=== PATIENT | female | born 1945 | race Caucasian/White ===

== ENCOUNTER 2020-12-06 05:11 | Inpatient (IN) ==
--- NOTE | 2020-11-26 06:54 | History & Physical Report ---
Date of Service November 26, 2020 date of surgery: 12/06/20 Procedure: Right Total Knee Arthroplasty Assessment & Plan (1) Arthritis of right knee: Risks and benefits of procedure discussed in detail today, patient would like to proceed with a Right total knee replacement at [facility] as scheduled. will obtain medical clearance from Dr Zavala prior to surgery as well as obtain PATs at [facility]. Will place on ASA 81mg po bid x 1 month post op, f/u 2 weeks post op for routine post-operative care and x-ray, sooner if having any problems. will make arrangements for HHPT at the time of discharge. At this point in time, has failed conservative measures and would like to proceed with surgical intervention. The risks and benefits have been discussed including, but not limited to, risk of infection, nerve injury, stiffness, loss of motion, failure to improve, etc. Reasonable outcomes and options of treatment were discussed. An explanation of appropriate alternatives to the procedure that may be advantageous were discussed and their risks and benefits, as well as the risks and benefits of not proceeding with treatment. I offered to answer any additional inquiries concerning the treatment involved. All the patient's questions were answered. The patient is agreeable, understanding of the treatment plan and alternatives, and wishes to proceed with the treatment plan. History of Present Illness Chief Complaint: Right knee pain Primary Care Provider: Marshall Zavala DO Nikki is a 75 year old female who complains of Right knee pain, presents for pre-op evaluation prior to a Right total knee replacement by dr Coronel at [facility]. she complains of pain, decreased range of motion, and stiffness in her right knee. Currently the patient states that the symptoms are moderate-severe. The pain is described as aching, sharp and throbbing. The symptoms are aggravated by ascending stairs, daily activities, first steps while awake walking. Prior NSAIDs include IBU and Aleve. xrays show advanced DJD of the Right knee. Allergies Allergy/AdvReac Type Severity Reaction Status Date / Time No Known Allergies Allergy Mild 0 Verified 11/13/20 13:23 Home Medications Medication Instructions Recorded Confirmed Type Focus Factor 1 dose PO QDL 08/01/20 11/13/20 History levothyroxine 150 mcg PO QAM 08/01/20 11/13/20 History melatonin 20 mg PO HS 08/01/20 11/13/20 History mirabegron [Myrbetriq] 50 mg PO QDL 08/01/20 11/13/20 History oxazepam 30 mg PO TID 08/01/20 11/13/20 History peg 400-propylene glycol (PF) 1 drp OPHTHALMIC (EYE) BID PRN 08/01/20 11/13/20 History [Systane (PF)] vitamins A,C,R-jnxe-rjbvvp 1 tab PO QDL 08/01/20 11/13/20 History [PreserVision AREDS] Past Med/Surg History Medical History Anxiety Balance problem Dry eye syndrome Glaucoma Hypothyroidism Memory problem Osteoarthritis Overactive bladder Urinary incontinence Surgical History History of ankle surgery Left History of cataract surgery RT/LEFT History of colonoscopy History of hysterectomy with unilateral oophorectomy History of right hip replacement History of wisdom tooth extraction Family History Other No family history of adverse response to anesthesia Social History Smoking Status: Former smoker Smoking End Date: 20 + YEARS AGO; Second Hand Exposure: Yes (as a child); Do You Dip or Chew Tobacco: No; Tobacco Cessation Education Requested by Patient: No Hx Alcohol Use: Yes Alcohol type: wine Hx Substance Use: No Preferred Language: Anguill[place] Communication Ability: Effective Furniture Sander Required: No Beliefs That Will Affect Care: None Current Living Situation: Spouse Feels Safe at Home: Yes Safety Concerns: Feels Safe At This Time Assistive Devices: Cane, Glasses and Walker Review of Systems Review of Systems: All systems reviewed & are unremarkable except as noted in HPI & below Constitutional: no fever, no chills and no sweats Respiratory: no cough and no dyspnea Cardiovascular: no chest pain, no dyspnea and no orthopnea Gastrointestinal: no abdominal pain, no nausea and no vomiting Musculoskeletal: as per Subjective / HPI Physical Exam Physical Exam: HT: 5ft 5in WT: 81.6kg BP: 132/84 Constitutional: WD/WN, vitals as above no acute distress Respiratory: normal respiratory effort, lungs clear to auscultation no respiratory distress, no labored breathing and does not use accessory muscles Cardiovascular: RRR, no murmur, no edema Gastrointestinal (Abdomen): normal bowel sounds, soft, nontender, no hepatosplenomegaly Musculoskeletal: Knee: + knee abnormal to inspection (Right Knee- ), + effusion (+1 effusion), + surgical incision (well healed portals), + limited ROM of knee (ROM 0/3/110), + knee ROM with crepitation, + joint line tenderness (medial joint line) and + Brooklyn's sign positive; no deformity, no skin erythema, no ecchymosis, no valgus laxity, no varus laxity, anterior drawer test negative, Heatehr's sign negative and pivot shift test negative Results & Data Results & Data ([facility]) Diagnostic Findings right knee x-ray 4 view series complete loss joint space medial compartment with overall varus alignment, there is also narrowing of the lateral compartment and patellofemoral joint. there is osteophyte formation, subchondral sclerosis noted, no loose bodies, no acute bony pathology. overall impression tricompartmental degenerative changes to the right knee.
--- NOTE | 2020-11-28 10:18 | Anesthesiology Consultation ---
Date of Service November 28, 2020 Assessment & Plan (1) Encounter for pre-operative examination: Case was originally scheduled for 08/29/20. Seen at [facility] be me on 08/04/20. R/S due to COVID pandemic and lack of bed availability. PCP Clearance 08/10/20: "Labs, EKG and CXR personally reviewed. Patient is medically cleared for upcoming orthopedic surgery." COVID Status: As of 11/13 nurse assessment, patient denies travel to endemic area, known exposure/sick contacts, or symptoms of COVID19. Patient aware of need for pre-op COVID test, to be arranged by surgeon's office. Surgeon ordered a UA/culture, and patient was unable to void when she went for her lab work on 11/13. L/M at [facility] for them to f/u with her. Chart Review Chart Review: Acceptable Risk for Surgery and entry level project coordinator initiated (seen at [facility] 08/04/20, surgery R/S due to COVID pandemic) History Surgery Operation Date: 12/06/20 10:05 Proposed Procedures p Right Total Knee Arthroplasty - Hero Coronel DO Height/Weight Height: 5 ft 5 in Weight: 81.647 kg Allergies Allergy/AdvReac Type Severity Reaction Status Date / Time No Known Allergies Allergy Mild 0 Verified 11/13/20 13:23 Medications Home Medications Medication Instructions Recorded Confirmed Last Taken Focus Factor 1 dose PO QDL 08/01/20 11/13/20 Unknown levothyroxine 150 mcg PO QAM 08/01/20 11/13/20 Unknown melatonin 20 mg PO HS 08/01/20 11/13/20 Unknown mirabegron [Myrbetriq] 50 mg PO QDL 08/01/20 11/13/20 Unknown oxazepam 30 mg PO TID 08/01/20 11/13/20 Unknown peg 400-propylene glycol (PF) 1 drp OPHTHALMIC (EYE) BID PRN 08/01/20 11/13/20 Unknown [Systane (PF)] vitamins A,C,D-kqoz-kndhuj 1 tab PO QDL 08/01/20 11/13/20 Unknown [PreserVision AREDS] Past Medical History Medical History Anxiety Balance problem Dry eye syndrome Glaucoma Hypothyroidism Memory problem Osteoarthritis Overactive bladder Urinary incontinence Past Family History Family History Other No family history of adverse response to anesthesia Past Surgical History Surgical History History of ankle surgery Left History of cataract surgery RT/LEFT History of colonoscopy History of hysterectomy with unilateral oophorectomy History of right hip replacement History of wisdom tooth extraction Social History Smoking Status: Former smoker tobacco type: cigarettes Do You Dip or Chew Tobacco: No Smoking End Date: 20 + YEARS AGO Hx Alcohol Use: Yes Alcohol type: wine alcohol intake frequency: holidays/special occasions only Hx Substance Use: No substance use type: does not use Testing Laboratory Results 11/13/20 WBC: 7.0 H/H: 12.4/37.4 PLATELETS: 325 SODIUM: 135 POTASSIUM: 4.0 CHLORIDE: 100 CO2: 27 BUN: 9 CREATININE: 0.70 GLUCOSE: 109 A1C: 5.3% PT: 11.1 INR: 1.0 TYPE AND SCREEN (08/04/20): O+, antibody screen +. Per blood bank, no further testing needed prior to surgery. Electrocardiogram Date: 08/04/20 Findings: + SB @ (57bpm) with sinus arrhythmia. Chest X-Ray Date: 08/04/20 Findings: + NAD
[2020-12-06] MEDS ORDERED: TRANEXAMIC ACID 1,000 MG **IV Intra-op IV SCH (06:00)
[2020-12-06] MEDS ORDERED: METOCLOPRAMIDE HCL 10 MG TABLET PO SCH (06:00)
[2020-12-06] MEDS ORDERED: TRANEXAMIC ACID 1,000 MG **IV Pre-op IV SCH (06:00)
[2020-12-06] MEDS ORDERED: FAMOTIDINE 20 MG TAB PO SCH (06:00)
[2020-12-06] MEDS ORDERED: CeleBREX 200 MG CAP PO SCH (06:00)
[2020-12-06] MEDS ORDERED: GABAPENTIN 300 MG CAP PO SCH (06:00)
[2020-12-06] MEDS ORDERED: oxyCODONE HCL 10 MG TABCR (OxyCONTIN) PO SCH (06:00)
[2020-12-06] MEDS ORDERED: ROPIVACAINE 0.5% HCL/PF 150 MG, BUPIVACAINE 0.75% MPF 20 ML, EPINEPHrine 30MG/30ML (OR ... INSTIL SCH (06:00)
[2020-12-06] MEDS ORDERED: ceFAZolin 2000MG 2,000 MG/15 ML SYR IV SCH (06:00)
[2020-12-06] MEDS ORDERED: LR 500ML BOLUS, THEN 15ML/HR IV SCH (06:00)
[2020-12-06] MEDS ORDERED: ACETAMINOPHEN 500 MG TAB PO SCH (06:00)
[2020-12-06] MEDS ORDERED: BUPIVACAINE 0.25% 30 ML VIAL ONE (06:14)
[2020-12-06] MEDS ORDERED: BUPIVACAINE 0.5 % 5 MG/1 ML PF 10ML VIAL ONE (06:14)
[2020-12-06] MEDS ORDERED: EPINEPHrine INJ 1 MG/ML AMP ONE (06:14)
[2020-12-06] MEDS ORDERED: fentaNYL citrate 100 MCG/2 ML VIAL IV PRN (06:43)
[2020-12-06] MEDS ORDERED: ATROPINE SULFATE 0.1 MG/ML 10ML SYR IV PRN (06:43)
[2020-12-06] MEDS ORDERED: ONDANSETRON INJ 2 MG/ML 2 ML VIAL IV PRN ×2 (06:43→09:48)
[2020-12-06] MEDS ORDERED: HYDROmorphone INJ 2 MG/ML SYR/VIAL IV PRN (06:43)
[2020-12-06] MEDS ORDERED: ePHEDrine sulfate 50 MG/ML AMP IV PRN (06:43)
[2020-12-06] MEDS ORDERED: LIDOCAINE HCL 2% 2 ML VIAL/AMP(20MG/ML) INFIL ONE (06:45)
[2020-12-06] MEDS ORDERED: PROPOFOL IV EMULSION 10 MG/ML 20 ML VIAL IV ONE ×2 (06:45→08:07)
[2020-12-06] MEDS ORDERED: MIDAZOLAM HCL 1 MG/ML 2ML VIAL ONE ×2 (06:45→06:46)
[2020-12-06] MEDS ORDERED: fentaNYL citrate 100 MCG/2 ML VIAL ONE (06:46)
[2020-12-06] MEDS ORDERED: BACITRACIN INJ 50,000 UNIT VIAL ONE (06:49)
[2020-12-06] MEDS ORDERED: ORTHO JOINT ANESTHETIC ONE (06:49)
--- NOTE | 2020-12-06 07:01 | History & Physical Bridge Note ---
Date of Service December 06, 2020 History & Physical Bridge Note I have examined the patient, reviewed the History & Physical and in the interval since the performance of the History & Physical I have noted the following changes of clinical significance: no changes noted
--- NOTE | 2020-12-06 08:14 | Operative Report ---
Post Operative Report Pre & Post Diagnosis Operation Date: 12/06/20 07:00 Pre-Op Diagnosis: Osteoarthritis, Right Knee Post-Op Diagnosis: Osteoarthritis, Right Knee I identified the patient and participated in the time-out.: Yes Procedure Operation Date: 12/06/20 07:00 Actual Procedures p Right Total Knee Arthroplasty(Right) utilizing [employer] nonblock journey to total knee arthroplasty size 5 femur 4 tibia 10 polyethylene 32 oval patella- Hero Coronel DO Surgeon Hero Coronel DO Professor Of Medicine [facility] COLMENARES Estimated Blood Loss 5 Findings Consistent with Post-Op Diagnosis Patient presents with severe end-stage DJD valgus alignment of 15degrees with a pseudolaxity of her medial collateral ligament eburnated bone marginal osteophyte subchondral sclerosis with subchondral cystic changes and a large effusion Specimens Bone and cartilage Drains Medium bore Hemovac Anesthesia Type MAC Spinal Regional Disposition Accompanied Patient To Recovery: No Disposition: Recovery Room Indications Patient presents with severe end-stage DJD right knee no response to conservative management transfer right total knee arthroplasty for failed attempted corticosteroid injection Visco supplementation bracing relative rest activity modification Description of Procedure After proper prepping and draping of the Right lower extremity anterior midline incision was made over the region of the extensor extensor mechanism after meticulous hemostasis was obtained and maintained in subcutaneous tissues a medial parapatellar incision was made The patella was subluxed lateralward the medial lateral gutter were cleaned from any hypertrophic synovitis and scar tissue of the distal femoral block was placed and the distal femoral osteotomy cut was made subsequently the chamfers anterior and posterior osteotomy cuts were made utilizing the 4-in-1 block the tibia was subsequently subluxed anteriorward medial and ateral meniscal remnants were excised in their entirety remnants of the anterior and posterior cruciate ligaments were excised in their entirety excellent exposure of the proximal tibia was obtained the tibial osteotomy guide was placed on the proximal tibial osteotomy cut was made once again the knee was irrigated with copious amounts of sterile saline solution the patella was subsequently everted lateralward thickened scar tissue around the patella was removed the patella was subsequently cut utilizing a freehand technique and was drilled prepared for final preparation and placement of pa tella haritha flexion-extension gaps were checked and the equal and symmetric trials were placed to the appropriate femoral and tibial trials with poly-spacer being placed for equal flexion and extension gaps and full range of motion including extension to 0 and flexion to 140 the trial components after having been taken to recovery range of motion was subsequently removed meticulous hemostasis was obtained and maintained subsequently a knee block injection of joint cocktail including ropivacaine 0.5% 150 mg. Bupivacaine 0.5% epinephrine 1-200,030 mL's toradol 30 mg dexamethasone 4 mg ketamine 10 mg clonidine 100 micrograms normal saline solution 30 mg was infiltrated into the soft tissues of the posterior knee medial lateral gutters and periosteal synovium special attention was paid to protect neurovascular structures at all times subsequently trial components having been removed the knee was irrigated with sterile saline solution. debris was removed the proximal tibia was subsequently prepared and was made ready for the placement of the tibial component tibial component was also cemented and tamped into position the femoral component was subsequently placed and cemented in the position the patellar component was subsequently cemented in position because hemostasis once again obtained and maintained wound having been thoroughly irrigated with debridement and debridement lavage was performed as well as a medial parapatellar incision closed with #1 Vicryl in interrupted fashion subcutaneous was closed with #2 Vicryl skin was closed with skin clips. PA-C was necessary for prepping and drapping as well as wound closure of deep fascia Sub cutaneous tissue and skin and was necessary for the case. A sterile compressive dressing was placed patient was taken to recovery in stable condition of report dictated by Homer I attest to the content of the Intraoperative Record and any orders documented therein. Any exceptions are noted below. I attest to the content of the Intraoperative Record and any orders documented therein. Any exceptions are noted below.
--- NOTE | 2020-12-06 09:15 | XRay Report ---
RIGHT KNEE 2 VIEWS History: Right total knee arthroplasty. Degenerative arthritis. Postop. FINDINGS: The patient is status post a right total knee arthroplasty. The hardware is intact. No frac ture or dislocation. Skin melissa and surgical drains are in place. IMPRESSION: Right total knee arthroplasty. No evidence for hardware complication. ACT 112: Negative or not required by law. Electronically signed by: Evans Prakash M.D. 12/06/2020 9:14 AM
[2020-12-06] MEDS ORDERED: HYDROmorphone INJ 1 MG/ML SYRINGE IV PRN (09:48)
[2020-12-06] MEDS ORDERED: MAGNESIUM HYDROXIDE SUSP 30 ML UDC PO PRN (09:48)
[2020-12-06] MEDS ORDERED: bisacodyL 10 MG SUPP PR PRN (09:48)
[2020-12-06] MEDS ORDERED: METOCLOPRAMIDE HCL INJ 5 MG/ML 2 ML VIAL IV PRN (09:48)
[2020-12-06] MEDS ORDERED: NALOXONE HCL 0.4 MG/1 ML VIAL/CARP IV PRN (09:48)
[2020-12-06] MEDS ORDERED: diphenhydrAMINE Capsule 25 MG CAP PO PRN (09:48)
[2020-12-06] MEDS ORDERED: oxyCODONE HCL IR 5 MG TAB (IMMEDIATE RELEASE) PO PRN (09:48)
--- NOTE | 2020-12-06 09:48 | Anesthesiology Progress Note ---
Date of Service December 06, 2020 Anesthesia Post Procedure Vital Signs Vital Signs: Temp Pulse Pulse Resp BP BP Pulse Ox 12/06/20 09:15 36.3 C L 77 16 105/54 L 98 12/06/20 09:05 84 15 110/49 L 98 12/06/20 08:55 92 H 16 115/56 L 98 12/06/20 08:49 36.1 C L 103 H 16 117/72 97 12/06/20 05:41 36.6 C 66 18 139/68 97 Transfer of Care Handoff Completed per policy Notes Mental Status: alert / awake / arousable and participated in evaluation Patient Amnestic to Procedure: Yes Nausea / Vomiting: adequately controlled Pain: adequately controlled Airway Patency, RR, SpO2: stable & adequate BP & HR: stable & adequate Hydration State: stable & adequate Anesthetic Complications: no major complications apparent and Pt Satisfied with anesthetic care
[2020-12-06] MEDS: SODIUM CHLORIDE 0.9% 1000ML 1,000 ML IV SCH ×2 (10:11→21:33)
[2020-12-06] MEDS ORDERED: ARTIFICIAL TEARS OP PRN (10:17)
[2020-12-06] MEDS: MULTIVITAMIN TAB PO SCH (11:01)
[2020-12-06] MEDS: ASPIRIN 81 MG ECTAB PO SCH ×2 (11:01→21:24)
[2020-12-06] MEDS: DOCUSATE SODIUM 100 MG CAP PO SCH ×2 (11:01→21:24)
[2020-12-06] MEDS: MIRABEGRON ER 25 MG TAB PO SCH (11:01)
[2020-12-06] MEDS: KETOROLAC TROMETHAMINE 15 MG/ML VIAL IV SCH ×3 (11:03→23:10)
[2020-12-06] MEDS: LORazepam 1 MG TAB PO SCH ×2 (15:04→21:33)
[2020-12-06] MEDS: ACETAMINOPHEN 500 MG TAB PO SCH ×2 (15:05→21:24)
[2020-12-06] MEDS: ceFAZolin 2000MG 2,000 MG/15 ML SYR IV SCH ×2 (15:12→23:10)
[2020-12-06] MEDS: SENNA 8.6 MG TAB PO SCH (21:24)
[2020-12-06] MEDS: MELATONIN 3 MG TAB PO SCH (21:33)
[2020-12-07] MEDS: KETOROLAC TROMETHAMINE 15 MG/ML VIAL IV SCH (05:47)
[2020-12-07] MEDS: LEVOTHYROXINE SODIUM 150 MCG TABLET PO SCH (05:47)
[2020-12-07] MEDS: ACETAMINOPHEN 500 MG TAB PO SCH ×3 (05:47→20:53)
[2020-12-07 06:47] LABS: Hemoglobin 10.6 g/dL (12.0-16.0); Mean Corpuscular Hemoglobin 31.4 pg (25-34); Mean Corpuscular Hgb Conc 34.2 g/dL (32-36); Mean Corpuscular Volume 91.7 fL (80-100); Mean Platelet Volume 10.1 fL (7.4-10.4); Platelet Count 298 K/uL (130-400); RDW Coefficient of Variation 12.1 % (11.5-14.5); RDW Standard Deviation 41.2 fL (36.4-46.3); Red Blood Count 3.38 M/uL (4.2-5.4); White Blood Count 16.12 K/uL (4.8-10.8)
[2020-12-07] MEDS: SODIUM CHLORIDE 0.9% 1000ML 1,000 ML IV SCH (06:57)
[2020-12-07 07:13] LABS: BUN Creatinine Ratio 13.2 (10-20); Est GFR (African American) 57.7; Est GFR (Non-African American) 49.8; Potassium 3.4 mmol/L (3.5-5.1)
--- NOTE | 2020-12-07 07:48 | Orthopedic Progress Note ---
Date of Service December 07, 2020 Assessment & Plan (1) History of total right knee replacement: POD #1 s/p Right TKA pt/ot dvt proph with JIL/SCD/ASA plan for d/c home with home health PT, recheck after PT today. Admission and Anticipated Discharge Date Admission Date: December 06, 2020 Subjective POD #1 s/p Right TKA Review of Systems Constitutional: no fever, no chills and no sweats Respiratory: no cough and no dyspnea Cardiovascular: no chest pain and no dyspnea Gastrointestinal: no abdominal pain, no nausea and no vomiting Physical Exam Physical Exam: Vital Signs Temp 37.0 C 12/07/20 07:17 Pulse 74 12/07/20 07:17 Resp 18 12/07/20 07:17 BP 151/71 H 12/07/20 07:17 Pulse Ox 97 12/07/20 07:17 Intake & Output 12/06/20 12/07/20 12/07/20 18:59 06:59 18:59 Intake Total 2275 / 3635 1360 / 3635 Output Total 480 / 2505 2025 / 2505 250 / 250 Balance 1795 / 1130 -665 / 1130 -250 / -250 Intake: IV 800 / 1800 1000 / 1800 Lr 1,000 ml @ 15 mls/hr IV . 600 / 600 Q24H [facility] Rx#:[id number] Nss 1000ML 1,0 00 ml @ 100 mls/ 1000 / 1000 hr IV .Q10H [facility] Rx#:[id number] TRANEXAMIC ACI D / 0.7% NACL 1, 200 / 200 000 mg In 100 ml @ 600 mls/hr IV TODAY@0600 [facility] Rx#:[id number] IV Perioperative 900 / 900 Oral 575 / 935 360 / 935 Output: Urine 400 / 2275 1875 / 2275 250 / 250 Estimated Blood Loss 5 / 5 Drain Output 75 / 225 150 / 225 Right Knee Hem ovac 75 / 225 150 / 225 Constitutional: WD/WN, vitals as above no acute distress Musculoskeletal: Right Leg: NVDI, calf SNT, negative anna sign. DP palpable, able to wiggle toes/ankle movement without difficulty. dressing clean dry and intact. Results & Data ([facility]) Vital Signs (Past 12 Hours) Vital Signs Temp Pulse Pulse Resp BP Pulse Ox 12/07/20 07:17 37.0 C 74 18 151/71 H 97 12/07/20 02:00 36.3 C L 73 20 127/65 96 12/06/20 22:00 37.2 C 83 20 131/67 94 Laboratory Results Laboratory Results WBC 16.12 K/uL (4.8-10.8) H 12/07/20 06:29 RBC 3.38 M/uL (4.2-5.4) L 12/07/20 06:29 Hgb 10.6 g/dL (12.0-16.0) L 12/07/20 06:29 Hct 31.0 % (37-47) L 12/07/20 06:29 MCV 91.7 fL (80-100) 12/07/20 06:29 MCH 31.4 pg (25-34) 12/07/20 06:29 MCHC 34.2 g/dL (32-36) 12/07/20 06:29 RDW Std Deviation 41.2 fL (36.4-46.3) 12/07/20 06:29 RDW Coeff of Sandra 12.1 % (11.5-14.5) 12/07/20 06:29 Plt Count 298 K/uL (130-400) 12/07/20 06:29 MPV 10.1 fL (7.4-10.4) 12/07/20 06:29 Sodium 142 mmol/L (136-145) 12/07/20 06:29 Potassium 3.4 mmol/L (3.5-5.1) L 12/07/20 06:29 Chloride 111 mmol/L (98-107) H 12/07/20 06:29 Carbon Dioxide 25 mmol/L (21-32) 12/07/20 06:29 Anion Gap 6.0 (3-11) 12/07/20 06:29 BUN 14 mg/dl (7-18) 12/07/20 06:29 Creatinine 1.08 mg/dl (0.6-1.2) 12/07/20 06:29 Est Cr Clr Drug Dosing 46.0 ml/min 12/07/20 06:29 Est GFR ( Amer) 57.7 12/07/20 06:29 Est GFR (Non-Af Amer) 49.8 12/07/20 06:29 BUN/Creatinine Ratio 13.2 (10-20) 12/07/20 06:29 Glucose 105 mg/dl (70-99) H 12/07/20 06:29 Calcium 9.0 mg/dl (8.5-10.1) 12/07/20 06:29 Blood Type O Positive 12/06/20 05:37 Antibody Screen POSITIVE A 12/06/20 05:37 Antibody Identification Anti-E Anti-c 12/06/20 05:37 Antibody Identification Anti-E Anti-c 12/06/20 05:37 Antibody ID Comment 12/06/20 05:37 Crossmatch See Detail 12/06/20 05:37 Diagnostic Findings RIGHT KNEE 2 VIEWS History: Right total knee arthroplasty. Degenerative arthritis. Postop. FINDINGS: The patient is status post a right total knee arthroplasty. The hardware is intact. No fracture or dislocation. Skin melissa and surgical drains are in place. IMPRESSION: Right total knee arthroplasty. No evidence for hardware complication.
[2020-12-07] MEDS: DOCUSATE SODIUM 100 MG CAP PO SCH ×2 (09:32→20:50)
[2020-12-07] MEDS: LORazepam 1 MG TAB PO SCH ×3 (09:32→20:59)
[2020-12-07] MEDS: MULTIVITAMIN TAB PO SCH (09:33)
[2020-12-07] MEDS: ASPIRIN 81 MG ECTAB PO SCH ×2 (09:33→20:52)
--- NOTE | 2020-12-07 10:21 | Orthopedic Progress Note ---
Date of Service December 07, 2020 Assessment & Plan (1) History of total right knee replacement: POD #1 s/p Right TKA pt/ot dvt proph with JIL/SCD/ASA plan for d/c home with home health PT, recheck after PT today. Admission and Anticipated Discharge Date Admission Date: December 06, 2020 Subjective Postop day 1 Patient sitting up in bed awake and alert. Pain is controlled. She had a rough night with not sleeping much. Denies shortness of breath, chest pain, lightheadedness. She is hoping to go home today. Physical Exam Physical Exam: Dressings are clean, dry, and intact. Calves are soft nontender. Neurovascular intact. Toes are mobile. She has good dorsiflexion and plantarflexion of the right foot. Hemovac drainage was around 50 mL from the previous shift. Results & Data ([facility]) Vital Signs (Past 12 Hours) Vital Signs Temp Pulse Pulse Resp BP Pulse Ox 12/07/20 07:17 37.0 C 74 18 151/71 H 97 12/07/20 02:00 36.3 C L 73 20 127/65 96 Laboratory Results Laboratory Results WBC 16.12 K/uL (4.8-10.8) H 12/07/20 06:29 RBC 3.38 M/uL (4.2-5.4) L 12/07/20 06:29 Hgb 10.6 g/dL (12.0-16.0) L 12/07/20 06:29 Hct 31.0 % (37-47) L 12/07/20 06:29 MCV 91.7 fL (80-100) 12/07/20 06:29 MCH 31.4 pg (25-34) 12/07/20 06:29 MCHC 34.2 g/dL (32-36) 12/07/20 06:29 RDW Std Deviation 41.2 fL (36.4-46.3) 12/07/20 06:29 RDW Coeff of Sandra 12.1 % (11.5-14.5) 12/07/20 06:29 Plt Count 298 K/uL (130-400) 12/07/20 06:29 MPV 10.1 fL (7.4-10.4) 12/07/20 06:29 Sodium 142 mmol/L (136-145) 12/07/20 06:29 Potassium 3.4 mmol/L (3.5-5.1) L 12/07/20 06:29 Chloride 111 mmol/L (98-107) H 12/07/20 06:29 Carbon Dioxide 25 mmol/L (21-32) 12/07/20 06:29 Anion Gap 6.0 (3-11) 12/07/20 06:29 BUN 14 mg/dl (7-18) 12/07/20 06:29 Creatinine 1.08 mg/dl (0.6-1.2) 12/07/20 06:29 Est Cr Clr Drug Dosing 46.0 ml/min 12/07/20 06:29 Est GFR ( Amer) 57.7 12/07/20 06:29 Est GFR (Non-Af Amer) 49.8 12/07/20 06:29 BUN/Creatinine Ratio 13.2 (10-20) 12/07/20 06:29 Glucose 105 mg/dl (70-99) H 12/07/20 06:29 Calcium 9.0 mg/dl (8.5-10.1) 12/07/20 06:29 Blood Type O Positive 12/06/20 05:37 Antibody Screen POSITIVE A 12/06/20 05:37 Antibody Identification Anti-E Anti-c 12/06/20 05:37 Antibody Identification Anti-E Anti-c 12/06/20 05:37 Antibody ID Comment 12/06/20 05:37 Crossmatch See Detail 12/06/20 05:37
[2020-12-07] MEDS: MIRABEGRON ER 25 MG TAB PO SCH (12:55)
[2020-12-07] MEDS: traMADol HCL 50 MG TABLET PO PRN ×2 (17:10→21:11)
[2020-12-07] MEDS: SENNA 8.6 MG TAB PO SCH (20:51)
[2020-12-07] MEDS: CeleBREX 200 MG CAP PO SCH (20:52)
[2020-12-07] MEDS ORDERED: QUEtiapine FUMARATE 25 MG TABLET PO SCH (21:00)
[2020-12-07] MEDS: MELATONIN 3 MG TAB PO SCH (21:58)
--- NOTE | 2020-12-07 22:27 | Hospitalist Consultation ---
Date of Consultation December 07, 2020 Assessment & Plan (1) Acute metabolic encephalopathy: Appears patient has metabolic encephalopathy, may be multifactorial, perhaps being in the hospital, effects from anesthesia, effect from lorazepam. Will add seroquel 25 mg PO HS. will monitor, May require to increase dose. will continue benzo, melatonin DVT per primary service (2) Anxiety: continue benzo. History of Present Illness Reason for Consultation: confusion Attending Physician: Hero Coronel DO History of Present Illness 75 yo female with PMH of anxiety presents to the hospital for a Right total knee replacemet. After the procedure, patient has been confused. She is a poor historian. Orthopedic service consulted medicine for assistance. Allergies Allergy/AdvReac Type Severity Reaction Status Date / Time No Known Allergies Allergy Mild 0 Verified 12/06/20 05:35 Home Medications Medication Instructions Recorded Confirmed Type Focus Factor 1 dose PO QDL 08/01/20 12/06/20 History levothyroxine 150 mcg PO QAM 08/01/20 11/13/20 History melatonin 20 mg PO HS 08/01/20 12/06/20 History mirabegron [Myrbetriq] 50 mg PO QDL 08/01/20 12/06/20 History oxazepam 30 mg PO TID 08/01/20 11/13/20 History peg 400-propylene glycol (PF) 1 drp OPHTHALMIC (EYE) BID PRN 08/01/20 12/06/20 History [Systane (PF)] vitamins A,C,P-pbyo-eoqhns 1 tab PO QDL 08/01/20 12/06/20 History [PreserVision AREDS] acetaminophen 1,000 mg PO Q8 21 Days #126 tab 12/07/20 Rx aspirin 81 mg PO BID 30 Days #60 tab 12/07/20 Rx cefadroxil 500 mg PO BID 7 Days #14 cap 12/07/20 Rx celecoxib [Celebrex] 200 mg PO BID 30 Days #60 cap 12/07/20 Rx docusate sodium 100 mg PO BID 10 Days #20 cap 12/07/20 Rx Patient History Medical History Anxiety Balance problem Dry eye syndrome Glaucoma Hypothyroidism Memory problem Osteoarthritis Overactive bladder Urinary incontinence Surgical History History of ankle surgery Left History of cataract surgery RT/LEFT History of colonoscopy History of hysterectomy with unilateral oophorectomy History of right hip replacement History of wisdom tooth extraction Family History Other No family history of adverse response to anesthesia Social History Smoking Status: Former smoker Smoking End Date: 20 + YEARS AGO; Second Hand Exposure: Yes (as a child); Do You Dip or Chew Tobacco: No; Tobacco Cessation Education Requested by Patient: No Hx Alcohol Use: Yes Alcohol type: wine Hx Substance Use: No Preferred Language: Vincentian Communication Ability: Effective 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: No Beliefs That Will Affect Care: None marital status: Current Living Situation: Spouse Feels Safe at Home: Yes Safety Concerns: Feels Safe At This Time Assistive Devices: Denture - Upper, Glasses and Walker Review of Systems Review of Systems: Unobtainable due to cognitive status Physical Exam Constitutional: WD/WN, vitals as above Eyes: PERRL, conjunctivae normal, anicteric sclerae ENMT: external ear and nose normal, oropharynx normal Neck: trachea midline, no thyromegaly Respiratory: normal respiratory effort, lungs clear to auscultation Cardiovascular: RRR, no murmur, no edema Gastrointestinal (Abdomen): normal bowel sounds, soft, nontender, no hepatosplenomegaly Musculoskeletal: no cyanosis or clubbing, extremities motor strength 5/5 Skin: no rashes, warm and dry Psychiatric: A+Ox3, euthymic affect Results & Data Results & Data ([facility]) Vital Signs (Past 12 Hours) Vital Signs Temp Pulse Resp BP Pulse Ox 12/07/20 20:05 37.2 C 104 H 18 184/82 H 93 12/07/20 15:56 97 12/07/20 15:02 36.8 C 106 H 18 144/75 H 96 PG Care Time/CCT Total # of Minutes Spent Total Time Spent with Patient: Total time spent is greater than 50% in coordination of care (as documented) at patient's floor/unit and/or counseling patient: Coding Level of Care Code 80320 Inpt Consult Level 4 Diagnoses Acute metabolic encephalopathy G93.41 Anxiety F41.9 Time Spent (min) 40
[2020-12-08] MEDS: ACETAMINOPHEN 500 MG TAB PO SCH ×4 (06:03→22:32)
[2020-12-08] MEDS: LEVOTHYROXINE SODIUM 150 MCG TABLET PO SCH (06:04)
[2020-12-08 06:49] LABS: Basophils # (auto) 0.03 K/uL (0-0.2); Basophils % (auto) 0.2 %; Eosinophils # (auto) 0.28 K/uL (0-0.5); Eosinophils % (auto) 2.2 %; Hematocrit (blood only) 28.7 % (37-47); Hemoglobin 9.5 g/dL (12.0-16.0); Immature Granulocytes # (auto) 0.03 K/uL (0.00-0.02); Immature Granulocytes % (auto) 0.2 %; Lymphocytes # (auto) 2.17 K/uL (1.2-3.4); Lymphocytes % (auto) 17.1 %; Mean Corpuscular Hemoglobin 30.6 pg (25-34); Mean Corpuscular Hgb Conc 33.1 g/dL (32-36); Mean Corpuscular Volume 92.6 fL (80-100); Mean Platelet Volume 10.1 fL (7.4-10.4); Monocytes # (auto) 1.61 K/uL (0.11-0.59); Monocytes % (auto) 12.7 %; Neutrophils # (auto) 8.59 K/uL (1.4-6.5); Neutrophils % (auto) 67.6 %; Platelet Count 285 K/uL (130-400); RDW Coefficient of Variation 12.4 % (11.5-14.5); RDW Standard Deviation 41.7 fL (36.4-46.3); White Blood Count 12.71 K/uL (4.8-10.8)
[2020-12-08 07:21] LABS: BUN Creatinine Ratio 12.3 (10-20); Calcium 8.4 mg/dl (8.5-10.1); Creatinine Clr Calc Pharmacy 59.9 ml/min; Est GFR (African American) 79.4; Est GFR (Non-African American) 68.5; Phosphorus 3.5 mg/dl (2.5-4.9); Potassium 3.5 mmol/L (3.5-5.1)
--- NOTE | 2020-12-08 07:35 | Orthopedic Progress Note ---
Date of Service December 08, 2020 Assessment & Plan (1) History of total right knee replacement: POD #2 s/p Right TKA pt/ot dvt proph with JIL/SCD/ASA plan for d/c home with home health PT, recheck after PT today. she is less confused today, alert to place and time. she is aware that she is at [facility] and that Dr Coronel is her surgeon. will recheck later today to check her progress. hold oxycodone, currently on Tylenol and Ultram. Admission and Anticipated Discharge Date Admission Date: December 06, 2020 Subjective POD #2 s/p Right TKA Review of Systems Constitutional: no fever and no chills Respiratory: no cough and no dyspnea Cardiovascular: no chest pain, no dyspnea and no orthopnea Gastrointestinal: no abdominal pain, no nausea and no vomiting Physical Exam Physical Exam: Vital Signs Temp 36.2 C L 12/08/20 07:10 Pulse 100 H 12/08/20 07:10 Resp 18 12/08/20 07:10 BP 178/82 H 12/08/20 07:10 Pulse Ox 96 12/08/20 07:10 Intake & Output 12/07/20 12/08/20 12/08/20 18:59 06:59 18:59 Intake Total 1000 / 1000 Output Total 300 / 300 Balance 700 / 700 Intake: IV 1000 / 1000 Nss 1000ML 1,0 00 ml @ 100 mls/ 1000 / 1000 hr IV .Q10H SC H Rx#:[id number] Output: Urine 250 / 250 Drain Output 50 / 50 Right Knee Hem ovac 50 / 50 Other: # Unmeasured Voi ds 1 Constitutional: WD/WN, vitals as above no acute distress alert and oriented to place and time, able to identify Dr Coronel as her surgeon and that she had her right knee replaced. Cardiovascular: RRR, no murmur, no edema Gastrointestinal (Abdomen): normal bowel sounds, soft, nontender, no hepatosplenomegaly Musculoskeletal: Right leg: NVDI, calf SNT, negative anna sign. DP palpable, able to wiggle toes/ankle movement without difficulty. dressing clean dry and intact. expected post-operative bruising noted. Results & Data ([facility]) Vital Signs (Past 12 Hours) Vital Signs Temp Pulse Resp BP Pulse Ox 12/08/20 07:10 36.2 C L 100 H 18 178/82 H 96 12/08/20 02:15 37.0 C 104 H 16 159/82 H 93 12/07/20 20:05 37.2 C 104 H 18 184/82 H 93 Laboratory Results Laboratory Results WBC 12.71 K/uL (4.8-10.8) H 12/08/20 06:20 RBC 3.10 M/uL (4.2-5.4) L 12/08/20 06:20 Hgb 9.5 g/dL (12.0-16.0) L 12/08/20 06:20 Hct 28.7 % (37-47) L 12/08/20 06:20 MCV 92.6 fL (80-100) 12/08/20 06:20 MCH 30.6 pg (25-34) 12/08/20 06:20 MCHC 33.1 g/dL (32-36) 12/08/20 06:20 RDW Std Deviation 41.7 fL (36.4-46.3) 12/08/20 06:20 RDW Coeff of Sandra 12.4 % (11.5-14.5) 12/08/20 06:20 Plt Count 285 K/uL (130-400) 12/08/20 06:20 MPV 10.1 fL (7.4-10.4) 12/08/20 06:20 Immature Gran % (Auto) 0.2 % 12/08/20 06:20 Neut % (Auto) 67.6 % 12/08/20 06:20 Lymph % (Auto) 17.1 % 12/08/20 06:20 Mcdonough % (Auto) 12.7 % 12/08/20 06:20 Eos % (Auto) 2.2 % 12/08/20 06:20 Baso % (Auto) 0.2 % 12/08/20 06:20 Neut # (Auto) 8.59 K/uL (1.4-6.5) H 12/08/20 06:20 Lymph # (Auto) 2.17 K/uL (1.2-3.4) 12/08/20 06:20 Mcdonough # (Auto) 1.61 K/uL (0.11-0.59) H 12/08/20 06:20 Eos # (Auto) 0.28 K/uL (0-0.5) 12/08/20 06:20 Baso # (Auto) 0.03 K/uL (0-0.2) 12/08/20 06:20 Immature Gran # (Auto) 0.03 K/uL (0.00-0.02) H 12/08/20 06:20 Sodium 138 mmol/L (136-145) 12/08/20 06:20 Potassium 3.5 mmol/L (3.5-5.1) 12/08/20 06:20 Chloride 107 mmol/L (98-107) 12/08/20 06:20 Carbon Dioxide 24 mmol/L (21-32) 12/08/20 06:20 Anion Gap 7.0 (3-11) 12/08/20 06:20 BUN 10 mg/dl (7-18) 12/08/20 06:20 Creatinine 0.83 mg/dl (0.6-1.2) 12/08/20 06:20 Est Cr Clr Drug Dosing 59.9 ml/min 12/08/20 06:20 Est GFR ( Amer) 79.4 12/08/20 06:20 Est GFR (Non-Af Amer) 68.5 12/08/20 06:20 BUN/Creatinine Ratio 12.3 (10-20) 12/08/20 06:20 Glucose 96 mg/dl (70-99) 12/08/20 06:20 Calcium 8.4 mg/dl (8.5-10.1) L 12/08/20 06:20 Phosphorus 3.5 mg/dl (2.5-4.9) 12/08/20 06:20 Magnesium 2.0 mg/dl (1.8-2.4) 12/08/20 06:20 Blood Type O Positive 12/06/20 05:37 Antibody Screen POSITIVE A 12/06/20 05:37 Antibody Identification Anti-E Anti-c 12/06/20 05:37 Antibody Identification Anti-E Anti-c 12/06/20 05:37 Antibody ID Comment 12/06/20 05:37 Crossmatch See Detail 12/06/20 05:37
[2020-12-08] MEDS: traMADol HCL 50 MG TABLET PO PRN ×2 (07:36→11:39)
[2020-12-08] MEDS: LORazepam 1 MG TAB PO SCH ×2 (08:44→13:43)
[2020-12-08] MEDS: MULTIVITAMIN TAB PO SCH (08:45)
[2020-12-08] MEDS: DOCUSATE SODIUM 100 MG CAP PO SCH ×3 (08:45→22:48)
[2020-12-08] MEDS: ASPIRIN 81 MG ECTAB PO SCH ×3 (08:45→22:49)
[2020-12-08] MEDS: CeleBREX 200 MG CAP PO SCH ×3 (08:45→22:49)
[2020-12-08] MEDS: MIRABEGRON ER 25 MG TAB PO SCH (11:38)
[2020-12-08] MEDS ORDERED: QUEtiapine FUMARATE 25 MG TABLET PO SCH (19:15)
[2020-12-08] MEDS: SENNA 8.6 MG TAB PO SCH ×2 (22:07→22:49)
[2020-12-08] MEDS: MELATONIN 3 MG TAB PO SCH ×2 (22:14→22:49)
--- NOTE | 2020-12-08 22:51 | Hospitalist Progress Note ---
Date of Service December 08, 2020 Assessment & Plan (1) Acute metabolic encephalopathy: Appears patient has metabolic encephalopathy. Appears to be sundowning as she is more agitiated in the later hours of the afternoon then she was in the monring. may be multifactorial, perhaps being in the hospital, effects from anesthesia, effect from lorazepam. Cut back from lorazepam, to q12h given longer half life from oxazepam. Will increase seroquel 50 mg PO HS. will continue to monitor. Patient not exhibiting any focal deficits as she is able to stand walk, and move her extremities, will hold off ct scan for now. Anticipate a slow recovery. DVT per primary service (2) Anxiety: continue benzo as stated above. Admission and Anticipated Discharge Date Admission Date: December 08, 2020 Subjective Patient remains very confused this afternoon. She appears to be more agitated then earlier in the day. Review of Systems Review of Systems: All systems reviewed & are unremarkable except as noted in HPI & below Physical Exam Constitutional: WD/WN, vitals as above Eyes: PERRL, conjunctivae normal, anicteric sclerae ENMT: external ear and nose normal, oropharynx normal Neck: trachea midline, no thyromegaly Respiratory: normal respiratory effort, lungs clear to auscultation Cardiovascular: RRR, no murmur, no edema Gastrointestinal (Abdomen): normal bowel sounds, soft, nontender, no hepatosplenomegaly Musculoskeletal: no cyanosis or clubbing, extremities motor strength 5/5 Skin: no rashes, warm and dry Psychiatric: Orientation: alert and oriented to person; + not oriented to place and + not oriented to time Eye Contact: + poor eye contact Results & Data Results & Data ([facility]) Vital Signs (Past 12 Hours) Vital Signs Temp Pulse Resp BP Pulse Ox 12/08/20 15:00 37.1 C 97 H 16 151/78 H 95 PG Care Time/CCT Total # of Minutes Spent Total Time Spent with Patient: Total time spent is greater than 50% in coordination of care (as documented) at patient's floor/unit and/or counseling patient: Coding Level of Care Code 26554 Subseq Hosp Care Lvl 3 Diagnoses Acute metabolic encephalopathy G93.41 Anxiety F41.9 Time Spent (min) 35
[2020-12-09] MEDS: ACETAMINOPHEN 500 MG TAB PO SCH ×2 (05:12→13:11)
[2020-12-09] MEDS: LEVOTHYROXINE SODIUM 150 MCG TABLET PO SCH (05:13)
[2020-12-09] MEDS ORDERED: LORazepam 1 MG TAB PO SCH (09:00)
[2020-12-09] MEDS: CeleBREX 200 MG CAP PO SCH (09:54)
[2020-12-09] MEDS: DOCUSATE SODIUM 100 MG CAP PO SCH (09:55)
[2020-12-09] MEDS: MULTIVITAMIN TAB PO SCH (09:55)
[2020-12-09] MEDS: ASPIRIN 81 MG ECTAB PO SCH (10:24)
--- NOTE | 2020-12-09 10:24 | Orthopedic Progress Note ---
Date of Service December 09, 2020 Assessment & Plan (1) Status post right knee replacement: Admission and Anticipated Discharge Date Admission Date: 75 yo female stable POD #3 s/p right TKA 1. Med management 2. DVT prophylaxis- ASA, SCDs 3. PT/OT 4. D/C planning- home w/ HH Supervising Physician Co-Signing Physician Notes Patient seen and examined. Agree with DARRIAN Chandler's note as above. Patient looks markedly improved from 2 days ago. Much less confusion. She is ambulating in the hallway and doing well. Pain is controlled. Plan for discharge home today. Subjective Pt resting in chair, pain controlled, denies complaints Physical Exam Physical Exam: Toes mobile, N/V/I, dressing and JOCELIN drain in place Results & Data ([facility]) Vital Signs (Past 12 Hours) Vital Signs Temp Pulse Resp BP Pulse Ox 12/09/20 06:52 37.1 C 105 H 18 145/80 H 95 12/09/20 01:24 36.7 C 104 H 15 113/65 95 Laboratory Results 12/06/20 Range/Units 05:37 Crossmatch See Detail
[2020-12-09] MEDS: MIRABEGRON ER 25 MG TAB PO SCH (11:13)
--- NOTE | 2020-12-09 15:08 | Hospitalist Progress Note ---
Date of Service December 09, 2020 Assessment & Plan (1) Acute metabolic encephalopathy: Appears patient has metabolic encephalopathy. This appears to finally be improving today. She received seroquel 50 mg PO HS and had cut back on lorazepam due to its longer half life. The cause of this may be multifactorial, perhaps being in the hospital, effects from anesthesia, effect from lorazepam. will continue to monitor. Patient not exhibiting any focal deficits as she is able to stand walk, and move her extremities, will hold off ct scan for now. Anticipate awaxing and waning recovery. Updated daughter, who is hopeful for a discharge soon. DVT per primary service (2) Anxiety: continue benzo as stated above. Admission and Anticipated Discharge Date Admission Date: December 08, 2020 Subjective Patient is less confused today. She is aware of her confusion today and knows she is in the hospital for knee surgery. Review of Systems Review of Systems: All systems reviewed & are unremarkable except as noted in HPI & below Physical Exam Constitutional: WD/WN, vitals as above Eyes: PERRL, conjunctivae normal, anicteric sclerae ENMT: external ear and nose normal, oropharynx normal Neck: trachea midline, no thyromegaly Respiratory: normal respiratory effort, lungs clear to auscultation Cardiovascular: RRR, no murmur, no edema Gastrointestinal (Abdomen): normal bowel sounds, soft, nontender, no hepatosplenomegaly Musculoskeletal: no cyanosis or clubbing, extremities motor strength 5/5 Skin: no rashes, warm and dry Psychiatric: A+Ox3, euthymic affect Orientation: alert and oriented to person; + not oriented to place and + not oriented to time Eye Contact: + poor eye contact Results & Data Results & Data ([facility]) Vital Signs (Past 12 Hours) Vital Signs Temp Pulse Pulse Resp BP Pulse Ox 12/09/20 13:29 37.1 C 73 105 H 18 145/80 H 95 12/09/20 06:52 37.1 C 105 H 18 145/80 H 95 PG Care Time/CCT Total # of Minutes Spent Total Time Spent with Patient: Total time spent is greater than 50% in coordination of care (as documented) at patient's floor/unit and/or counseling patient: Coding Level of Care Code 52079 Subseq Hosp Care Lvl 3 Diagnoses Acute metabolic encephalopathy G93.41 Anxiety F41.9 Time Spent (min) 40
--- NOTE | 2020-12-11 07:57 | Discharge Summary ---
Date of Service date of discharge: December 09, 2020 date of admission: 12-06-20 Admission HPI Per Admitting Provider Nikki is a 75 year old female who complains of Right knee pain, presents for pre-op evaluation prior to a Right total knee replacement by dr Coronel at [facility]. she complains of pain, decreased range of motion, and stiffness in her right knee. Currently the patient states that the symptoms are moderate-severe. The pain is described as aching, sharp and throbbing. The symptoms are aggravated by ascending stairs, daily activities, first steps while awake walking. Prior NSAIDs include IBU and Aleve. xrays show advanced DJD of the Right knee. Principal Diagnosis right knee arthritis Discharge Exam Vital Signs Temp 37.1 C 12/09/20 13:29 Pulse 105 H 12/09/20 13:29 Resp 18 12/09/20 13:29 BP 145/80 H 12/09/20 13:29 Pulse Ox 95 12/09/20 13:29 Constitutional WD/WN, vitals as above no acute distress Musculoskeletal Right knee: NVDI, calf SNT, negative anna sign. DP palpable, able to wiggle toes/ankle movement without difficulty. dressing clean dry and intact. expected post-operative bruising noted. Discharge Data Allergies Allergy/AdvReac Type Severity Reaction Status Date / Time No Known Allergies Allergy Mild 0 Verified 12/06/20 05:35 Consultations 12/06/20 09:48 Consult Case Management - Discharge Planning Routine 12/07/20 15:55 Consult Hospitalist Routine Procedures Performed Operation Date: 12/06/20 07:00 Actual Procedures p Right Total Knee Arthroplasty(Right) - Hero Coronel DO Ordered Studies 12/06/20 05:00 US - OR guided needle placemen Routine Hospital Course (1) Status post right knee replacement: Total Time Total Time Spent Total Time Spent (In Minutes): 20 Total Time Includes: Examination of the Patient, Discharge Planning and Medication Reconciliation Discharge Plan Discharge Items Patient Disposition: Home - Home Health Services Reason For Visit: Osteoarthritis, Right Knee Discharge Diagnosis: Right total knee replacement Condition on Discharge: Good Activity: Per Instructions section Weightbearing Comment: WBAT with walker Non-emergency contact: Surgeon Call non-emergency contact if: you have any medication questions, your temperature is above 101, your wound has increased redness, your wound has increased drainage and your wound pain has increased Follow-up/Referrals: Marshall Zavala DO [Primary Care Provider] - Diet: Regular Addtl Attending Provider Instructions: ACTIVITY RECOMMENDATIONS: SELF CARE INSTRUCTIONS AFTER TOTAL KNEE REPLACEMENT A. You may need to continue a physical therapy program after discharge from the hospital. There are several options available to you. Your doctor will assist you in selecting the best one for you. 1. An out-patient facility 2 to 3 times a week for therapy or home therapy. 2. Continue working on all exercises taught to you in the hospital. Your goals should be to increase bending of your knee to 90 degrees and beyond and to fully straighten your knee. B. You may progress at your own pace from walking with a walker or crutches to a cane; then to no assistive devices. C. Make walking a part of your daily routine. Be up as much as comfortable with rest periods throughout the day. Rest with leg elevation is very important. Use the ice wrap frequently for the first 3-4 weeks. D. There are no restrictions on activities. You may ride in a car, shop, participate in mannequin sander and finisher and all social activities. E. Wear the long elastic stockings (JIL hose) 20 hours a day for 2 weeks after surgery. They can be removed several times a day for laundering and for a bath. F. You may shower, no tub baths until cleared by your doctor. SPECIAL CARE INSTRUCTIONS: VERY IMPORTANT TO READ AND REVIEW A. There are a few signs you need to watch for after you are home. Call [facility] [place] if you notice any of the followin. Increased severe knee pain. Some pain is expected especially when you exercise. 2. Increased swelling in your leg or knee; pain or swelling of the calf muscle in either lower leg. 3. Any fluid drainage from the incision. 4. Shortness of breath or chest pain. B. Please call [facility] [place] at if you have any concerns or questions about your operation or recovery. The doctor or his nurse will return your call promptly. C. You must take antibiotics before dental work, bladder, bowel or other surgery. Your doctor will provide you with a permanent care to carry describing this precaution. IMPORTANT: * REMEMBER TO TAKE ASPIRIN, 81 MG, TWICE DAILY FOR 4 WEEKS UNLESS OTHERWISE DIRECTED. THIS IS YOUR BLOOD THINNER. * HIGH RISK PATIENTS MAY BE PRESCRIBED A STRONGER BLOOD THINNER. THIS WILL BE PROVIDED AT DISCHARGE. * CALL IF INCREASED PAIN, REDNESS, DRAINAGE OR FEVER GREATER THAT 101. * WEAR JIL HOSE 20 HOURS PER DAY FOR 2 WEEKS. * JOCELIN Dressing- This is a large suction dressing covering your incision. This will help pull any excess drainage from the wound and allow your incision to heal properly. You may shower with this if you can keep the unit outside of the shower. If any bleeding or leakage is noted please call your doctor's office. This will remain on your incision for 7 days and then should be removed. This can be done yourself or by the home nursing staff if applicable. The entire unit is disposable once removed. Once removed, keep incision clean and dry. If redness or drainage is noted, please call your surgeon. IF INCISION IS LEAKING THROUGH DRESSING, CALL THE OFFICE . FOLLOW UP VISIT: If appointment is not already scheduled: Please call [facility] [place] to make a follow-up appointment for 2 weeks after your surgery at . Pending Studies at Discharge: No Stand-Alone Forms: My [facility] BuyWithMe, Smoking Cessation Medications and DC Order Prescriptions: New celecoxib [Celebrex] 200 mg Capsule 200 mg PO BID 30 Days Qty: 60 RF: 0 aspirin 81 mg Tablet,Delayed Release (Dr/Ec) 81 mg PO BID 30 Days Qty: 60 RF: 0 acetaminophen 500 mg Tablet 1,000 mg PO Q8 21 Days Qty: 126 RF: 0 docusate sodium 100 mg Capsule 100 mg PO BID 10 Days Qty: 20 RF: 0 cefadroxil 500 mg capsule 500 mg PO BID 7 Days Qty: 14 RF: 0 tramadol 50 mg tablet 50 - 100 mg PO Q6 PRN (Reason: pain) Qty: 30 RF: 0 Continued levothyroxine 150 mcg Tablet 150 mcg PO QAM RF: 0 oxazepam 30 mg Capsule 30 mg PO TID RF: 0 Systane (PF) 0.4-0.3 % Dropperette 1 drp OPHTHALMIC (EYE) BID PRN (Reason: Dry Eye(S)) RF: 0 PreserVision AREDS [id number] cavs-vy-vamh Tablet 1 tab PO QDL RF: 0 melatonin 10 mg Tablet 20 mg PO HS RF: 0 Myrbetriq 50 mg Tablet Extended Release 24 Hr 50 mg PO QDL RF: 0 Focus Factor 1 dose PO QDL RF: 0 Discharge Orders: Discharge Order (Routine); Ordered 12/09/20 Ordered By: Zoran Posada/Other Patient Handouts: DVT Post Op Prevention, Cefadroxil tablets or capsules, Celecoxib capsules Admission Data Admit Date/Time: 12/08/20 14:35 Attending Provider: Hero Coronel Admit Provider: Hero Coronel Primary Care Provider: Marshall Zavala Other Providers: David Toribio Other Interventions: Discharge Summary Assessment (RN) Last Done: 12/09/20 13:29
== END 2020-12-09 14:26 | disposition home health service (06) | DRG 469 ==
LOC: ASU 05:11 → 3E 05:11

== ENCOUNTER 2023-01-01 20:24 | Inpatient (IN) ==
--- NOTE | 2023-01-01 21:15 | Emergency Department Note ---
Impression & Plan Low back pain, Ambulatory dysfunction, Recurrent falls, Acute hyponatremia ED Provider Note HISTORY OF PRESENT ILLNESS: Patient is a 77-year-old female presenting with recurrent falls. Daughter helps supply history. Patient reportedly has had a rapid decline in her ability to ta ke care of herself over the last week. She is normally ambulatory with a cane, but transition to a walker and was still having recurrent falls and has been in a wheelchair for the last 2 days. She last fell and struck her head 5 days ago. No reported loss of consciousness. She has had generalized weakness since the fall. Currently complaining of low back pain. Denies any chest pain, shortness of breath or lightheadedness prior to falling. She reports that she just gets tripped up with her shuffling gait. Denies any bowel or bladder incontinence. No reported fevers. Denies any recent sick contact exposures. Patient's daughter reports concern about patient's ability to care for herself at home ROS: as above PHYSICAL EXAM: Constitutional: Patient appears in no acute distress. HENT: Head: Normocephalic and atraumatic. Eyes: EOMI, PERRL Mouth/Throat: Mucous membranes moist. Neck: Trachea midline. Neck supple. No midline cervical spine tenderness to palpation Cardiovascular: RRR, No murmurs, rubs or gallops. Intact distal pulses. Pulmonary/Chest: No respiratory distress. Breath sounds clear and equal bilaterally. No wheezes or rales. No chest wall tenderness to palpation. Abdominal: BS +. Abdomen soft, no tenderness, rebound or guarding. Back: No paraspinal tenderness, no CVA tenderness. Lower lumbar midline tenderness to palpation. Musculoskeletal: No edema, tenderness or deformity noted. Skin: Warm and dry. No rash, erythema, pallor or cyanosis Psychiatric: Appropriate mood and affect for situation. Neurological: Alert and keenly responsive. CN II-XII grossly intact, moving all extremities equally and fully. Patient is able to straight leg raise morena aterally without significant difficulty MDM: - Vitals signs showed hypertension and borderline tachycardia - History obtained via patient and patient's daughter. Patient presents with recurrent falls. Daughter reports that patient has had significant decline in her ambulatory function over the last week. She is normally ambulatory with a cane, but has progressed from a walker and now to a wheelchair secondary to inability to ambulate and weakness. Daughter reports the patient has a significant shuffling gait. She fell and struck her head 5 days ago. She is not on any anticoagulation. Denies any chest pain or shortness of breath. Complaining of low back pain - Chronic conditions affecting care: anxiety; urinary incontinence - Differential diagnoses include, but are not limited to: pneumonia; ACS; UTI; spinal fracture - Order placed for continuous cardiac monitoring. At this time, monitor showed rate of 90 bpm with normal sinus rhythm, per my interpretation. - External medical records reviewed. - EKG reviewed by myself showed normal sinus rhythm. Rate 89 bpm. QTc 445. No acute ischemic changes - Laboratory workup interpreted by myself showed leukocytosis (WBC 14.33); hyponatremia (Na 128 - new for patient - previous has been in 130s); normal creatinine; normal troponin - CXR negative for acute pneumonia, per my interpretation - CT head wo contrast negative for acute intracranial pathology - CT lumbar spine wo contrast negative for acute osseous injury - UA negative for infection. - Discussion was had with psychotherapist social worker about patient's case and need for admission. - Hospitalist, Dr. Villarreal, consulted for admission. [facility] ASSESSMENT AND PLAN: Diagnosis: ambulatory dysfunction; acute hyponatremia; recurrent falls; low back pain Plan: admit Past Med/Surg History Medical History (Updated 01/01/23 @ 22:38 by Billie Palacios MD) Anxiety Balance problem Dry eye syndrome Glaucoma Hypothyroidism Memory problem Osteoarthritis Overactive bladder Urinary incontinence Surgical History (Updated 12/09/20 @ 10:23 by Zoran Chandler) History of ankle surgery Left History of cataract surgery RT/LEFT History of colonoscopy History of hysterectomy with unilateral oophorectomy History of right hip replacement History of wisdom tooth extraction Family History Other No family history of adverse response to anesthesia Social History Smoking Status: Former smoker Second Hand Exposure: Yes (as a child); Hx Alcohol Use: Yes Alcohol type: wine Hx Substance Use: No Preferred Language: Gambian Communication Ability: Effective 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 Required: No Beliefs That Will Affect Care: None marital status: Current Living Situation: Spouse Feels Safe at Home: Yes Assistive Devices: Walker Allergies Allergies Allergy/AdvReac Type Severity Reaction Status Date / Time No Known Allergies Allergy Mild 0 Verified 01/01/23 22:17 Home Meds Home Medications Medication Instructions Recorded Confirmed Prevagen 1 tab PO DAILY 01/01/23 01/01/23 acetaminophen 500 mg tablet 500 mg PO Q6H PRN Fever Or Pain 01/01/23 01/01/23 (Tylenol Extra Strength) calcium carbonate 400 mg calcium 800 mg PO DIRECTED PRN 01/01/23 01/01/23 (1,000 mg) chewable tablet .heartburn cholecalciferol (vitamin D3) 50 50 mcg PO DAILY 01/01/23 01/01/23 mcg (2,000 unit) tablet (Vitamin D3) clotrimazole 1 % topical cream 1 applic topical BID 01/01/23 01/01/23 diclofenac sodium 1 % topical gel 2 g topical QID 01/01/23 01/01/23 docusate sodium 100 mg capsule 100 mg PO BID 01/01/23 01/01/23 escitalopram oxalate 10 mg tablet 10 mg PO DAILY 01/01/23 01/01/23 ibuprofen 200 mg tablet 400 mg PO Q6H PRN Pain 01/01/23 01/01/23 levothyroxine 175 mcg tablet 175 mcg PO DAILY 01/01/23 01/01/23 melatonin 10 mg tablet 10 mg PO HS 01/01/23 01/01/23 mirabegron 50 mg tablet,extended 50 mg PO DAILY 01/01/23 01/01/23 release 24 hr (Myrbetriq) multivitamin 1 tab PO DAILY 01/01/23 01/01/23 naproxen sodium 220 mg tablet 440 mg PO BID PRN Pain 01/01/23 01/01/23 vit C 250 mg-vit E 90 mg-zinc 40 1 tab PO BID 01/01/23 01/01/23 mg-copper 1 [id number] capsule (PreserVision AREDS-2) Results & Data (ED) Vital Signs Vital Signs - 24 hr 01/01/23 20:35 01/01/23 20:57 Temperature 36.3 C L Temperature Source Temporal Artery Scan Pulse Rate 88 92 H Respiratory Rate 18 Blood Pressure 156/83 H Blood Pressure Mean 107 Pulse Oximetry 97 Oxygen Delivery Method Room Air Sepsis Recent Fever Within 48 Hours No Sepsis New/Unexplained Change in Mental Status No Sepsis Action Taken by Nursing No Action Required Laboratory Data 01/01/23 21:05 01/01/23 21:05 Lab Results 01/01/23 01/01/23 01/01/23 Range/Units 21:05 21:05 21:37 WBC 14.33 H (4.8-10.8) K/ul RBC 3.67 L (4.20-5.40) M/uL Hgb 11.9 L (12.0-16.0) g/dl Hct 33.8 L (37.0-47.0) % MCV 92.1 (80.0-100.0) fL MCH 32.4 (25.0-34.0) pg MCHC 35.2 (32.0-36.0) g/dL RDW Std Deviation 40.7 (36.4-46.3) fL RDW Coeff of Sandra 11.9 (11.5-14.5) % Plt Count 372 (130-400) K/uL MPV 9.3 L (9.4-12.4) fL Immature Gran % (Auto) 0.4 % Neut % (Auto) 73.5 % Lymph % (Auto) 15.4 % Greer % (Auto) 9.6 % Eos % (Auto) 0.8 % Baso % (Auto) 0.3 % Neut # (Auto) 10.53 H (1.40-6.50) K/uL Lymph # (Auto) 2.21 (1.2-3.4) K/uL Greer # (Auto) 1.37 H (0.11-0.59) K/uL Eos # (Auto) 0.11 (0-0.50) K/uL Baso # (Auto) 0.05 (0-0.2) K/uL Immature Gran # (Auto) 0.06 (0.01-0.20) K/uL Sodium 128 L (136-145) mmol/L Potassium 3.9 (3.5-5.1) mmol/L Chloride 95 L (98-107) mmol/L Carbon Dioxide 25 (21-32) mmol/L Anion Gap 8 (3-11) BUN 11 (6-23) mg/dl Creatinine 0.67 (0.6-1.2) mg/dl Est Cr Clr Drug Dosing Not Reportable Est GFR ( Amer) 97.6 ml/min Est GFR (Non-Af Amer) 84.2 ml/min BUN/Creatinine Ratio 16.4 (10-20) Glucose 107 H (70-99(Fasting)) mg/dl Calcium 9.1 (8.6-10.3) mg/dl Total Bilirubin 0.5 (0.2-1.0) mg/dl AST 27 (13-39) U/L ALT 9 (7-52) U/L Alkaline Phosphatase 152 H (34-104) U/L Troponin I High Sens 7.6 (0-14) pg/ml Total Protein 7.1 (6.0-8.3) gm/dl Albumin 4.3 (3.4-5.0) gm/dl Globulin 2.8 (2.5-4.0) gm/dl Albumin/Globulin Ratio 1.5 (0.9-2) Urine Color Yellow Urine Appearance Cloudy A (Clear) Urine pH 6.5 (4.5-7.5) Ur Specific [place] 1.011 (1.000-1.030) Urine Protein Negative (Negative) Urine Glucose (UA) Negative (Negative) Urine Ketones Negative (Negative) Urine Blood 2+ H (Negative) Urine Nitrite Negative (Negative) Urine Bilirubin Negative (Negative) Urine Urobilinogen Negative (Negative) Ur Leukocyte Esterase 2+ H (Negative) Urine WBC (Auto) 10-30 H (0-5) /hpf Urine RBC (Auto) 0-4 (0-4) /hpf U Hyaline Cast (Auto) 1-5 (0-5) /lpf U Epithel Cells (Auto) 5-10 H (0-5) /lpf Urine Bacteria (Auto) Negative (Negative) Urine Yeast Present A (None Prsent) Administered Medications Sodium Chloride (Nss 1000ml) 1,000 mls @ 999 mls/hr IV .Q1H1M ONE Stop: 01/01/23 23:28 Last Admin: 01/01/23 22:41 Dose: 999 mls/hr Documented By: Imaging Data Radiologist's Impression: Head CT 01/01/23 21:08 Exam(s): CT HEAD Without Contrast EXAM: CT Head Without Intravenous Contrast CLINICAL HISTORY: Reason for exam: fall from standing; head injury. TECHNIQUE: Axial computed tomography images of the head/brain without intravenous contrast. Automated exposure control was utilized for the study. A dose lowering technique was utilized adhering to the principles of ALARA. COMPARISON: No relevant prior studies available. FINDINGS: No acute intracranial hemorrhage. No midline shift or mass effect. The territorial roth-white matter differentiation is maintained throughout. Age-related cerebral volume loss. Periventricular and subcortical white matter hypoattenuation, consistent with chronic microangiopathy. The visualized orbits appear grossly unremarkable. The calvarium is intact. The visualized paranasal sinuses and mastoid air cells are grossly clear. IMPRESSION: No acute intracranial hemorrhage, midline shift, or mass effect. Electronically signed by: Delfin Decker MD 01/01/23 22:[address] 01/01/23 21:08 Exam(s): CT L SPINE EXAM: CT Lumbar Spine Without Intravenous Contrast CLINICAL HISTORY: Reason for exam: low back pain s/p fall from standing. TECHNIQUE: Axial computed tomography images of the lumbar spine without intravenous contrast. CTDI is 24.54 mGy and DLP is 740.29 mGy-cm. Automated exposure control was utilized for the study. A dose lowering technique was utilized adhering to the principles of ALARA. COMPARISON: No relevant prior studies available. FINDINGS: The vertebral body heights are maintained. The lumbar lordosis is preserved. There is no spondylolisthesis. The posterior elements are maintained, without evidence of acute fracture. The pedicles are intact. Multilevel lumbar spondylosis and degenerative disc disease. Osseous demineralization. IMPRESSION: No acute fracture or subluxation of the lumbar spine. Electronically signed by: Delfin Decker MD 01/01/23 22:33 PM Discharge Plan Visit Data Chief Complaint: Fall Stated Complaint: FALLEN MULTIPLE TIMES, ED Provider: Billie Palacios Discharge Problem: Low back pain, Ambulatory dysfunction, Recurrent falls, Acute hyponatremia Forms Stand Alone Forms: My [facility] Your Policy Manager Prescriptions Prescriptions: No Action multivitamin Tablet 1 tab PO DAILY levothyroxine 175 mcg tablet 175 mcg PO DAILY acetaminophen [Tylenol Extra Strength] 500 mg Tablet 500 mg PO Q6H PRN (Reason: Fever Or Pain) calcium carbonate [Calcium Antacid Ultra Max St] 400 mg calcium (1,000 mg) Tablet,Chewable 800 mg PO DIRECTED PRN (Reason: .heartburn) naproxen sodium 220 mg Tablet 440 mg PO BID PRN (Reason: Pain) ibuprofen 200 mg Tablet 400 mg PO Q6H PRN (Reason: Pain) docusate sodium 100 mg Capsule 100 mg PO BID clotrimazole 1 % Cream 1 applic TOPICAL BID Rx Instructions: Until clear for rash escitalopram oxalate 10 mg tablet 10 mg PO DAILY diclofenac sodium [Voltaren] 1 % Gel 2 g TOPICAL QID cholecalciferol (vitamin D3) [Vitamin D3] 50 mcg (2,000 unit) Tablet 50 mcg PO DAILY melatonin 10 mg Tablet 10 mg PO HS Myrbetriq 50 mg tablet extended release 24 hr 50 mg PO DAILY PreserVision AREDS-2 250-90-40-1 mg Capsule 1 tab PO BID Rx Instructions: softgel Prevagen 1 tab PO DAILY Referrals Referrals: Marshall Zavala DO [Primary Care Provider] -
[2023-01-01 21:26] LABS: Basophils # (auto) 0.05 K/uL (0-0.2); Basophils % (auto) 0.3 %; Eosinophils # (auto) 0.11 K/uL (0-0.50); Eosinophils % (auto) 0.8 %; Hematocrit (blood only) 33.8 % (37.0-47.0); Hemoglobin 11.9 g/dl (12.0-16.0); Immature Granulocytes # (auto) 0.06 K/uL (0.01-0.20); Immature Granulocytes % (auto) 0.4 %; Lymphocytes # (auto) 2.21 K/uL (1.2-3.4); Lymphocytes % (auto) 15.4 %; Mean Corpuscular Hemoglobin 32.4 pg (25.0-34.0); Mean Corpuscular Hgb Conc 35.2 g/dL (32.0-36.0); Mean Corpuscular Volume 92.1 fL (80.0-100.0); Mean Platelet Volume 9.3 fL (9.4-12.4); Monocytes # (auto) 1.37 K/uL (0.11-0.59); Monocytes % (auto) 9.6 %; Neutrophils # (auto) 10.53 K/uL (1.40-6.50); Neutrophils % (auto) 73.5 %; Platelet Count 372 K/uL (130-400); RDW Coefficient of Variation 11.9 % (11.5-14.5); RDW Standard Deviation 40.7 fL (36.4-46.3); Red Blood Count 3.67 M/uL (4.20-5.40); White Blood Count 14.33 K/ul (4.8-10.8)
[2023-01-01 21:44] LABS: Alanine Aminotransferase 9 U/L (7-52); Albumin Globulin Ratio 1.5 (0.9-2); Albumin Level 4.3 gm/dl (3.4-5.0); Alkaline Phosphatase 152 U/L (34-104); Anion Gap 8 (3-11); Aspartate Aminotransferase 27 U/L (13-39); BUN Creatinine Ratio 16.4 (10-20); Bilirubin,Total 0.5 mg/dl (0.2-1.0); Blood Urea Nitrogen 11 mg/dl (6-23); Calcium 9.1 mg/dl (8.6-10.3); Carbon Dioxide 25 mmol/L (21-32); Chloride 95 mmol/L (98-107); Est GFR (African American) 97.6 ml/min; Est GFR (Non-African American) 84.2 ml/min; Globulin 2.8 gm/dl (2.5-4.0); Glucose 107 mg/dl (70-99(Fasting)); Potassium 3.9 mmol/L (3.5-5.1); Sodium 128 mmol/L (136-145); Total Protein 7.1 gm/dl (6.0-8.3)
[2023-01-01 21:51] LABS: Troponin I High Sensitivity 7.6 pg/ml (0-14)
[2023-01-01 22:07] LABS: Appearance Urine Cloudy (Clear); Bacteria Urine Automated Negative (Negative); Bilirubin Urine Negative (Negative); Blood Urine 2+ (Negative); Color Urine Yellow; Glucose Urine UA Negative (Negative); Ketones Urine Negative (Negative); Leukocyte Esterase Urine 2+ (Negative); Nitrite Urine Negative (Negative); Protein Urine Negative (Negative); Specific Gravity Urine 1.011 (1.000-1.030); Urobilinogen Urine Negative (Negative); pH Urine 6.5 (4.5-7.5)
--- NOTE | 2023-01-01 22:16 | CT Scan Report ---
Exam(s): CT HEAD Without Contrast EXAM: CT Head Without Intravenous Contrast CLINICAL HISTORY: Reason for exam: fall from standing; head injury. TECHNIQUE: Axial computed tomography images of the head/brain without intravenous contrast. Automated exposure control was utilized for the study. A dose lowering technique was utilized adhering to the principles of ALARA. COMPARISON: No relevant prior studies available. FINDINGS: No acute intracranial hemorrhage. No midline shift or mass effect. The territorial roth-white matter differentiation is maintained throughout. Age-related cerebral volume loss. Periventricular and subcortical white matter hypoattenuation, consistent with chronic microangiopathy. The visualized orbits appear grossly unremarkable. The calvarium is intact. The visualized paranasal sinuses and mastoid air cells are grossly clear. IMPRESSION: No acute intracranial hemorrhage, midline shift, or mass effect. Electronically signed by: Delfin Decker MD 01/01/23 22:15 PM
[2023-01-01 22:20] LABS: RBC Urine Automated 0-4 /hpf (0-4)
[2023-01-01] MEDS ORDERED: SODIUM CHLORIDE 0.9% 1000ML 1,000 ML IV ONE (22:28)
--- NOTE | 2023-01-01 22:34 | CT Scan Report ---
Exam(s): CT L SPINE EXAM: CT Lumbar Spine Without Intravenous Contrast CLINICAL HISTORY: Reason for exam: low back pain s/p fall from standing. TECHNIQUE: Axial computed tomography images of the lumbar spine without intravenous contrast. CTDI is 24.54 mGy and DLP is 740.29 mGy-cm. Automated exposure control was utilized for the study. A dose lowering technique was utilized adhering to the principles of ALARA. COMPARISON: No relevant prior studies available. FINDINGS: The vertebral body heights are maintained. The lumbar lordosis is preserved. There is no spondylolisthesis. The posterior elements are maintained, without evidence of acute fracture. The pedicles are intact. Multilevel lumbar spondylosis and degenerative disc disease. Osseous demineralization. IMPRESSION: No acute fracture or subluxation of the lumbar spine. Electronically signed by: Delfin Decker MD 01/01/23 22:33 PM
--- NOTE | 2023-01-01 23:38 | History & Physical Report ---
Date of Service January 01, 2023 Assessment & Plan (1) Ambulatory dysfunction: (2) Low back pain: (3) Urinary incontinence: (4) Heart murmur: (5) Acute hyponatremia: (6) Anxiety: (7) Acute metabolic encephalopathy: Plan Ambulatory dysfunction, urinary leakage, memory loss, loss of ADL functioning, frequent falls- Differential including but not limited to: Metabolic encephalopathy, urinary tract infection, hyponatremia, Parkinson's, SDAT, CVA In either case, the patient will not likely be able to return to living with her in [facility], who also is having issues with functioning as well. Her daughter reports that the patient was at [facility] for short interval time, and had a significant number of increased frequency of falls. Will not be able to return there either. Intellectual decline- Ordering MRI brain without contrast to assess for possible CVA Of the possibilities including progression of SNF, and/or development of parkinsonism Hyponatremia- Sodium 128 on admission Serum osmolality 271 Urine osmolality has been ordered but not collected Further management will depend upon further work-up New heart murmur- Order echocardiogram Urinary incontinence- Order urinalysis, urine culture and sensitivity Treat if abnormal Consult PT/OT when appropriate as work-up was completed Disposition- Unless there is a reversible process to treat, patient will likely need to be in a [place] [facility] facility on discharge History of Present Illness Chief Complaint: The patient presents to the emergency department after a series of falls. Her daughter reports a significant decline in her mental acuity, and ability to take care of herself over the past 2 weeks. She had initially been walking with a cane, more recently changed to a walker, and then over the past 2 days has been in a wheelchair. She had been seen by a local neurologist who had question the possibility of NPH and had a CT scan scheduled for next week. Primary Care Provider: Marshall Zavala DO The patient is a 77-year-old female with a past medical history including osteoarthritis, depression, hypothyroidism, insomnia, bladder spasms, urinary leakage and constipation. She is brought to the emergency department by family due to concerns regarding relatively rapid progression of declining function both physically and mentally over the past 2 weeks, and particularly over the past 2 days has transition from walking with a cane to walking with a walker and now being in a wheelchair. The patient is not able to contribute significantly to HPI or review of systems. Work-up in the emergency department included imaging: CT scan of head and lumbar spine were normal, and chest x-ray was normal. Significant laboratories: WBC 14.33, sodium 128 and glucose 107 Allergies Allergy/AdvReac Type Severity Reaction Status Date / Time No Known Allergies Allergy Mild 0 Verified 01/01/23 22:17 Home Medications Medication Instructions Recorded Confirmed Type Prevagen 1 tab PO DAILY 01/01/23 01/01/23 History acetaminophen 500 mg tablet 500 mg PO Q6H PRN Fever Or Pain 01/01/23 01/01/23 History (Tylenol Extra Strength) calcium carbonate 400 mg calcium 800 mg PO DIRECTED PRN 01/01/23 01/01/23 History (1,000 mg) chewable tablet .heartburn cholecalciferol (vitamin D3) 50 50 mcg PO DAILY 01/01/23 01/01/23 History mcg (2,000 unit) tablet (Vitamin D3) clotrimazole 1 % topical cream 1 applic topical BID 01/01/23 01/01/23 History diclofenac sodium 1 % topical gel 2 g topical QID 01/01/23 01/01/23 History docusate sodium 100 mg capsule 100 mg PO BID 01/01/23 01/01/23 History escitalopram oxalate 10 mg tablet 10 mg PO DAILY 01/01/23 01/01/23 History ibuprofen 200 mg tablet 400 mg PO Q6H PRN Pain 01/01/23 01/01/23 History levothyroxine 175 mcg tablet 175 mcg PO DAILY 01/01/23 01/01/23 History melatonin 10 mg tablet 10 mg PO HS 01/01/23 01/01/23 History mirabegron 50 mg tablet,extended 50 mg PO DAILY 01/01/23 01/01/23 History release 24 hr (Myrbetriq) multivitamin 1 tab PO DAILY 01/01/23 01/01/23 History naproxen sodium 220 mg tablet 440 mg PO BID PRN Pain 01/01/23 01/01/23 History vit C 250 mg-vit E 90 mg-zinc 40 1 tab PO BID 01/01/23 01/01/23 History mg-copper 1 [id number] capsule (PreserVision AREDS-2) Past Med/Surg History Medical History (Updated 01/02/23 @ 03:26 by Roosevelt Villarreal MD) Anxiety Balance problem Dry eye syndrome Glaucoma Hypothyroidism Memory problem Osteoarthritis Overactive bladder Urinary incontinence Surgical History (Updated 12/09/20 @ 10:23 by Zoran Chandler) History of ankle surgery Left History of cataract surgery RT/LEFT History of colonoscopy History of hysterectomy with unilateral oophorectomy History of right hip replacement History of wisdom tooth extraction Family History Other No family history of adverse response to anesthesia Social History Smoking Status: Former smoker Second Hand Exposure: Yes (as a child); Hx Alcohol Use: Yes Alcohol type: wine Hx Substance Use: No Preferred Language: [place] Rican Communication Ability: Effective Associate Professor Of Theatre Required: No Beliefs That Will Affect Care: None marital status: Current Living Situation: Spouse Feels Safe at Home: Yes Assistive Devices: Walker Review of Systems Review of Systems: Patient is not able to contribute significantly to her review of systems or HPI Physical Exam Physical Exam: The patient is awake and minimally responsive to questions, well developed and well nourished, normocephalic and atraumatic, lying in bed and in no acute distress. HEENT--PERRL, EOMI, mucous membranes and oropharynx dry. Neck--supple. No JVD. No bruits. Thyroid normal, trachea midline, no a denopathy. Heart--normal S1 and S2. No murmurs, rubs or gallops. Lungs--clear bilaterally, no respiratory distress, no accessory muscle use. Abdomen--normal bowel sounds and soft. Nontender. Nondistended, no hernias or masses, no organomegaly. Extremities--no cyanosis or clubbing. No edema. Dermatologic--normal skin turgor, normal color, no abnormal lymph nodes, no rash. Neurologic--cranial nerves II through XII grossly intact. Rheumatologic--limited exam Psychiatric--normal affect. Results & Data Results & Data Vital Signs (Past 12 Hours) Vital Signs Temp Pulse Resp BP Pulse Ox O2 Del Method 01/01/23 20:57 92 H 01/01/23 20:35 36.3 C L 88 18 156/83 H 97 Room Air Laboratory Results Laboratory Results WBC 14.33 K/ul (4.8-10.8) H 01/01/23 21:05 RBC 3.67 M/uL (4.20-5.40) L 01/01/23 21:05 Hgb 11.9 g/dl (12.0-16.0) L 01/01/23 21:05 Hct 33.8 % (37.0-47.0) L 01/01/23 21:05 MCV 92.1 fL (80.0-100.0) 01/01/23 21: MCH 32.4 pg (25.0-34.0) 01/01/23 21: MCHC 35.2 g/dL (32.0-36.0) 01/01/23 21: RDW Std Deviation 40.7 fL (36.4-46.3) 01/01/23: RDW Coeff of Sandra 11.9 % (11.5-14.5) 01/01/23 21: Plt Count 372 K/uL (130-400) 01/01/23 21: MPV 9.3 fL (9.4-12.4) L 01/01/23 21:05 Immature Gran % (Auto) 0.4 % 01/01/23 21:05 Neut % (Auto) 73.5 % 01/01/23 21:05 Lymph % (Auto) 15.4 % 01/01/23 21:05 [place] % (Auto) 9.6 % 01/01/23 21:05 Eos % (Auto) 0.8 % 01/01/23 21:05 Baso % (Auto) 0.3 % 01/01/23:05 Neut # (Auto) 10.53 K/uL (1.40-6.50) H 01/01/23 21:05 Lymph # (Auto) 2.21 K/uL (1.2-3.4) 01/01/23 21:05 [place] # (Auto) 1.37 K/uL (0.11-0.59) H 01/01/23 21:05 Eos # (Auto) 0.11 K/uL (0-0.50) 01/01/23 21:05 Baso # (Auto) 0.05 K/uL (0-0.2) 01/01/23 21: Immature Gran # (Auto) 0.06 K/uL (0.01-0.20) 01/01/23 21:05 Sodium 128 mmol/L (136-145) L 01/01/23 21:05 Potassium 3.9 mmol/L (3.5-5.1) 01/01/23 21:05 Chloride 95 mmol/L (98-107) L 01/01/23 21:05 Carbon Dioxide 25 mmol/L (21-32) 01/01/23 21:05 Anion Gap 8 (3-11) 01/01/23 21:05 BUN 11 mg/dl (6-23) 01/01/23 21:05 Creatinine 0.67 mg/dl (0.6-1.2) 01/01/23 21:05 Est Cr Clr Drug Dosing Not Reportable 01/01/23 21:05 Est GFR ( Amer) 97.6 ml/min 01/01/23 21:05 Est GFR (Non-Af Amer) 84.2 ml/min 01/01/23 21:05 BUN/Creatinine Ratio 16.4 (10-20) 01/01/23 21:05 Glucose 107 mg/dl (70-99(Fasting)) H 01/01/23 21:05 Osmolality 271 mOsm/kg (280-300) L 01/01/23 21:40 Calcium 9.1 mg/dl (8.6-10.3) 01/01/23 21:05 Total Bilirubin 0.5 mg/dl (0.2-1.0) 01/01/23 21:05 AST 27 U/L (13-39) 01/01/23 21:05 ALT 9 U/L (7-52) 01/01/23 21:05 Alkaline Phosphatase 152 U/L (34-104) H 01/01/23 21:05 Troponin I High Sens 7.6 pg/ml (0-14) 01/01/23 21:05 Total Protein 7.1 gm/dl (6.0-8.3) 01/01/23 21:05 Albumin 4.3 gm/dl (3.4-5.0) 01/01/23 21:05 Globulin 2.8 gm/dl (2.5-4.0) 01/01/23 21:05 Albumin/Globulin Ratio 1.5 (0.9-2) 01/01/23 21:05 Urine Color Yellow 04/12/23 21:37 Urine Appearance Cloudy (Clear) A 01/01/23 21:37 Urine pH 6.5 (4.5-7.5) 01/01/23 21:37 Ur Specific [place] 1.011 (1.000-1.030) 01/01/23 21:37 Urine Protein Negative (Negative) 01/01/23 21:37 Urine Glucose (UA) Negative (Negative) 01/01/23 21:37 Urine Ketones Negative (Negative) 01/01/23 21:37 Urine Blood 2+ (Negative) H 01/01/23 21:37 Urine Nitrite Negative (Negative) 01/01/23 21:37 Urine Bilirubin Negative (Negative) 01/01/23 21:37 Urine Urobilinogen Negative (Negative) 01/01/23 21:37 Ur Leukocyte Esterase 2+ (Negative) H 01/01/23 21:37 Urine WBC (Auto) 10-30 /hpf (0-5) H 01/01/23 21:37 Urine RBC (Auto) 0-4 /hpf (0-4) 01/01/23 21:37 U Hyaline Cast (Auto) 1-5 /lpf (0-5) 01/01/23 21:37 U Epithel Cells (Auto) 5-10 /lpf (0-5) H 01/01/23 21:37 Urine Bacteria (Auto) Negative (Negative) 01/01/23 21:37 Urine Yeast Present (None Prsent) A 01/01/23 21:37 SARS-CoV-2, RNA, NAAT NEGATIVE (NEGATIVE) 01/02/23 01:[address] 01/01/23 21:08 Exam(s): CT HEAD Without Contrast EXAM: CT Head Without Intravenous Contrast CLINICAL HISTORY: Reason for exam: fall from standing; head injury. TECHNIQUE: Axial computed tomography images of the head/brain without intravenous contrast. Automated exposure control was utilized for the study. A dose lowering technique was utilized adhering to the principles of ALARA. COMPARISON: No relevant prior studies available. FINDINGS: No acute intracranial hemorrhage. No midline shift or mass effect. The territorial roth-white matter differentiation is maintained throughout. Age-related cerebral volume loss. Periventricular and subcortical white matter hypoattenuation, consistent with chronic microangiopathy. The visualized orbits appear grossly unremarkable. The calvarium is intact. The visualized paranasal sinuses and mastoid air cells are grossly clear. IMPRESSION: No acute intracranial hemorrhage, midline shift, or mass effect. Electronically signed by: Delfin Decker MD 01/01/23 22:[address] 01/01/23 21:08 Exam(s): CT L SPINE EXAM: CT Lumbar Spine Without Intravenous Contrast CLINICAL HISTORY: Reason for exam: low back pain s/p fall from standing. TECHNIQUE: Axial computed tomography images of the lumbar spine without intravenous contrast. CTDI is 24.54 mGy and DLP is 740.29 mGy-cm. Automated exposure control was utilized for the study. A dose lowering technique was utilized adhering to the principles of ALARA. COMPARISON: No relevant prior studies available. FINDINGS: The vertebral body heights are maintained. The lumbar lordosis is preserved. There is no spondylolisthesis. The posterior elements are maintained, without evidence of acute fracture. The pedicles are intact. Multilevel lumbar spondylosis and degenerative disc disease. Osseous demineralization. IMPRESSION: No acute fracture or subluxation of the lumbar spine. Electronically signed by: Delfin Decker MD 01/01/23 22:33 PM Brain MRI 01/01/23 23:19 Exam(s): MRI HEAD Without Contrast EXAM: MR Head Without Intravenous Contrast CLINICAL HISTORY: Reason for exam: altered mentation, imbalance, urinary incontinence. TECHNIQUE: Magnetic resonance images of the head/brain without intravenous contrast in multiple planes. COMPARISON: No relevant prior studies available. FINDINGS: No acute territorial infarct. No acute intracranial hemorrhage. No midline shift or mass effect. Age-related cerebral volume loss. Periventricular and subcortical white matter T2 signal intensity, consistent with chronic microangiopathy. The visualized orbits appear grossly unremarkable. The calvarium is intact. The visualized paranasal sinuses and mastoid air cells are grossly clear. IMPRESSION: No acute territorial infarct. No acute intracranial hemorrhage. No midline shift or mass effect. Images are degraded by motion artifact. Electronically signed by: Delfin Decker MD 01/02/23 00:45 AM Code Status & VTE Plan Code Status Full code VTE Prophylaxis Plan VTE Prophylaxis will be ordered: Yes PG Care Time/CCT Total # of Minutes Spent Total Time Spent with Patient: Total time spent is greater than 50% in coordination of care (as documented) at patient's floor/unit and/or counseling patient: Coding Level of Care Code 81933 INT INP/OBS CARE MIN Diagnoses Ambulatory dysfunction R26.2 Low back pain M54.50 Urinary incontinence R32 Heart murmur R01.1 Acute hyponatremia E87.1 Anxiety F41.9 Acute metabolic encephalopathy G93.41
--- NOTE | 2023-01-02 00:46 | Magnetic Resonance Report ---
Exam(s): MRI HEAD Without Contrast EXAM: MR Head Without Intravenous Contrast CLINICAL HISTORY: Reason for exam: altered mentation, imbalance, urinary incontinence. TECHNIQUE: Magnetic resonance images of the head/brain without intravenous contrast in multiple planes. COMPARISON: No relevant prior studies available. FINDINGS: No acute territorial infarct. No acute intracranial hemorrhage. No midline shift or mass effect. Age-related cerebral volume loss. Periventricular and subcortical white matter T2 signal intensity, consistent with chronic microangiopathy. The visualized orbits appear grossly unremarkable. The calvarium is intact. The visualized paranasal sinuses and mastoid air cells are grossly clear. IMPRESSION: No acute territorial infarct. No acute intracranial hemorrhage. No midline shift or mass effect. Images are degraded by motion artifact. Electronically signed by: Delfin Decker MD 01/02/23 00:45 AM
[2023-01-02] MEDS ORDERED: OLANZapine 10 MG/2.1 ML SDV IM STA (02:49)
[2023-01-02] MEDS ORDERED: OLANZapine 10 MG/2.1 ML SDV IM ONE (02:56)
[2023-01-02] MEDS ORDERED: CALCIUM CARBONATE 500 MG CHEWABLE TAB PO PRN (04:24)
[2023-01-02] MEDS ORDERED: NSS + 20MEQ KCL 20 MEQ/1,000 ML BAG IV SCH (04:24)
[2023-01-02] MEDS ORDERED: NAPROXEN 250 MG TAB PO PRN (04:24)
[2023-01-02] MEDS ORDERED: ONDANSETRON INJ 2 MG/ML 2 ML VIAL IV PRN (04:24)
[2023-01-02] MEDS ORDERED: Patient's HEIGHT &/or WEIGHT Needed SCH (05:00)
[2023-01-02] MEDS: LEVOTHYROXINE SODIUM 175 MCG TABLET PO SCH (05:52)
[2023-01-02 07:26] LABS: Basophils # (auto) 0.03 K/uL (0-0.2); Basophils % (auto) 0.3 %; Eosinophils # (auto) 0.14 K/uL (0-0.50); Eosinophils % (auto) 1.5 %; Hematocrit (blood only) 33.4 % (37.0-47.0); Hemoglobin 11.4 g/dl (12.0-16.0); Immature Granulocytes # (auto) 0.06 K/uL (0.01-0.20); Immature Granulocytes % (auto) 0.6 %; Lymphocytes # (auto) 1.55 K/uL (1.2-3.4); Lymphocytes % (auto) 16.4 %; Mean Corpuscular Hgb Conc 34.1 g/dL (32.0-36.0); Mean Corpuscular Volume 93.8 fL (80.0-100.0); Mean Platelet Volume 9.4 fL (9.4-12.4); Monocytes # (auto) 0.94 K/uL (0.11-0.59); Monocytes % (auto) 9.9 %; Neutrophils # (auto) 6.75 K/uL (1.40-6.50); Neutrophils % (auto) 71.3 %; Platelet Count 347 K/uL (130-400); RDW Coefficient of Variation 11.9 % (11.5-14.5); RDW Standard Deviation 41.2 fL (36.4-46.3); Red Blood Count 3.56 M/uL (4.20-5.40); White Blood Count 9.47 K/ul (4.8-10.8)
--- NOTE | 2023-01-02 07:35 | XRay Report ---
XR chest 1V portable HISTORY: recurrent falls COMPARISON: Chest 08/04/2020. FINDINGS: No pneumothorax. No pleural effusions. The heart is top normal in size. No focal lung conso lidations to suggest a pneumonia. No evidence for pulmonary edema. Advanced degenerative changes with in the shoulders. IMPRESSION: No acute process. ACT 112: Negative or not required by law. Electronically signed by: Evans Prakash M.D. 01/02/2023 7:33 AM
[2023-01-02 07:39] LABS: Albumin Globulin Ratio 1.8 (0.9-2); Albumin Level 3.9 gm/dl (3.4-5.0); BUN Creatinine Ratio 10.3 (10-20); Bilirubin,Total 0.5 mg/dl (0.2-1.0); Calcium 8.9 mg/dl (8.6-10.3); Creatinine Clr Calc Pharmacy 67.1 ml/min; Est GFR (African American) 97.1 ml/min; Est GFR (Non-African American) 83.8 ml/min; Globulin 2.2 gm/dl (2.5-4.0); Potassium 3.6 mmol/L (3.5-5.1); Total Protein 6.1 gm/dl (6.0-8.3)
[2023-01-02] MEDS: ESCITALOPRAM OXALATE 10 MG TAB PO SCH (08:08)
[2023-01-02] MEDS: CHOLECALCIFEROL 1,000 UNITS 25 MCG TAB PO SCH (08:08)
[2023-01-02] MEDS: CEROVITE ADV FORMULA TAB PO SCH (08:08)
[2023-01-02] MEDS: DOCUSATE SODIUM 100 MG CAP PO SCH (08:08)
[2023-01-02] MEDS: MIRABEGRON ER 25 MG TAB PO SCH (08:08)
[2023-01-02] MEDS: ENOXAPARIN INJ 30 MG/0.3 ML SYR SQ SCH (08:08)
[2023-01-02] MEDS: MULTIVITAMIN TAB PO SCH (08:09)
[2023-01-02] MEDS ORDERED: NON-FORMULARY MEDICATION (Prevagen 1 TAB) PO SCH (09:00)
--- NOTE | 2023-01-02 12:52 | Hospitalist Progress Note ---
Date of Service January 02, 2023 Assessment & Plan (1) Ambulatory dysfunction: Plan: I spoke with Dr Lu from [facility]. He reports having seen Ms Blaine several years ago and at that time had had some ataxia and difficulty walking but it was mild. I then spoke with the pt's daughter who confirms her mother has had a precipitous drop-off in her ability to walk over the last 2-3 weeks. When she moved to [place] from [place] she was using a walker; now she is using a wheelchair and she has had frequent falls. Dr Lu commented that during a recent office evaluation she had a "magnetic" type gait concerning for NPH. MRI brain overnight without acute or chronic stroke, tumor, ICH, etc. Ventricles are prominent but not classic ventriculomegaly as typically seen with NPH. Additional w/u - lyme titer, B12, CPK, sed rate, CRP, etc - negative or normal. TSH is mildly elevated but certainly not high enough to explain her presentation. May have UTI but again would not explain fully her presentation. Lumbar spine CT with DJD but no significant stenosis to explain leg symptoms. Due to falls and c/o neck & back pain will obtain CT c-spine and CT t-spine to rule out subacute fractures. Dr Lu advises consideration of diagnostic/therapeutic high-volume lumbar puncture that, if her gait disturbance/walking/etc improve post-LP, would be supportive of dx of NPH. Plan - * hold lovenox in the event LP is pursued * formal consult with [facility] tomorrow am * fall precautions * c-spine and t-spine CTs, as noted above * treat UTI (2) Recurrent falls: Plan: 2nd to #1 above. Low sodium, UTI could contribute to global weakness enhancing her fall risk as well. Will need PT/OT. See #1 above. (3) Low back pain: Plan: Lumbar spine CT without acute fracture, spinal stenosis, etc. Does have mild c-spine pain and t-spine pain -- thus, obtain urgent CTs of both regions. r/o subacute fractures, etc. Tylenol prn pain in meantime. (4) Urinary incontinence: Plan: Acute/subacute per daughter. Is growing a GNR in her urine; UTI could be contributing. Certainly if she has NPH this could be the culprit as well. Treat the UTI with rocephin and follow symptoms. Could consider purewick external catheter if needed. See work-up as delineated in #1 above. Cont mirabegron for overactive bladder paying close attention for development of urinary retention. (5) Acute metabolic encephalopathy: Plan: Suspect multi-factorial. Hyponatremia, UTI could be contributing. ?NPH, if present, could be contributing. Other factors may be possible. Lyme, B12 normal. Minimal elevation in TSH - doubt contributing. Send B1 level in am to be complete. Supportive care. Avoid benzos/sedatives if possible. (6) UTI (urinary tract infection): Plan: 2nd GNR. Cannot exclude that low-grade UTI is contributing to presentation. Thus, will err on side of caution and Rx with rocephin 2gm daily. Follow culture. (7) Hypothyroidism: Plan: TSH minimally elevated. Given recent difficulties with memory & cognition I would suspect that she has missed multiple doses. Would defer on changing her dose at this time. Cont synthroid, and simply repeat a TSH in 4-6 weeks. (8) Acute hyponatremia: Plan: 2nd to poor oral intake? has corrected with isotonic fluid overnight. of note - is not on diuretic therapy at home. repeat BMP am. (9) Heart murmur: Plan: echo noted. no significant valvular disease. suspect murmur is outflow tract murmur. no Rx needed. (10) Anxiety: Plan: cont SSRI. (11) DVT prophylaxis: Plan: lovenox - but hold tomorrow AM dose in the event LP is performed on 01/03. (12) Proximal weakness of extremity: Plan: I do not think she has typical proximal muscle weakness that would suggest a primary muscle disorder. Her b/l arm weakness (shoulders - right worse than left) is likely more so from shoulder issues (OA) than true muscle disease. CPK wnl. Inflammatory markers wnl. Cont to monitor this carefully. Plan [facility] outpatient records reviewed. Care d/w Dr Mekhi Lu, [facility], extensively by phone. Extensive update and phone conversation had with pt's daughter this evening. Care d/w radiology; we specifically discussed the ability to obtain high-volume LP, if deemed necessary by consulting neurologist tomorrow. Very complex care coordination. total care time activities today -- 90 minutes Admission and Anticipated Discharge Date Admission Date: January 02, 2023 Subjective tele overnight wnl during the visit the patient was resting comfortably in bed she had just finished eating lunch and she appeared to have eaten the majority of her meal she was confused, mixing up historical events and a timeline of her symptoms she thought she was "in a wing of [facility]" and thought it was Friday did know the year was 2022 she could not tell me when she had moved from [place] to the [facility] (per daughter she & moved into [facility] in [place] in late November 2022) she was surprisingly able to recall a recent office visit with Dr Cedeño with [facility] she had seen him because of difficulty walking she remembers falling at some point but couldn't recall the details of this either Review of Systems Review of Systems: gen - no fevers, good appetite neuro - no headache; difficulty walking (previously using a walker, then became wheelchair dependent last 2-3 weeks - shortly after moving into [facility]); denies paresthesias cv - no chest pain pulm - no dyspnea, no cough GI - no abd pain, nausea, emesis - denies dysuria HENT - no sore throat or congestion but feels like she is "Getting a cold" skin - rashes around both elbows stating "I have them from my falls" musculo - c/o b/l shoulder pain, R>L; c/o neck pain; c/o mid back pain; she reports difficulty raising both arms and difficulty lifting both legs - worse on right Physical Exam Physical Exam: gen - NAD, nontoxic, confused eyes - pinpoint pupils b/l but reactive; no nystagmus; EOMI mouth - MMM, no lesions neck - minimal tenderness to palpation at base of neck posteriorly heart - RRR, s1 s2, 1/6 YENNY LSB lungs - CTA b/l abd - soft NT ND BS+ skin - erythematous patches antecubital regions b/l elbows; no other rash or lesions ext - no edema, pulses feet 2+ b/l musculo - OA of b/l shoulders with restricted ROM, R>L; OA changes of small joints of fingers; no synovitis of any small or large joint upper/lower body neuro - biceps, triceps, brachioradialis, and patellar reflexes 2+ b/l; no ankle clonus; difficulty raising both arms above level of shoulders but restriction may be 2nd to OA of shoulders; handgrips 5/5 b/l; flexion L hip 5/5; flexion R hip 4/5; ankle dorsiflexion/plantarflexion 5/5 b/l; no tremors; gait not tested psych - oriented to person, partially the place, partially the time; confused and difficulty with recall of recent events Results & Data Results & Data Vital Signs (Past 12 Hours) Vital Signs Temp Pulse Pulse Resp BP BP Pulse Ox 01/02/23 11:29 36.3 C L 79 16 163/64 H 96 01/02/23 08:00 73 01/02/23 04:38 36.8 C 102 H 16 174/81 H 94 01/02/23 04:00 88 14 91 01/02/23 03:30 94 H 21 93 01/02/23 03:02 106 H 15 01/02/23 02:30 105 H 16 01/02/23 02:00 85 14 01/02/23 01:30 86 15 01/02/23 01:13 91 H 01/02/23 01:01 97 H 25 H 97 01/02/23 01:01 158/89 H 01/02/23 01:00 91 H 16 97 01/02/23 00:57 97 O2 Del Method 01/02/23 11:29 Room Air 01/02/23 08:00 01/02/23 04:38 Room Air 01/02/23 04:00 01/02/23 03:30 01/02/23 03:02 01/02/23 02:30 01/02/23 02:00 01/02/23 01:30 01/02/23 01:13 01/02/23 01:01 01/02/23 01:01 01/02/23 01:00 01/02/23 00:57 Laboratory Results Laboratory Results - last 24 hr 01/02/23 01/02/23 01/02/23 05:08 06:14 06:14 WBC 9.47 RBC 3.56 L Hgb 11.4 L Hct 33.4 L MCV 93.8 MCH 32.0 MCHC 34.1 RDW Std Deviation 41.2 RDW Coeff of Sandra 11.9 Plt Count 347 MPV 9.4 Immature Gran % (Auto) 0.6 Neut % (Auto) 71.3 Lymph % (Auto) 16.4 [place] % (Auto) 9.9 Eos % (Auto) 1.5 Baso % (Auto) 0.3 Neut # (Auto) 6.75 H Lymph # (Auto) 1.55 [place] # (Auto) 0.94 H Eos # (Auto) 0.14 Baso # (Auto) 0.03 Immature Gran # (Auto) 0.06 ESR Sodium 136 Potassium 3.6 Chloride 101 Carbon Dioxide 27 Anion Gap 8 BUN 7 Creatinine 0.68 Est Cr Clr Drug Dosing 67.1 Est GFR ( Amer) 97.1 Est GFR (Non-Af Amer) 83.8 BUN/Creatinine Ratio 10.3 Glucose 98 Calcium 8.9 Magnesium 2.0 Total Bilirubin 0.5 AST 21 ALT 8 Alkaline Phosphatase 125 H Ammonia Total Creatine Kinase C-Reactive Protein Total Protein 6.1 Albumin 3.9 Globulin 2.2 L Albumin/Globulin Ratio 1.8 Vitamin B12 Folate TSH Nasal Screen MRSA (PCR) Negative Lyme Disease IgG Ab Lyme Disease IgM Ab 01/02/23 01/02/23 01/02/23 13:09 13:09 13:09 WBC RBC Hgb Hct MCV MCH MCHC RDW Std Deviation RDW Coeff of Sandra Plt Count MPV Immature Gran % (Auto) Neut % (Auto) Lymph % (Auto) [place] % (Auto) Eos % (Auto) Baso % (Auto) Neut # (Auto) Lymph # (Auto) [place] # (Auto) Eos # (Auto) Baso # (Auto) Immature Gran # (Auto) ESR 9 Sodium Potassium Chloride Carbon Dioxide Anion Gap BUN Creatinine Est Cr Clr Drug Dosing Est GFR ( Amer) Est GFR (Non-Af Amer) BUN/Creatinine Ratio Glucose Calcium Magnesium Total Bilirubin AST ALT Alkaline Phosphatase Ammonia Total Creatine Kinase 91 C-Reactive Protein < 0.50 Total Protein Albumin Globulin Albumin/Globulin Ratio Vitamin B12 838 Folate > 22.30 TSH Nasal Screen MRSA (PCR) Lyme Disease IgG Ab Lyme Disease IgM Ab 01/02/23 01/02/23 01/02/23 13:09 13:09 13:20 WBC RBC Hgb Hct MCV MCH MCHC RDW Std Deviation RDW Coeff of Sandra Plt Count MPV Immature Gran % (Auto) Neut % (Auto) Lymph % (Auto) [place] % (Auto) Eos % (Auto) Baso % (Auto) Neut # (Auto) Lymph # (Auto) [place] # (Auto) Eos # (Auto) Baso # (Auto) Immature Gran # (Auto) ESR Sodium Potassium Chloride Carbon Dioxide Anion Gap BUN Creatinine Est Cr Clr Drug Dosing Est GFR ( Amer) Est GFR (Non-Af Amer) BUN/Creatinine Ratio Glucose Calcium Magnesium Total Bilirubin AST ALT Alkaline Phosphatase Ammonia 35.0 Total Creatine Kinase C-Reactive Protein Total Protein Albumin Globulin Albumin/Globulin Ratio Vitamin B12 Folate TSH 6.196 H Nasal Screen MRSA (PCR) Lyme Disease IgG Ab Negative Lyme Disease IgM Ab Negative Diagnostic Findings Chest X-Ray 01/01/23 21:08 XR chest 1V portable HISTORY: recurrent falls COMPARISON: Chest 08/04/2020. FINDINGS: No pneumothorax. No pleural effusions. The heart is top normal in size. No focal lung consolidations to suggest a pneumonia. No evidence for pulmonary edema. Advanced degenerative changes within the shoulders. IMPRESSION: No acute process. ACT 112: Negative or not required by law. Electronically signed by: Evans Prakash M.D. 01/02/2023 7:[address] 01/01/23 21:08 Exam(s): CT HEAD Without Contrast EXAM: CT Head Without Intravenous Contrast CLINICAL HISTORY: Reason for exam: fall from standing; head injury. TECHNIQUE: Axial computed tomography images of the head/brain without intravenous contrast. Automated exposure control was utilized for the study. A dose lowering technique was utilized adhering to the principles of ALARA. COMPARISON: No relevant prior studies available. FINDINGS: No acute intracranial hemorrhage. No midline shift or mass effect. The territorial roth-white matter differentiation is maintained throughout. Age-related cerebral volume loss. Periventricular and subcortical white matter hypoattenuation, consistent with chronic microangiopathy. The visualized orbits appear grossly unremarkable. The calvarium is intact. The visualized paranasal sinuses and mastoid air cells are grossly clear. IMPRESSION: No acute intracranial hemorrhage, midline shift, or mass effect. Electronically signed by: Delfin Deckre MD 01/01/23 22:[address] 01/01/23 21:08 Exam(s): CT L SPINE EXAM: CT Lumbar Spine Without Intravenous Contrast CLINICAL HISTORY: Reason for exam: low back pain s/p fall from standing. TECHNIQUE: Axial computed tomography images of the lumbar spine without intravenous contrast. CTDI is 24.54 mGy and DLP is 740.29 mGy-cm. Automated exposure control was utilized for the study. A dose lowering technique was utilized adhering to the principles of ALARA. COMPARISON: No relevant prior studies available. FINDINGS: The vertebral body heights are maintained. The lumbar lordosis is preserved. There is no spondylolisthesis. The posterior elements are maintained, without evidence of acute fracture. The pedicles are intact. Multilevel lumbar spondylosis and degenerative disc disease. Osseous demineralization. IMPRESSION: No acute fracture or subluxation of the lumbar spine. Electronically signed by: Delfin Decker MD 01/01/23 22:33 PM Brain MRI 01/01/23 23:19 Exam(s): MRI HEAD Without Contrast EXAM: MR Head Without Intravenous Contrast CLINICAL HISTORY: Reason for exam: altered mentation, imbalance, urinary incontinence. TECHNIQUE: Magnetic resonance images of the head/brain without intravenous contrast in multiple planes. COMPARISON: No relevant prior studies available. FINDINGS: No acute territorial infarct. No acute intracranial hemorrhage. No midline shift or mass effect. Age-related cerebral volume loss. Periventricular and subcortical white matter T2 signal intensity, consistent with chronic microangiopathy. The visualized orbits appear grossly unremarkable. The calvarium is intact. The visualized paranasal sinuses and mastoid air cells are grossly clear. IMPRESSION: No acute territorial infarct. No acute intracranial hemorrhage. No midline shift or mass effect. Images are degraded by motion artifact. Electronically signed by: Delfin Decker MD 01/02/23 00:45 AM PG Care Time/CCT Total # of Minutes Spent Total Time Spent with Patient: Total time spent is greater than 50% in coordination of care (as documented) at patient's floor/unit and/or counseling patient: Prolonged Care Time Prolonged Care Time: Yes Total Prolonged Care Time: 90 Coding Level of Care Code 09216 SUB INP/OBS CARE 3/50MIN (25 - SIGNIFICANT, SEPARATELY IDENTIFIABLE ) Diagnoses Ambulatory dysfunction R26.2 Recurrent falls R29.6 Low back pain M54.50 Urinary incontinence R32 Acute metabolic encephalopathy G93.41 UTI (urinary tract infection) N39.0 Hypothyroidism E03.9 Acute hyponatremia E87.1 Heart murmur R01.1 Anxiety F41.9 DVT prophylaxis Z29.9 Proximal weakness of extremity M62.89 Additional Codes Prolonged Care Time - Prolonged Care Time: Yes ([id number])
[2023-01-02 14:34] LABS: C Reactive Protein < 0.50 mg/dl (0-0.5); Creatine Kinase 91 U/L (26-192)
[2023-01-02 15:02] LABS: Vitamin B12 838 pg/ml (180-914)
[2023-01-02 15:19] LABS: Lyme Ab IgG w/WB Rflx Negative (Negative); Lyme Ab IgM w/WB Rflx Negative (Negative)
--- NOTE | 2023-01-02 16:38 | XCELERA ---
[id number]
[2023-01-03] MEDS: DOCUSATE SODIUM 100 MG CAP PO SCH ×3 (03:40→21:10)
[2023-01-03] MEDS: MELATONIN 3 MG TAB PO SCH ×2 (03:40→21:09)
[2023-01-03] MEDS: cefTRIAXone SODIUM 2,000 MG in DEXTROSE 5% 50 ML IV SCH (06:43)
[2023-01-03] MEDS: ACETAMINOPHEN 500 MG TAB PO PRN ×3 (06:46→22:26)
[2023-01-03] MEDS: LEVOTHYROXINE SODIUM 175 MCG TABLET PO SCH (06:47)
[2023-01-03 07:27] LABS: Hematocrit (blood only) 35.3 % (37.0-47.0); Hemoglobin 11.9 g/dl (12.0-16.0); Mean Corpuscular Hemoglobin 31.8 pg (25.0-34.0); Mean Corpuscular Hgb Conc 33.7 g/dL (32.0-36.0); Mean Corpuscular Volume 94.4 fL (80.0-100.0); Mean Platelet Volume 9.2 fL (9.4-12.4); Platelet Count 373 K/uL (130-400); RDW Coefficient of Variation 12.1 % (11.5-14.5); RDW Standard Deviation 42.4 fL (36.4-46.3); Red Blood Count 3.74 M/uL (4.20-5.40); White Blood Count 7.64 K/ul (4.8-10.8)
[2023-01-03 07:57] LABS: Prothrombin Time 10.7 Seconds (9.0-12.0)
[2023-01-03] MEDS: CEROVITE ADV FORMULA TAB PO SCH (08:11)
[2023-01-03] MEDS: ESCITALOPRAM OXALATE 10 MG TAB PO SCH (08:11)
[2023-01-03] MEDS: CHOLECALCIFEROL 1,000 UNITS 25 MCG TAB PO SCH (08:11)
[2023-01-03] MEDS: MIRABEGRON ER 25 MG TAB PO SCH (08:11)
[2023-01-03] MEDS: MULTIVITAMIN TAB PO SCH (08:11)
[2023-01-03] MEDS: THIAMINE HCL 100 MG TAB PO SCH ×2 (10:11→21:09)
--- NOTE | 2023-01-03 11:53 | CT Scan Report ---
CT SCAN OF THE CERVICAL SPINE CLINICAL HISTORY: Recent falls. COMPARISON STUDY: No priors. TECHNIQUE: CT scan of the cervical spine is performed from the skull base to the upper thoracic spine . Images are reviewed in the axial, sagittal, and coronal planes. IV contrast was not administered fo r this examination. A dose lowering technique was utilized adhering to the principles of ALARA. CT DOSE: 1380.13 mGy.cm FINDINGS: Skeletal structures: The skeletal structures are osteopenic. There is no evidence of fracture or subl uxation involving the cervical spine. Vertebral body height and alignment are maintained. Tiny anter ior osteophytes are seen throughout. The odontoid process and lateral masses are intact. The atlantoa xial articulation is preserved nothing productive degenerative change. The spinous processes appear i ntact. There is mild multilevel facet arthropathy. Intervertebral discs: There is moderate to severe disc space narrowing at C5-C6 and C6-C7. Mild narro wing is seen at the remaining cervical levels. Central canal: Tiny posterior disc osteophyte complexes at C5-C6 and C6-C7 may contribute to mild acq uired compromise of the central canal. Soft tissues: The prevertebral and paraspinous soft tissues are within normal limits. There is athero sclerotic calcification of the carotid bulbs. A calcified sialolith is noted in the left parotid glan d. Calvarium: The visualized calvarium at the skull base appears intact. Brain parenchyma: Partially visualized brain parenchyma at the skull base is within normal limits. Sinuses and mastoids: The visualized paranasal sinuses are clear. There is a left mastoid effusion. T he right mastoid air cells are well pneumatized. Lung apices: Clear as visualized. IMPRESSION: 1. There is no evidence of fracture or subluxation involving the cervical spine. 2. Osteopenia and spondylotic change as above. ACT 112: Negative or not required by law. Electronically signed by: Brandon Cespedes M.D. 01/03/2023 11:52 AM
--- NOTE | 2023-01-03 11:58 | Neurology Consultation ---
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 Her recent rapid decline however is likely due to her UTI. planning for LP for CSF removable to see if pt improves. Recommendations: LP as planned. continue tx for UTI. if pt showing good improvement in her gait after LP, consult neurosurgery for potential shunt placement. Dr. Kishore Wheatley MD [facility] Chief Complaint: confusion History of Present Illness: pt this morning doing well, eating breakfast and talking well. able to to have good conversation. pt with UTI and asked to eval for NPH. chart reviewed. Admission/Initial HPI documentation:The patient presents to the emergency department after a series of falls. Her daughter reports a significant decline in her mental acuity, and ability to take care of herself over the past 2 weeks. She had initially been walking with a cane, more recently changed to a walker, and then over the past 2 days has been in a wheelchair. She had been seen by a local neurologist who had question the possibility of NPH and had a CT scan scheduled for next week. Primary Care Provider: Marshall Zavala DO The patient is a 77-year-old female with a past medical history including osteoarthritis, depression, hypothyroidism, insomnia, bladder spasms, urinary leakage and constipation. She is brought to the emergency department by family due to concerns regarding relatively rapid progression of declining function both physically and mentally over the past 2 weeks, and particularly over the past 2 days has transition from walking with a cane to walking with a walker and now being in a wheelchair. The patient is not able to contribute significantly to HPI or review of systems. Work-up in the emergency department included imaging: CT scan of head and lumbar spine were normal, and chest x-ray was normal. Significant laboratories: WBC 14.33, sodium 128 and glucose 107 Past Medical History: See chart Meds: See chart I personally reviewed all of the medications Social & Family History: See chart Review of Systems: Per initial HPI on admission. Physical Exam: GEN: NAD HEENT: Normocephalic Neuro: Mental status:A & O x 3.able to tell me ircky, year, location of hospital, president. No dysarthria or aphasia.No neglect. Fluent speech. No apraxia Cranial Nerves:II-XII intact Motor:Normal bulk and tone,5-/5 strength x 4 extremities Coordination:Intact FTN testing Reflexes:+2 throughout, down going toes morena Sensation: Intact x 4 extremities to touch Gait:deferred as pt eating breakfast. Chart reviewed I have spent more than 50% educating patient about potential diagnosis and neurological evaluation and coordinating care with patient's treatment team. Total time spent (including chart review and coordination of care): 80 min (this includes chart review). History of Present Illness Attending Physician: Mika Burciaga Allergies Allergy/AdvReac Type Severity Reaction Status Date / Time No Known Allergies Allergy Mild 0 Verified 01/01/23 22:17 Home Medications Medication Instructions Recorded Confirmed Type Prevagen 1 tab PO DAILY 01/01/23 01/01/23 History acetaminophen 500 mg tablet 500 mg PO Q6H PRN Fever Or Pain 01/01/23 01/01/23 History (Tylenol Extra Strength) calcium carbonate 400 mg calcium 800 mg PO DIRECTED PRN 01/01/23 01/01/23 History (1,000 mg) chewable tablet .heartburn cholecalciferol (vitamin D3) 50 50 mcg PO DAILY 01/01/23 01/01/23 History mcg (2,000 unit) tablet (Vitamin D3) clotrimazole 1 % topical cream 1 applic topical BID 01/01/23 01/01/23 History diclofenac sodium 1 % topical gel 2 g topical QID 01/01/23 01/01/23 History docusate sodium 100 mg capsule 100 mg PO BID 01/01/23 01/01/23 History escitalopram oxalate 10 mg tablet 10 mg PO DAILY 01/01/23 01/01/23 History ibuprofen 200 mg tablet 400 mg PO Q6H PRN Pain 01/01/23 01/01/23 History levothyroxine 175 mcg tablet 175 mcg PO DAILY 01/01/23 01/01/23 History melatonin 10 mg tablet 10 mg PO HS 01/01/23 01/01/23 History mirabegron 50 mg tablet,extended 50 mg PO DAILY 01/01/23 01/01/23 History release 24 hr (Myrbetriq) multivitamin 1 tab PO DAILY 01/01/23 01/01/23 History naproxen sodium 220 mg tablet 440 mg PO BID PRN Pain 01/01/23 01/01/23 History vit C 250 mg-vit E 90 mg-zinc 40 1 tab PO BID 01/01/23 01/01/23 History mg-copper 1 [id number] capsule (PreserVision AREDS-2) Patient History Medical History (Updated 01/03/23 @ 04:30 by Mika Burciaga) Anxiety Balance problem Dry eye syndrome Glaucoma Hypothyroidism Memory problem Osteoarthritis Overactive bladder Urinary incontinence Surgical History (Updated 12/09/20 @ 10:23 by Zoran Chandler) History of ankle surgery Left History of cataract surgery RT/LEFT History of colonoscopy History of hysterectomy with unilateral oophorectomy History of right hip replacement History of wisdom tooth extraction Family History Other No family history of adverse response to anesthesia Social History Smoking Status: Former smoker Second Hand Exposure: No; Do You Dip or Chew Tobacco: No; Tobacco Cessation Education Requested by Patient: No Hx Alcohol Use: No Hx Substance Use: No Preferred Language: Lithuanian Communication Ability: Impaired Toucher Up Required: No Beliefs That Will Affect Care: None marital status: Current Living Situation: Spouse Current Living Situation Comment: was at [facility] for about a month left friday Other Information That Helps Us Care for You: Yes (would like to be at home with home health) Feels Safe at Home: Yes and No Is there a partner from a previous relationship who is making you feel unsafe now?: No Any Concerns about Your Family Situation: No Would You Like to Speak to Someone About Your Situation: No Safety Concerns: Feels Safe At This Time Assistive Devices: Denture - Upper, Glasses, Walker and Wheelchair Results & Data Vital Signs (Past 12 Hours) Vital Signs Temp Pulse Pulse Resp BP Pulse Ox O2 Del Method 01/03/23 11:30 36.4 C L 83 18 167/87 H 96 Room Air 01/03/23 09:05 58 L 01/03/23 07:54 36.8 C 87 18 163/76 H 96 Room Air 01/03/23 00:00 98 H 01/03/23 04:00 36.5 C 94 H 16 146/77 H 96 Room Air
[2023-01-03] MEDS ORDERED: LORazepam 0.5 MG TAB PO ONE (12:02)
--- NOTE | 2023-01-03 12:06 | CT Scan Report ---
CT OF THE THORACIC SPINE CLINICAL HISTORY: recent falls, difficulty walking, back pain COMPARISON STUDY: Chest radiograph August 04, 2020. TECHNIQUE: Helical axial images of the thoracic spine were obtained. Sagittal and coronal reconstru ctions were viewed. Automated exposure control was utilized for the study. A dose lowering techniqu e was utilized adhering to the principles of ALARA. FINDINGS: Alignment of the thoracic spine is anatomic. Vertebral body heights are maintained. No acut e thoracic spine fracture is present. There are no osseous lesions within the thoracic spine. Moderat e multilevel degenerative disc disease within the thoracic spine is present. The central canal and ne ural foramen are suboptimally assessed given CT technique. Note is made of acute appearing minimally displaced fractures of the posterior right seventh, eighth and ninth ribs. Trace right pleural effusi on is noted. No pneumothorax is shown within visualized portions of the chest. IMPRESSION: 1. No acute thoracic spine fracture or subluxation. 2. Acute appearing minimally displaced fractures of the posterior right seventh through ninth ribs. T race right pleural effusion. ACT 112: Negative or not required by law. Electronically signed by: Eliud Chakraborty M.D. 01/03/2023 12:04 PM
--- NOTE | 2023-01-03 14:56 | Fluoroscopy Report ---
Lumbar puncture under fluoroscopy INDICATION: Normal pressure hydrocephalus PROCEDURE: Procedure and risks were explained. Informed consent was obtained from the patient's daugh ter. A final timeout was completed. The patient was placed prone on the fluoroscopic exam table. The lower lumbar region was prepped and draped in sterile fashion. 1% lidocaine was utilized for skin ane sthesia. Utilizing fluoroscopic guidance, a 22-gauge needle was advanced into the intrathecal space at the L3- 4 disc space level. Spot image was obtained. Opening pressure was measured at 16.5 cm H2O. Approximat horacio 30 mL of clear CSF fluid was removed and 15 mL of CSF fluid was sent to lab for analysis. The nee dle was removed and Band-Aid applied. The patient tolerated the procedure well. Vital signs will be m onitored on the floor post procedure. Total fluoroscopy time 0.3 minutes. DAP is 18.86 mcGy/m2. IMPRESSION: Lumbar puncture as above. Performed, dictated, and signed by Will Ellis PA-C; to be co-signed by Dr. Eliud Chakraborty. Electronically signed by: Eliud Chakraborty M.D. 01/03/2023 6:11 PM
[2023-01-03 15:15] LABS: Total Protein CSF 35.1 mg/dl (15-45)
[2023-01-03 16:13] LABS: Appearance CSF Clear; CSF Count Tube # 4; CSF Xanthrochromic No xanthochromia; Color CSF Colorless
[2023-01-03] MEDS ORDERED: OLANZapine ZYDIS 5 MG ORALLY DIS. TAB PO STA (18:01)
--- NOTE | 2023-01-03 19:15 | Electrocardiogram Report ---
Test Reason : Blood Pressure : / mmHG Vent. Rate : 089 BPM Atrial Rate : 089 BPM P-R Int : 148 ms QRS Dur : 076 ms QT Int : 366 ms P-R-T Axes : 058 -03 019 degrees QTc Int : 445 ms Poor data quality, interpretation may be adversely affected Normal sinus rhythm Possible Left atrial enlargement Left ventricular hypertrophy Abnormal ECG When compared with ECG of 04-AUG-2020 11:11, Vent. rate has increased BY 32 BPM T wave inversion now evident in Inferior leads QT has lengthened Confirmed by Palmer Lombardi ([id number]) on 01/03/2023 7:15:42 PM Referred By: REFERRED SELF Confirmed By:Palmer Lombardi
[2023-01-03] MEDS ORDERED: OLANZapine ZYDIS 5 MG ORALLY DIS. TAB PO PRN (20:00)
--- NOTE | 2023-01-03 22:18 | Hospitalist Progress Note ---
Date of Service January 03, 2023 Assessment & Plan (1) Ambulatory dysfunction: Plan: likely due to NPH (see below) in the setting of acute UTI. MRI brain, CTs of the neck/t-spine/l-spine, numerous labs, etc do not give an alternative explanation for her symptoms. she had improvement s/p large volume LP today in her gait/walking (also see below). cont PT/OT. (2) NPH (normal pressure hydrocephalus): Plan: highly suspected based on clinical features (ataxia/ambulatory dysfunction, rapid onset of mental status changes, urinary incontinence, etc), imaging, and response to large volume LP today. appreciate IR; appreciate PT; appreciate neurology consultations. cell counts from LP completely normal. opening pressure 16 (wnl). following the LP Clint Peña from PT documented the following -- Daughter was present for the pre-LP physical therapy eval and the post-LP evaluation and she, too, felt there was a fairly dramatic difference in her mother's walking ability. patient will need non-emergent neurosurgery evaluation for consideration of PRESS CATCHER shunt. discussed this with her daughter in detail by phone. daughter aware that improvement in gait/walking will be temporary since the body will ultimately replace the CSF removed and symptoms will reoccur. will d/w neurology in am about neurosurgery referral. cont PT/OT cont fall precautions will need rehab post-d/c treat UTI (3) UTI (urinary tract infection): Plan: 2nd pansens e.coli. Suspect that her UTI is contributing to her mental status changes and probably the urinary incontinence as well. Cont rocephin 2gm daily. Change to oral abx tomorrow. (4) Recurrent falls: Plan: 2nd to #1 / #2. Low sodium, UTI could have contributed to global weakness enhancing her fall risk as well. PT/OT. See above. (5) Low back pain: Plan: Lumbar spine CT without acute fracture, spinal stenosis, etc. Obtained CTs of c-spine and t-spine as well - no spinal fractures. Treat symptoms. (6) Urinary incontinence: Plan: Acute/subacute per daughter. 2nd to UTI in the setting of suspected NPH as above. Hopefully there will be some improvement with Rx of UTI. (7) Acute metabolic encephalopathy: Plan: Suspect multi-factorial. Hyponatremia, UTI, and suspected NPH Lyme, B12 normal. Minimal elevation in TSH - doubt contributing. Sent B1 level - place on empiric thiamine while awaiting level. Post-LP she had worsening mentation likely due to ativan use that was given for the lumbar puncture. Start zyprexa 2.5mg prn. (8) Hypothyroidism: Plan: TSH minimally elevated. Given recent difficulties with memory & cognition I would suspect that she has missed multiple doses. Would defer on changing her dose at this time. Cont synthroid, and simply repeat a TSH in 4-6 weeks. (9) Acute hyponatremia: Plan: 2nd to poor oral intake? has corrected with isotonic fluid. Na 128 at admission; most recent Na level 136. check BMP am. (10) Heart murmur: Plan: echo noted. no significant valvular disease. suspect murmur is outflow tract murmur. no Rx needed. (11) Anxiety: Plan: cont SSRI. (12) DVT prophylaxis: Plan: hold lovenox now and for at least 24 hours post-LP. (13) Proximal weakness of extremity: Plan: I do not think she has typical proximal muscle weakness that would suggest a primary muscle disorder. Her b/l arm weakness (shoulders - right worse than left) is likely more so from shoulder issues (OA) than true muscle disease. CPK wnl. Inflammatory markers wnl. Cont to monitor this carefully. Plan extensive care coordination today with radiology, neurology, physical therapy, and her daughter numerous calls & correspondences with the above consultants especially complex coordination of her LP total care time today again prolonged, nearly 80 minutes Admission and Anticipated Discharge Date Admission Date: January 02, 2023 Subjective patient initially was refusing c-spine and t-spine CTs but I spoke with the pt's daughter and her daughter encouraged her mother to have these completed they were indeed completed - fortunately no spinal fractures, but she does have posterior right seventh, eighth and ninth rib fractures. she does state that her back hurts over the location of these broken ribs. in addition to the above she had been refusing LP but her daughter also talked her through this and ultimately she was agreeable physical therapy worked with her prior to the LP - gait indeed was very magnetic with inability to truly lift the feet off the floor in a usual fashion while attempting to walk by report the patient has had ongoing confusion and was mildly confused during the visit daughter was at bedside during the visit tele overnight wnl - NSR Review of Systems Review of Systems: cv - no chest pain pulm - no dyspnea GI - no pain musculo - back pain especially on right Physical Exam Physical Exam: gen - NAD, still mildly confused mouth - MMM, no lesions heart - RRR, s1 s2, 1/6 YENNY LSB lungs - CTA b/l abd - soft NT ND BS+ ext - no edema, pulses feet 2+ b/l neuro - handgrips 5/5 b/l; flexion L hip 5/5; flexion R hip 4-5/5; ankle dorsiflexion/plantarflexion 5/5 b/l; no tremors; gait magnetic, very slow, and unsteady psych - oriented to person, place Results & Data Results & Data Vital Signs (Past 12 Hours) Vital Signs Temp Pulse Resp BP Pulse Ox O2 Del Method 01/03/23 19:22 36.7 C 100 H 19 184/87 H 96 Room Air 01/03/23 15:05 36.4 C L 71 18 153/64 H 97 Room Air 01/03/23 11:30 36.4 C L 83 18 167/87 H 96 Room Air Laboratory Results Laboratory Results - last 24 hr 01/03/23 01/03/23 01/03/23 06:58 06:58 06:58 WBC 7.64 RBC 3.74 L Hgb 11.9 L Hct 35.3 L MCV 94.4 MCH 31.8 MCHC 33.7 RDW Std Deviation 42.4 RDW Coeff of Sandra 12.1 Plt Count 373 MPV 9.2 L PT 10.7 INR 1.0 Vitamin B1 Pending Fluid Comment CSF Appearance CSF Color Xanthrochromic CSF WBC CSF RBC CSF Cell Count Tube # CSF Chemistry Tube # CSF Glucose CSF Total Protein 01/03/23 01/03/23 14:17 14:17 WBC RBC Hgb Hct MCV MCH MCHC RDW Std Deviation RDW Coeff of Sandra Plt Count MPV PT INR Vitamin B1 Fluid Comment CSF Appearance Clear CSF Color Colorless Xanthrochromic No xanthochromia CSF WBC 0 CSF RBC 0 CSF Cell Count Tube # 4 CSF Chemistry Tube # 2 CSF Glucose 66 CSF Total Protein 35.1 Diagnostic Findings Cervical Spine CT 01/02/23 20:42 CT SCAN OF THE CERVICAL SPINE CLINICAL HISTORY: Recent falls. COMPARISON STUDY: No priors. TECHNIQUE: CT scan of the cervical spine is performed from the skull base to the upper thoracic spine. Images are reviewed in the axial, sagittal, and coronal planes. IV contrast was not administered for this examination. A dose lowering technique was utilized adhering to the principles of ALARA. CT DOSE: 1380.13 mGy.cm FINDINGS: Skeletal structures: The skeletal structures are osteopenic. There is no evidence of fracture or subluxation involving the cervical spine. Vertebral body height and alignment are maintained. Tiny anterior osteophytes are seen throughout. The odontoid process and lateral masses are intact. The atlantoaxial articulation is preserved nothing productive degenerative change. The spinous processes appear intact. There is mild multilevel facet arthropathy. Intervertebral discs: There is moderate to severe disc space narrowing at C5-C6 and C6-C7. Mild narrowing is seen at the remaining cervical levels. Central canal: Tiny posterior disc osteophyte complexes at C5-C6 and C6-C7 may contribute to mild acquired compromise of the central canal. Soft tissues: The prevertebral and paraspinous soft tissues are within normal limits. There is atherosclerotic calcification of the carotid bulbs. A calcified sialolith is noted in the left parotid gland. Calvarium: The visualized calvarium at the skull base appears intact. Brain parenchyma: Partially visualized brain parenchyma at the skull base is within normal limits. Sinuses and mastoids: The visualized paranasal sinuses are clear. There is a left mastoid effusion. The right mastoid air cells are well pneumatized. Lung apices: Clear as visualized. IMPRESSION: 1. There is no evidence of fracture or subluxation involving the cervical spine. 2. Osteopenia and spondylotic change as above. ACT 112: Negative or not required by law. Electronically signed by: Brandon Cespedes M.D. 01/03/2023 11:[address] 01/02/23 20:42 CT OF THE THORACIC SPINE CLINICAL HISTORY: recent falls, difficulty walking, back pain COMPARISON STUDY: Chest radiograph August 04, 2020. TECHNIQUE: Helical axial images of the thoracic spine were obtained. Sagittal and coronal reconstructions were viewed. Automated exposure control was utilize d for the study. A dose lowering technique was utilized adhering to the principles of ALARA. FINDINGS: Alignment of the thoracic spine is anatomic. Vertebral body heights are maintained. No acute thoracic spine fracture is present. There are no osseous lesions within the thoracic spine. Moderate multilevel degenerative disc disease within the thoracic spine is present. The central canal and neural foramen are suboptimally assessed given CT technique. Note is made of acute appearing minimally displaced fractures of the posterior right seventh, eighth and ninth ribs. Trace right pleural effusion is noted. No pneumothorax is shown within visualized portions of the chest. IMPRESSION: 1. No acute thoracic spine fracture or subluxation. 2. Acute appearing minimally displaced fractures of the posterior right seventh through ninth ribs. Trace right pleural effusion. ACT 112: Negative or not required by law. Electronically signed by: Eliud Chakraborty M.D. 01/03/2023 12:04 PM Lumbar Puncture Fluoroscopy 01/03/23 11:57 Lumbar puncture under fluoroscopy INDICATION: Normal pressure hydrocephalus PROCEDURE: Procedure and risks were explained. Informed consent was obtained from the patient's daughter. A final timeout was completed. The patient was placed prone on the fluoroscopic exam table. The lower lumbar region was prepped and draped in sterile fashion. 1% lidocaine was utilized for skin anesthesia. Utilizing fluoroscopic guidance, a 22-gauge needle was advanced into the intrathecal space at the L3-4 disc space level. Spot image was obtained. Opening pressure was measured at 16.5 cm H2O. Approximately 30 mL of clear CSF fluid was removed and 15 mL of CSF fluid was sent to lab for analysis. The needle was removed and Band-Aid applied. The patient tolerated the procedure well. Vital signs will be monitored on the floor post procedure. Total fluoroscopy time 0.3 minutes. DAP is 18.86 mcGy/m2. IMPRESSION: Lumbar puncture as above. Performed, dictated, and signed by Will Ellis PA-C; to be co-signed by Dr. Eliud Chakraborty. Electronically signed by: Eliud Chakraborty M.D. 01/03/2023 6:11 PM PG Care Time/CCT Total # of Minutes Spent Total Time Spent with Patient: Total time spent is greater than 50% in coordination of care (as documented) at patient's floor/unit and/or counseling patient: Prolonged Care Time Prolonged Care Time: Yes Total Prolonged Care Time: 80 Coding Level of Care Code 48632 SUB INP/OBS CARE 3/50MIN (25 - SIGNIFICANT, SEPARATELY IDENTIFIABLE ) Diagnoses Ambulatory dysfunction R26.2 NPH (normal pressure hydrocephalus) G91.2 UTI (urinary tract infection) N39.0 Recurrent falls R29.6 Low back pain M54.50 Urinary incontinence R32 Acute metabolic encephalopathy G93.41 Hypothyroidism E03.9 Acute hyponatremia E87.1 Heart murmur R01.1 Anxiety F41.9 DVT prophylaxis Z29.9 Proximal weakness of extremity M62.89 Additional Codes Prolonged Care Time - Prolonged Care Time: Yes ([id number])
[2023-01-04] MEDS: cefTRIAXone SODIUM 2,000 MG in DEXTROSE 5% 50 ML IV SCH (06:42)
[2023-01-04] MEDS: LEVOTHYROXINE SODIUM 175 MCG TABLET PO SCH (06:43)
[2023-01-04 07:06] LABS: BUN Creatinine Ratio 20.4 (10-20); Creatinine Clr Calc Pharmacy 46.5 ml/min; Est GFR (Non-African American) 55.3 ml/min; Potassium 4.4 mmol/L (3.5-5.1)
[2023-01-04] MEDS: THIAMINE HCL 100 MG TAB PO SCH ×2 (08:44→21:03)
[2023-01-04] MEDS: MULTIVITAMIN TAB PO SCH (08:44)
[2023-01-04] MEDS: MIRABEGRON ER 25 MG TAB PO SCH (08:45)
[2023-01-04] MEDS: CEROVITE ADV FORMULA TAB PO SCH (08:45)
[2023-01-04] MEDS: ESCITALOPRAM OXALATE 10 MG TAB PO SCH (08:45)
[2023-01-04] MEDS: CHOLECALCIFEROL 1,000 UNITS 25 MCG TAB PO SCH (08:45)
[2023-01-04] MEDS: DOCUSATE SODIUM 100 MG CAP PO SCH ×2 (08:45→21:03)
[2023-01-04] MEDS: ACETAMINOPHEN 500 MG TAB PO PRN (11:06)
--- NOTE | 2023-01-04 19:59 | Hospitalist Progress Note ---
Date of Service January 04, 2023 Assessment & Plan (1) Ambulatory dysfunction: Plan: due to suspected NPH (see #2 below) in the setting of acute UTI. MRI brain, CTs of the neck/t-spine/l-spine, numerous labs, etc do not give an alternative explanation for her symptoms. she had improvement s/p larg volume LP 01/03/23 in her gait/walking (see PT note below). cont PT/OT. treat UTI. awaiting B1 level - treat with empiric thiamine 200mg BID for now. (2) NPH (normal pressure hydrocephalus): Plan: initially seen by Dr Primo Lu at [facility] as outpatient just prior to admission. he felt the diagnosis of exclusion was NPH at this time it is highly suspected that she has NPH based on clinical features (ataxia/ambulatory dysfunction, rapid onset of mental status changes, urinary incontinence, etc), imaging, and response to large volume LP 01/03/23. appreciate IR; appreciate PT; appreciate neurology consultations. cell counts from LP completely normal. opening pressure 16 (wnl). following the LP Clint Peña from physical therapy documented the following -- Daughter was present for the pre-LP physical therapy eval and the post-LP evaluation and she, too, felt there was a fairly dramatic difference in her mother's walking ability. patient will need non-emergent neurosurgery evaluation for consideration of QUALITY ASSURANCE NURSE shunt. discussed this with her daughter yesterday and today. daughter aware that improvement in gait/walking will be temporary since the body will ultimately replace the CSF removed and symptoms will reoccur. cont PT/OT cont fall precautions will need rehab post-d/c treat UTI I spoke with [facility] and Dr Catie Craig at [facility] is known to perform QUALITY ASSURANCE NURSE shunt placement. another neurosurgeon that could potentially help is Dr Schofield at [facility]. will need to investigate a referral to one of these providers early this coming week. (3) UTI (urinary tract infection): Plan: 2nd pansens e.coli. Suspect that her UTI is contributing to her mental status changes and probably the urinary incontinence as well. s/p 2 doses of rocephin 2gm daily. Change to oral keflex 500mg BID and treat for 5 additional days. (4) Recurrent falls: Plan: 2nd to #1 / #2. Low sodium, UTI could have contributed to global weakness enhancing her fall risk as well. PT/OT. See above. (5) Low back pain: Plan: Lumbar spine CT without acute fracture, spinal stenosis, etc. Obtained CTs of c-spine and t-spine as well - no spinal fractures. Treat symptoms. (6) Urinary incontinence: Plan: Acute/subacute per daughter. 2nd to UTI in the setting of suspected NPH as above. Hopefully there will be some improvement with Rx of UTI. (7) Acute metabolic encephalopathy: Plan: Suspect multi-factorial. Hyponatremia, UTI, and suspected NPH Lyme, B12 normal. Minimal elevation in TSH - doubt contributing. Sent B1 level - placed on empiric thiamine while awaiting level. Post-LP she had worsening mentation likely due to ativan use that was given for sedation for the lumbar puncture. cont scheduled zyprexa 2.5mg HS for ongoing delirium. of note - patient's daughter reports that for some time even before patient moved from [place], [place] to [facility] in [place] there was mild cognitive issues but it was mild. The dramatic drop off in mentation was over the last few weeks. (8) Hypothyroidism: Plan: TSH minimally elevated. Given recent difficulties with memory & cognition I would suspect that she had missed multiple doses of late. Would defer on changing her dose at this time. Cont synthroid, and simply repeat a TSH in 4-6 weeks. (9) Acute hyponatremia: Plan: resolved. 2nd to poor oral intake preadmission? corrected with isotonic fluid. Na 128 at admission; most recent Na level 137. (10) Heart murmur: Plan: echo noted. no significant valvular disease. suspect murmur is outflow tract murmur. no Rx needed. (11) Anxiety: Plan: cont SSRI. (12) Proximal weakness of extremity: Plan: I do not think she has typical proximal muscle weakness that would suggest a primary muscle disorder. Her b/l arm weakness (shoulders - right worse than left) is likely more so from shoulder issues (OA) than true muscle disease. CPK wnl. Inflammatory markers wnl. Cont to monitor this carefully. try voltaren gel 4gm QID to right shoulder for pain (13) Rib fractures: Plan: posterior right seventh through ninth ribs 2nd to pre-admission fall (had fallen at least 4 times per daughter) lidoderm patches prn tylenol prn (14) DVT prophylaxis: Plan: hold lovenox today; resume on 01/05/23 Plan ok to d/c tele move to med/surg cont PT/OT likely to need rehab post d/c on Friday, 01/06 will begin to seek out neurosurgery consultation for possible NPH Admission and Anticipated Discharge Date Admission Date: January 02, 2023 Subjective tele overnight - NSR patient resting comfortably in bed during my visit daughter present at bedside patient today was able to tell me she was at [facility], that it was 2022, that it was Friday, and that we were in December she had very little recollection of the last 2-3 weeks during that time period she had moved from [place] to [facility] in [place] apparently her gait & walking have returned to pre-lumbar puncture levels (following her LP yesterday she had significant improvement in her walking / gait as nicely documented by Clint Peña, physical therapy) she is eating well has mild pain in right shoulder and right posterior back (location of rib fractures) pt and daughter ask questions about plan of care Review of Systems Review of Systems: gen - weak, but good appetite cv - no chest pain, no orthopnea pulm - no cough or dyspnea GI - no abd pain, nausea or emesis neuro - denies any postural headache Physical Exam Physical Exam: gen - NAD, still mildly confused - but improved from prior exams; much more oriented today (2 days ago she thought she was in [place]) mouth - MMM, no lesions eyes - pinpoint pupils but reactive b/l heart - RRR, s1 s2, 1/6 YENNY LSB lungs - CTA b/l abd - soft NT ND BS+ ext - no edema, pulses feet 2+ b/l neuro - handgrips 5/5 b/l; strength b/l hip flexion and ankle dorsiflexion/plantarflexion 5/5 psych - oriented to person, place, and time but still unable to recall any of the last 2-3 weeks Results & Data Results & Data Vital Signs (Past 12 Hours) Vital Signs Temp Pulse Pulse Resp BP Pulse Ox O2 Del Method 01/04/23 16:19 70 01/04/23 15:05 36.5 C 80 17 137/82 95 Room Air 01/04/23 11:18 78 01/04/23 11:01 36.6 C 89 20 164/83 H 94 Room Air Laboratory Results Laboratory Results - last 24 hr 01/04/23 05:54 Sodium 137 Potassium 4.4 D Chloride 101 Carbon Dioxide 28 Anion Gap 8 BUN 20 Creatinine 0.98 D Est Cr Clr Drug Dosing 46.5 Est GFR ( Amer) 64.0 Est GFR (Non-Af Amer) 55.3 BUN/Creatinine Ratio 20.4 H Glucose 108 H Calcium 9.0 Diagnostic Findings urine cx - pansens e.coli CSF culture negative PG Care Time/CCT Total # of Minutes Spent Total Time Spent with Patient: Total time spent is greater than 50% in coordination of care (as documented) at patient's floor/unit and/or counseling patient: Coding Level of Care Code 45300 SUB INP/OBS CARE 2/35MIN Diagnoses Ambulatory dysfunction R26.2 NPH (normal pressure hydrocephalus) G91.2 UTI (urinary tract infection) N39.0 Recurrent falls R29.6 Low back pain M54.50 Urinary incontinence R32 Acute metabolic encephalopathy G93.41 Hypothyroidism E03.9 Acute hyponatremia E87.1 Heart murmur R01.1 Anxiety F41.9 Proximal weakness of extremity M62.89 Rib fractures S22.49XA DVT prophylaxis Z29.9
[2023-01-04] MEDS: OLANZapine ZYDIS 5 MG ORALLY DIS. TAB PO SCH (21:03)
[2023-01-04] MEDS: MELATONIN 3 MG TAB PO SCH (21:03)
[2023-01-05] MEDS: LEVOTHYROXINE SODIUM 175 MCG TABLET PO SCH (05:31)
[2023-01-05] MEDS: ACETAMINOPHEN 500 MG TAB PO PRN (05:31)
[2023-01-05 06:10] LABS: BUN Creatinine Ratio 24.4 (10-20); Calcium 9.1 mg/dl (8.6-10.3); Est GFR (Non-African American) 64.7 ml/min; Potassium 4.1 mmol/L (3.5-5.1)
[2023-01-05 06:13] LABS: Hematocrit (blood only) 37.2 % (37.0-47.0); Hemoglobin 12.7 g/dl (12.0-16.0); Mean Corpuscular Hgb Conc 34.1 g/dL (32.0-36.0); Mean Corpuscular Volume 93.7 fL (80.0-100.0); Mean Platelet Volume 9.5 fL (9.4-12.4); Platelet Count 379 K/uL (130-400); RDW Coefficient of Variation 11.9 % (11.5-14.5); RDW Standard Deviation 41.5 fL (36.4-46.3); Red Blood Count 3.97 M/uL (4.20-5.40); White Blood Count 15.75 K/ul (4.8-10.8)
[2023-01-05] MEDS: ESCITALOPRAM OXALATE 10 MG TAB PO SCH (07:59)
[2023-01-05] MEDS: THIAMINE HCL 100 MG TAB PO SCH ×2 (07:59→20:31)
[2023-01-05] MEDS: CHOLECALCIFEROL 1,000 UNITS 25 MCG TAB PO SCH (07:59)
[2023-01-05] MEDS: DOCUSATE SODIUM 100 MG CAP PO SCH ×2 (07:59→20:35)
[2023-01-05] MEDS: MULTIVITAMIN TAB PO SCH (08:00)
[2023-01-05] MEDS: MIRABEGRON ER 25 MG TAB PO SCH (08:00)
[2023-01-05] MEDS: cephALEXin 500 MG CAP PO SCH ×2 (08:00→20:31)
[2023-01-05] MEDS: CEROVITE ADV FORMULA TAB PO SCH (08:00)
[2023-01-05] MEDS: DICLOFENAC SOD 1% GEL 100 GM TUBE EXT SCH ×4 (09:54→20:33)
[2023-01-05] MEDS: LIDOCAINE 5% 1 PATCH TD SCH (10:38)
[2023-01-05] MEDS: ENOXAPARIN INJ 30 MG/0.3 ML SYR SQ SCH (11:29)
[2023-01-05] MEDS ORDERED: SODIUM CHLORIDE 0.9% 1000ML 1,000 ML IV ONE ×2 (12:07→13:58)
[2023-01-05] MEDS ORDERED: OLANZAPINE 2.5 MG TAB PO STA (15:39)
--- NOTE | 2023-01-05 18:32 | Hospitalist Progress Note ---
Date of Service January 05, 2023 Assessment & Plan (1) Ambulatory dysfunction: Plan: 77 yo F admitted on 01/01/23 for ambulatory disfunction, memory changes and urinary leakage. - due to suspected NPH (see #2 below) in the setting of acute UTI. - MRI brain, CTs of the neck/t-spine/l-spine, numerous labs, etc do not give an alternative explanation for her symptoms. - she had improvement s/p large volume LP 01/03/23 in her gait/walking (see PT note below) --> however daughter thinks gait has subsequently worsened - cont PT/OT. - treat UTI. - awaiting B1 level - treat with empiric thiamine 200mg BID for now. (2) NPH (normal pressure hydrocephalus): Plan: - initially seen by Dr Primo Lu at [facility] as outpatient just prior to admission. he felt the diagnosis of exclusion was NPH at this time it is highly suspected that she has NPH based on clinical features (ataxia/ambulatory dysfunction, rapid onset of mental status changes, urinary incontinence, etc), imaging, and response to large volume LP 01/03/23. appreciate IR; appreciate PT; appreciate neurology consultations. cell counts from LP completely normal. opening pressure 16 (wnl). following the LP Clint Peña from physical therapy documented the following -- Daughter was present for the pre-LP physical therapy eval and the post-LP evaluation and she, too, felt there was a fairly dramatic difference in her m other's walking ability. However now thinks that gait is back to how it was before LP patient will need non-emergent neurosurgery evaluation for consideration of WEBSPHERE DEVELOPER shunt. discussed this with her daughter yesterday and today. daughter aware that improvement in gait/walking will be temporary since the body will ultimately replace the CSF removed and symptoms will reoccur. case discussed with Dr. Wheatley (neurology) today who said its normal for cognitive status to wax and wane, even after recent tap -- especially in setting of acute UTI. Patient may need acute rehab placement to bridge hospital stay with outpatient neurosurg appt cont PT/OT cont fall precautions will need rehab post-d/c treat UTI I spoke with [facility] and Dr Catie Craig at [facility] is known to perform WEBSPHERE DEVELOPER shunt placement. another neurosurgeon that could potentially help is Dr Schofield at [facility]. will need to investigate a referral to one of these providers early this coming week. (3) UTI (urinary tract infection): Plan: - 2nd pansens e.coli. - WBC elevated on 01/05/23 -- no other obvious infectious source. Trend CBC - Suspect that her UTI is contributing to her mental status changes and probably the urinary incontinence as well. s/p 2 doses of rocephin 2gm daily --> changed to oral keflex 500mg BID and treat for 5 additional days. (4) Recurrent falls: Plan: 2nd to #1 / #2. Low sodium, UTI could have contributed to global weakness enhancing her fall ri sk as well. PT/OT. See above. (5) Tachycardia: Plan: - HR running in 100-120 today - etiology uncertain - patient was boluses with 2 liters of NSS in the event dehydration was root - however also suspect it is secondary to distress from cognitive/psych changes (ie hallucinations seem to be distressing to her) - extra dose of 2.5mg zyprexa given with improvement in HR (6) Low back pain: Plan: Lumbar spine CT without acute fracture, spinal stenosis, etc. Obtained CTs of c-spine and t-spine as well - no spinal fractures. Treat symptoms. (7) Urinary incontinence: Plan: Acute/subacute per daughter. 2nd to UTI in the setting of suspected NPH as above. Hopefully there will be some improvement with Rx of UTI. (8) Acute metabolic encephalopathy: Plan: Suspect multi-factorial. Hyponatremia, UTI, and suspected NPH Lyme, B12 normal. Minimal elevation in TSH - doubt contributing. Sent B1 level - placed on empiric thiamine while awaiting level. Post-LP she had worsening mentation likely due to ativan use that was given for sedation for the lumbar puncture. cont scheduled zyprexa 2.5mg HS for ongoing delirium * additional 2.5mg dose given 01/05/23 afternoon due to worsening hallucinations of note - patient's daughter reports that for some time even before patient moved from [place], [place] to [facility] in [place] there was mild cognitive issues but it was mild. The dramatic drop off in mentation was over the last few weeks. (9) Hypothyroidism: Plan: TSH minimally elevated. Given recent difficulties with memory & cognition I would suspect that she had missed multiple doses of late. Would defer on changing her dose at this time. Cont synthroid, and simply repeat a TSH in 4-6 weeks. (10) Acute hyponatremia: Plan: resolved. 2nd to poor oral intake preadmission? corrected with isotonic fluid. Na 128 at admission; most recent Na level 137. (11) Heart murmur: Plan: echo noted. no significant valvular disease. suspect murmur is outflow tract murmur. no Rx needed. (12) Anxiety: Plan: cont SSRI. (13) Proximal weakness of extremity: Plan: I do not think she has typical proximal muscle weakness that would suggest a primary muscle disorder. Her b/l arm weakness (shoulders - right worse than left) is likely more so from shoulder issues (OA) than true muscle disease. CPK wnl. Inflammatory markers wnl. Cont to monitor this carefully. try voltaren gel 4gm QID to right shoulder for pain (14) Rib fractures: Plan: posterior right seventh through ninth ribs 2nd to pre-admission fall (had fallen at least 4 times per daughter) lidoderm patches prn tylenol prn (15) DVT prophylaxis: Plan: hold lovenox today; resumed on 01/05/23 Plan ok to d/c tele move to med/surg cont PT/OT likely to need rehab post d/c on Friday, 01/06 will begin to seek out neurosurgery consultation for possible NPH Admission and Anticipated Discharge Date Admission Date: January 02, 2023 Subjective Daughter Jaymie present at bedside -- despite initial improvement after LP on 01/03/23, patients gait and mentation have since worsened. Patient is obviously hallucinating int he room which is distressing to daughter. Her daughter brought in [facility] paperwork to be completed so she can have time off from work to care for her mother (ie anticipated WEBSPHERE DEVELOPER shunt placement, future medical appointments etc). Review of Systems Review of Systems: All systems reviewed & are unremarkable except as noted in HPI & below Physical Exam Constitutional: WD/WN, vitals as above + altered mental status; no acute distress Eyes: + anicteric sclerae ENMT: external ear and nose normal, oropharynx normal Neck: trachea midline, no thyromegaly Respiratory: normal respiratory effort, lungs clear to auscultation Cardiovascular: Rate/Rhythm: regular rhythm and + tachycardic Gastrointestinal (Abdomen): normal bowel sounds, soft, nontender, no hepatosplenomegaly Musculoskeletal: Head/Neck/Chest: normocephalic and head atraumatic Skin: no rashes, warm and dry Neurologic: moves all extremities Psychiatric: Orientation: alert and oriented to person; + not oriented to place and + not oriented to time Hallucinations: + visual hallucinations Genitourinary: urinary catheter in place draining yellow urine without visible clots Results & Data Results & Data Vital Signs (Past 12 Hours) Vital Signs Temp Pulse Resp BP BP Pulse Ox O2 Del Method 01/05/23 14:32 36.5 C 117 H 18 169/90 H 97 Room Air 01/05/23 12:01 117 H 18 144/84 H 94 Room Air 01/05/23 07:21 36.7 C 131 H 18 144/74 H 95 Room Air PG Care Time/CCT Total # of Minutes Spent Total Time Spent with Patient: Total time spent is greater than 50% in coordination of care (as documented) at patient's floor/unit and/or counseling patient: Coding Level of Care Code 62128 SUB INP/OBS CARE 2/35MIN Diagnoses Ambulatory dysfunction R26.2 NPH (normal pressure hydrocephalus) G91.2 UTI (urinary tract infection) N39.0 Recurrent falls R29.6 Tachycardia R00.0 Low back pain M54.50 Urinary incontinence R32 Acute metabolic encephalopathy G93.41 Hypothyroidism E03.9 Acute hyponatremia E87.1 Heart murmur R01.1 Anxiety F41.9 Proximal weakness of extremity M62.89 Rib fractures S22.49XA DVT prophylaxis Z29.9
[2023-01-05] MEDS ORDERED: METOPROLOL SUCC 25MG EXT REL TAB PO STA (18:47)
[2023-01-05] MEDS: OLANZapine ZYDIS 5 MG ORALLY DIS. TAB PO SCH (20:31)
[2023-01-05] MEDS: MELATONIN 3 MG TAB PO SCH (20:35)
[2023-01-06] MEDS: LEVOTHYROXINE SODIUM 175 MCG TABLET PO SCH (06:01)
[2023-01-06 07:29] LABS: Basophils # (auto) 0.03 K/uL (0-0.2); Basophils % (auto) 0.4 %; Eosinophils # (auto) 0.03 K/uL (0-0.50); Eosinophils % (auto) 0.4 %; Hematocrit (blood only) 33.8 % (37.0-47.0); Hemoglobin 11.5 g/dl (12.0-16.0); Immature Granulocytes # (auto) 0.03 K/uL (0.01-0.20); Immature Granulocytes % (auto) 0.4 %; Lymphocytes # (auto) 0.76 K/uL (1.2-3.4); Lymphocytes % (auto) 9.4 %; Mean Corpuscular Hemoglobin 31.9 pg (25.0-34.0); Mean Corpuscular Volume 93.6 fL (80.0-100.0); Mean Platelet Volume 9.7 fL (9.4-12.4); Monocytes # (auto) 1.17 K/uL (0.11-0.59); Monocytes % (auto) 14.4 %; Platelet Count 346 K/uL (130-400); RDW Coefficient of Variation 12.2 % (11.5-14.5); RDW Standard Deviation 42.2 fL (36.4-46.3); Red Blood Count 3.61 M/uL (4.20-5.40); White Blood Count 8.12 K/ul (4.8-10.8)
[2023-01-06] MEDS: THIAMINE HCL 100 MG TAB PO SCH ×2 (08:10→20:37)
[2023-01-06] MEDS: MIRABEGRON ER 25 MG TAB PO SCH (08:10)
[2023-01-06] MEDS: cephALEXin 500 MG CAP PO SCH ×2 (08:10→20:35)
[2023-01-06] MEDS: MULTIVITAMIN TAB PO SCH (08:11)
[2023-01-06] MEDS: ENOXAPARIN INJ 30 MG/0.3 ML SYR SQ SCH (08:11)
[2023-01-06] MEDS: ESCITALOPRAM OXALATE 10 MG TAB PO SCH (08:11)
[2023-01-06] MEDS: CHOLECALCIFEROL 1,000 UNITS 25 MCG TAB PO SCH (08:11)
[2023-01-06] MEDS: CEROVITE ADV FORMULA TAB PO SCH (08:11)
[2023-01-06] MEDS: DICLOFENAC SOD 1% GEL 100 GM TUBE EXT SCH ×4 (08:11→20:36)
[2023-01-06] MEDS: LIDOCAINE 5% 1 PATCH TD SCH (08:12)
[2023-01-06 09:56] LABS: Albumin Globulin Ratio 1.5 (0.9-2); Albumin Level 3.7 gm/dl (3.4-5.0); BUN Creatinine Ratio 21.9 (10-20); Bilirubin,Total 0.4 mg/dl (0.2-1.0); Calcium 8.7 mg/dl (8.6-10.3); Creatinine Clr Calc Pharmacy 71.8 ml/min; Est GFR (African American) 99.1 ml/min; Est GFR (Non-African American) 85.5 ml/min; Globulin 2.4 gm/dl (2.5-4.0); Potassium 3.6 mmol/L (3.5-5.1); Total Protein 6.1 gm/dl (6.0-8.3)
--- NOTE | 2023-01-06 10:06 | Neurology Progress Note ---
Date of Service January 06, 2023 Assessment & Plan (1) NPH (normal pressure hydrocephalus): Plan Neurology Progress Note Assessment & Plan: Impression: Pt with NPH in setting of UTI and hyponatremia and dehydration. NPH is permanent structural problem and will likely progress over time. Main treatment is ORDERLIES TEACHER shunt placement. it is expected that pt will have fluctuating confusion/cognitive changes as pt also still recovering from UTI and hyponatremia. Recommendations: -continue supportive care. tx UTI and metabolic disorders. please discuss with neurosurgery for future plan. not much to offer from neurology at this point. call again if new question. Dr. Kishore Wheatley MD [facility] Subjective: Patient Seen and Examined. The notes from the last 24 hours were reviewed.pt this morning alert and talking well. slight confusion. Review of Systems: Per HPI and prior note. Physical Exam: HEENT: Normocephalic. No icter or congestion Neuro: Level of consciousness:Alert and appropriate, knew the name of hospital. knew year. initially thought henry was president but corrected to Biden. some tangential thoughts. Cranial Nerves:face symmetric, PERRL, tongue midline, hearing intact, shrugs shoulders Strength:5/5 throughout Sensation to light touch: Intact bilaterally Meds: See chart I personally reviewed all of the medications Chart reviewed Total time spent: 50 minutes (this includes chart review); more than 50% time spent in counseling or coordination of care. Admission and Anticipated Discharge Date Admission Date: January 02, 2023 Results & Data Vital Signs (Past 12 Hours) Vital Signs Temp Pulse Resp BP Pulse Ox O2 Del Method 01/06/23 07:03 36.7 C 86 18 133/79 93 Room Air
[2023-01-06] MEDS: DOCUSATE SODIUM 100 MG CAP PO SCH ×2 (12:30→20:36)
--- NOTE | 2023-01-06 16:18 | Hospitalist Progress Note ---
Date of Service January 06, 2023 Assessment & Plan (1) Ambulatory dysfunction: Plan: due to suspected NPH (see #2 below) in the setting of acute UTI. MRI brain, CTs of the neck/t-spine/l-spine, numerous labs, etc do not give an alternative explanation for her symptoms. she had improvement s/p larg volume LP 01/03/23 in her gait/walking (see PT note below). cont PT/OT. treat UTI. awaiting B1 level - treat with empiric thiamine 200mg BID for now. (2) NPH (normal pressure hydrocephalus): Plan: initially seen by Dr Primo Lu at [facility] as outpatient just prior to admission. he felt the diagnosis of exclusion was NPH at this time it is highly suspected that she has NPH based on clinical features (ataxia/ambulatory dysfunction, rapid onset of mental status changes, urinary incontinence, etc), imaging, and response to large volume LP 01/03/23. appreciate IR; appreciate PT; appreciate neurology consultations. cell counts from LP completely normal. opening pressure 16 (wnl). following the LP Clint Peña from physical therapy documented the following -- Daughter was present for the pre-LP physical therapy eval and the post-LP evaluation and she, too, felt there was a fairly dramatic difference in her mother's walking ability. patient will need non-emergent neurosurgery evaluation for consideration of INK TECHNICIAN shunt. Called daughter and left a message today daughter aware that improvement in gait/walking will be temporary since the body will ultimately replace the CSF removed and symptoms will reoccur. cont PT/OT cont fall precautions will need rehab post-d/c treat UTI I spoke with nurse navigator regarding outpatient follow-up with [facility] for further management of likely normal pressure hydrocephalus with INK TECHNICIAN shunt placement (3) UTI (urinary tract infection): Plan: 2nd pansens e.coli. Suspect that her UTI is contributing to her mental status changes and probably the urinary incontinence as well. s/p 2 doses of rocephin 2gm daily. Change to oral keflex 500mg BID and treat for 5 additional days. (4) Recurrent falls: Plan: 2nd to #1 / #2. Low sodium, UTI could have contributed to global weakness enhancing her fall risk as well. PT/OT. See above. (5) Low back pain: Plan: Lumbar spine CT without acute fracture, spinal stenosis, etc. Obtained CTs of c-spine and t-spine as well - no spinal fractures. Treat symptoms. (6) Urinary incontinence: Plan: Acute/subacute per daughter. 2nd to UTI in the setting of suspected NPH as above. Hopefully there will be some improvement with Rx of UTI. (7) Acute metabolic encephalopathy: Plan: Suspect multi-factorial. Hyponatremia, UTI, and suspected NPH Lyme, B12 normal. Minimal elevation in TSH - doubt contributing. Sent B1 level - placed on empiric thiamine while awaiting level. Post-LP she had worsening mentation likely due to ativan use that was given for sedation for the lumbar puncture. Increase the Zyprexa to 5 mg nightly as the patient was not able to sleep well overnight and has been slightly agitated this morning. of note - patient's daughter reports that for some time even before patient moved from [place], [place] to [facility] in [place] there was mild cognitive issues but it was mild. The dramatic drop off in mentation was over the last few weeks. (8) Hypothyroidism: Plan: TSH minimally elevated. Given recent difficulties with memory & cognition I would suspect that she had missed multiple doses of late. Would defer on changing her dose at this time. Cont synthroid, and simply repeat a TSH in 4-6 weeks. (9) Acute hyponatremia: Plan: resolved. 2nd to poor oral intake preadmission? corrected with isotonic fluid. Na 128 at admission; most recent Na level 137. (10) Heart murmur: Plan: echo noted. no significant valvular disease. suspect murmur is outflow tract murmur. no Rx needed. (11) Anxiety: Plan: cont SSRI. (12) Proximal weakness of extremity: Plan: I do not think she has typical proximal muscle weakness that would suggest a primary muscle disorder. Her b/l arm weakness (shoulders - right worse than left) is likely more so from shoulder issues (OA) than true muscle disease. CPK wnl. Inflammatory markers wnl. Cont to monitor this carefully. try voltaren gel 4gm QID to right shoulder for pain (13) Rib fractures: Plan: posterior right seventh through ninth ribs 2nd to pre-admission fall (had fallen at least 4 times per daughter) lidoderm patches prn tylenol prn (14) DVT prophylaxis: Plan: hold lovenox today; resume on 01/05/23 Plan cont PT/OT likely to need rehab post d/c Admission and Anticipated Discharge Date Admission Date: January 02, 2023 Subjective Per nurse, patient has been slightly agitated. But during my encounter, she was very cooperative. She says that she was not able to sleep very well overnight. Review of Systems Review of Systems: All systems reviewed & are unremarkable except as noted in Subjective Physical Exam Physical Exam: General: Awake, conversant Heart: S1, S2/regular rate and rhythm, no murmur rubs or gallops Lungs: Clear to auscultation bilaterally. Normal effort Abdomen: Soft/nontender/nondistended. No hepatosplenomegaly Extremities: No clubbing/cyanosis. No edema Behavior: Appropriate, cooperative Results & Data Results & Data Vital Signs (Past 12 Hours) Vital Signs Temp Pulse Resp BP Pulse Ox O2 Del Method 01/06/23 14:06 36.6 C 95 H 18 160/84 H 96 Room Air 01/06/23 07:03 36.7 C 86 18 133/79 93 Room Air Laboratory Results Abnormal lab results 01/06/23 01/06/23 Range/Units 06:00 06:00 RBC 3.61 L (4.20-5.40) M/uL Hgb 11.5 L (12.0-16.0) g/dl Hct 33.8 L (37.0-47.0) % Lymph # (Auto) 0.76 L (1.2-3.4) K/uL Maverick # (Auto) 1.17 H (0.11-0.59) K/uL Sodium 133 L (136-145) mmol/L BUN/Creatinine Ratio 21.9 H (10-20) Alkaline Phosphatase 119 H (34-104) U/L Globulin 2.4 L (2.5-4.0) gm/dl PG Care Time/CCT Total # of Minutes Spent Total Time Spent with Patient: Total time spent is greater than 50% in coordination of care (as documented) at patient's floor/unit and/or counseling patient: Coding Level of Care Code 70725 SUB INP/OBS CARE 2/35MIN Diagnoses Ambulatory dysfunction R26.2 NPH (normal pressure hydrocephalus) G91.2 UTI (urinary tract infection) N39.0 Recurrent falls R29.6 Low back pain M54.50 Urinary incontinence R32 Acute metabolic encephalopathy G93.41 Hypothyroidism E03.9 Acute hyponatremia E87.1 Heart murmur R01.1 Anxiety F41.9 Proximal weakness of extremity M62.89 Rib fractures S22.49XA DVT prophylaxis Z29.9
[2023-01-06] MEDS ORDERED: OLANZapine ZYDIS 5 MG ORALLY DIS. TAB PO SCH (16:25)
[2023-01-06] MEDS: MELATONIN 3 MG TAB PO SCH (20:36)
[2023-01-06] MEDS ORDERED: OLANZAPINE 2.5 MG TAB PO SCH (21:00)
[2023-01-07] MEDS: LEVOTHYROXINE SODIUM 175 MCG TABLET PO SCH (06:03)
[2023-01-07] MEDS: MULTIVITAMIN TAB PO SCH (07:51)
[2023-01-07] MEDS: cephALEXin 500 MG CAP PO SCH (07:51)
[2023-01-07] MEDS: CEROVITE ADV FORMULA TAB PO SCH (07:51)
[2023-01-07] MEDS: CHOLECALCIFEROL 1,000 UNITS 25 MCG TAB PO SCH (07:51)
[2023-01-07] MEDS: DOCUSATE SODIUM 100 MG CAP PO SCH (07:51)
[2023-01-07] MEDS: LIDOCAINE 5% 1 PATCH TD SCH (07:52)
[2023-01-07] MEDS: ESCITALOPRAM OXALATE 10 MG TAB PO SCH (07:52)
[2023-01-07] MEDS: THIAMINE HCL 100 MG TAB PO SCH (07:52)
[2023-01-07] MEDS: MIRABEGRON ER 25 MG TAB PO SCH (07:52)
[2023-01-07] MEDS: DICLOFENAC SOD 1% GEL 100 GM TUBE EXT SCH ×2 (07:52→13:36)
[2023-01-07] MEDS: ENOXAPARIN INJ 30 MG/0.3 ML SYR SQ SCH (07:53)
--- NOTE | 2023-01-07 13:04 | Discharge Summary ---
Date of Service January 07, 2023 Admission HPI Per Admitting Provider The patient is a 77-year-old female with a past medical history including osteoarthritis, depression, hypothyroidism, insomnia, bladder spasms, urinary leakage and constipation. She is brought to the emergency department by family due to concerns regarding relatively rapid progression of declining function both physically and mentally over the past 2 weeks, and particularly over the past 2 days has transition from walking with a cane to walking with a walker and now being in a wheelchair. The patient is not able to contribute significantly to HPI or review of systems. Work-up in the emergency department included imaging: CT scan of head and lumbar spine were normal, and chest x-ray was normal. Significant laboratories: WBC 14.33, sodium 128 and glucose 107 Admission Exam Per Admitting Provider The patient is awake and minimally responsive to questions, well developed and well nourished, normocephalic and atraumatic, lying in bed and in no acute distress. HEENT--PERRL, EOMI, mucous membranes and oropharynx dry. Neck--supple. No JVD. No bruits. Thyroid normal, trachea midline, no adenopathy. Heart--normal S1 and S2. No murmurs, rubs or gallops. Lungs--clear bilaterally, no respiratory distress, no accessory muscle use. Abdomen--normal bowel sounds and soft. Nontender. Nondistended, no hernias or masses, no organomegaly. Extremities--no cyanosis or clubbing. No edema. Dermatologic--normal skin turgor, normal color, no abnormal lymph nodes, no rash. Neurologic--cranial nerves II through XII grossly intact. Rheumatologic--limited exam Psychiatric--normal affect. Principal Diagnosis Likely normal pressure hydrocephalus UTI Hospital-acquired delirium Discharge Exam General: Awake, conversant Heart: S1, S2/regular rate and rhythm, no murmur rubs or gallops Lungs: Clear to auscultation bilaterally. Normal effort Abdomen: Soft/nontender/nondistended. No hepatosplenomegaly Extremities: No clubbing/cyanosis. No edema Behavior: Appropriate, cooperative Discharge Data Allergies Allergy/AdvReac Type Severity Reaction Status Date / Time No Known Allergies Allergy Mild 0 Verified 01/01/23 22:17 Consultations 01/01/23 22:48 ED Decision to Admit Stat 01/03/23 07:30 Consult Neurology Routine Ordered Studies 01/01/23 21:08 CT head/brain wo con Stat CT lumbar spine wo con Stat 01/01/23 23:19 MRI Brain [MR brain wo con] Stat 01/02/23 20:42 CT cervical spine wo con Urgent CT thoracic spine wo con Urgent 01/03/23 11:57 IR lumbar puncture therapeutic Routine Hospital Course (1) Ambulatory dysfunction: due to suspected NPH (see #2 below) in the setting of acute UTI. MRI brain, CTs of the neck/t-spine/l-spine, numerous labs, etc do not give an alternative explanation for her symptoms. she had improvement s/p larg volume LP 01/03/23 in her gait/walking (see PT note below). But soon her symptoms got worse afterward cont PT/OT. treat UTI. awaiting B1 level - treat with empiric thiamine 200mg BID for now. (2) NPH (normal pressure hydrocephalus): initially seen by Dr Primo Lu at [facility] as outpatient just prior to admission. he felt the diagnosis of exclusion was NPH at this time it is highly suspected that she has NPH based on clinical features (ataxia/ambulatory dysfunction, rapid onset of mental status changes, urinary incontinence, etc), imaging, and response to large volume LP 01/03/23. appreciate IR; appreciate PT; appreciate neurology consultations. cell counts from LP completely normal. opening pressure 16 (wnl). following the LP Clint Peña from physical therapy documented the following -- Daughter was present for the pre-LP physical therapy eval and the post-LP evaluation and she, too, felt there was a fairly dramatic difference in her mother's walking ability. However her symptoms got worse later on which is expected with normal pressure hydrocephalus. She will need a nonemergent neurosurgery evaluation outpatient for consideration of a [employer] PRO[employer] shunt daughter aware that improvement in gait/walking will be temporary since the body will ultimately replace the CSF removed and symptoms will reoccur. cont PT/OT cont fall precautions will need rehab post-d/c treat UTI I spoke with nurse navigator regarding outpatient follow-up with [facility] for further management of likely normal pressure hydrocephalus with PLC PROGRAMMER sh unt placement. The daughter will be called for a an outpatient appointment to be scheduled (3) UTI (urinary tract infection): 2nd pansens e.coli. Suspect that her UTI is contributing to her mental status changes and probably the urinary incontinence as well. s/p 2 doses of rocephin 2gm daily. Change to oral keflex 500mg BID and treat for 5 additional days. (4) Recurrent falls: 2nd to #1 / #2. Low sodium, UTI could have contributed to global weakness enhancing her fall risk as well. PT/OT. See above. (5) Low back pain: Lumbar spine CT without acute fracture, spinal stenosis, etc. Obtained CTs of c-spine and t-spine as well - no spinal fractures. Treat symptoms. (6) Urinary incontinence: Acute/subacute per daughter. 2nd to UTI in the setting of suspected NPH as above. Hopefully there will be some improvement with Rx of UTI. (7) Acute metabolic encephalopathy: Suspect multi-factorial. Hyponatremia, UTI, and suspected NPH Lyme, B12 normal. Minimal elevation in TSH - doubt contributing. Sent B1 level - placed on empiric thiamine while awaiting level. Post-LP she had worsening mentation likely due to ativan use that was given for sedation for the lumbar puncture. Part of it could be related to hospital-acquired delirium which was being treated with Zyprexa during the hospital stay of note - patient's daughter reports that for some time even before patient moved from [place], [place] to [facility] in [place] there was mild cognitive issues but it was mild. The dramatic drop off in mentation was over the last few weeks. (8) Hypothyroidism: TSH minimally elevated. Given recent difficulties with memory & cognition I would suspect that she had missed multiple doses of late. Would defer on changing her dose at this time. Cont synthroid, and simply repeat a TSH in 4-6 weeks. (9) Acute hyponatremia: resolved. 2nd to poor oral intake preadmission? corrected with isotonic fluid. (10) Heart murmur: echo noted. no significant valvular disease. suspect murmur is outflow tract murmur. no Rx needed. (11) Anxiety: cont SSRI. (12) Proximal weakness of extremity: I do not think she has typical proximal muscle weakness that would suggest a primary muscle disorder. Her b/l arm weakness (shoulders - right worse than left) is likely more so from shoulder issues (OA) than true muscle disease. CPK wnl. Inflammatory markers wnl. Cont to monitor this carefully. (13) Rib fractures: posterior right seventh through ninth ribs 2nd to pre-admission fall (had fallen at least 4 times per daughter) lidoderm patches prn tylenol prn (14) DVT prophylaxis: hold lovenox today; resume on 01/05/23 Plan cont PT/OT likely to need rehab post d/c Total Time Total Time Spent Total Time Spent (In Minutes): 35 Discharge Plan Discharge Items Patient Disposition: Transfer Assisted Fac Reason For Visit: HYPONATREMIA, AMB DYSF, COGNITIVE DECLINE Discharge Diagnosis: Normal pressure hydrocephalus (likely), ambulatory dysfunction, recurrent falls, UTI, urinary incontinence Activity: As commented below Activity Comment: Per PT/OT recommendations Non-emergency contact: Primary Care Provider Call non-emergency contact if: you have any medication questions and your symptoms worsen Follow-up/Referrals: Marshall Zavala DO [Primary Care Provider] - Diet: Heart Healthy Addtl Attending Provider Instructions: Advised to follow-up with neurosurgery outpatient at [facility]. They will call you to schedule the appointment Pending Studies at Discharge: No Stand-Alone Forms: My [facility] Skilled Items Patient informed of condition?: Yes DNR: No Discharge Level of Care: Skilled Communicable Disease: No Discharge Prognosis: Stable Lines: None Urinary Catheter: No Medications and DC Order Prescriptions: New cephalexin 500 mg Capsule 500 mg PO BID 4 Days Qty: 8 0RF Continued multivitamin Tablet 1 tab PO DAILY levothyroxine 175 mcg tablet 175 mcg PO DAILY acetaminophen [Tylenol Extra Strength] 500 mg Tablet 500 mg PO Q6H PRN (Reason: Fever Or Pain) calcium carbonate 400 mg calcium (1,000 mg) Tablet,Chewable 800 mg PO DIRECTED PRN (Reason: .heartburn) naproxen sodium 220 mg Tablet 440 mg PO BID PRN (Reason: Pain) docusate sodium 100 mg Capsule 100 mg PO BID clotrimazole 1 % Cream 1 applic TOPICAL BID Rx Instructions: Until clear for rash escitalopram oxalate 10 mg tablet 10 mg PO DAILY diclofenac sodium 1 % Gel 2 g TOPICAL QID cholecalciferol (vitamin D3) [Vitamin D3] 50 mcg (2,000 unit) Tablet 50 mcg PO DAILY melatonin 10 mg Tablet 10 mg PO HS Myrbetriq 50 mg tablet extended release 24 hr 50 mg PO DAILY PreserVision AREDS-2 250-90-40-1 mg Capsule 1 tab PO BID Rx Instructions: softgel Prevagen 1 tab PO DAILY Discontinued ibuprofen 200 mg Tablet 400 mg PO Q6H PRN (Reason: Pain) Discharge Orders: Discharge Order (Routine); Ordered 01/07/23 Ordered By: Ximena Cancino Admission Data Admit Date/Time: 01/02/23 00:00 Attending Provider: Ximena Cancino Admit Provider: Roosevelt Villarreal Primary Care Provider: Marshall Zavala Other Providers: Roosevetl Villarreal ; Kishore Wheatley ; Mika Burciaga ; [facility] Coding Level of Care Code 83104 INP/OBS DISCH >30 MIN Diagnoses Ambulatory dysfunction R26.2 NPH (normal pressure hydrocephalus) G91.2 UTI (urinary tract infection) N39.0 Recurrent falls R29.6 Low back pain M54.50 Urinary incontinence R32 Acute metabolic encephalopathy G93.41 Hypothyroidism E03.9 Acute hyponatremia E87.1 Heart murmur R01.1 Anxiety F41.9 Proximal weakness of extremity M62.89 Rib fractures S22.49XA DVT prophylaxis Z29.9
== END 2023-01-07 16:58 | DRG 640 ==
LOC: ED 20:24 → 2E 01-02 → SUATTDRO 01-02 → 2E 01-02 04:14 → 3E 01-04 20:41
DX: R53.1 Weakness; G93.41 Metabolic encephalopathy; E03.9 Hypothyroidism, unspecified; N39.0 Urinary tract infection, site not specified; M19.90 Unspecified osteoarthritis, unspecified site; F32.A Depression, unspecified; F41.9 Anxiety disorder, unspecified; Z87.891 Personal history of nicotine dependence; S22.41XA Multiple fractures of ribs, right side, initial encounter for closed fracture; R29.6 Repeated falls; E87.1 Hypo-osmolality and hyponatremia; Z79.890 Hormone replacement therapy; G91.2 (Idiopathic) normal pressure hydrocephalus; W19.XXXA Unspecified fall, initial encounter; B96.20 Unspecified Escherichia coli [E. coli] as the cause of diseases classified elsewhere; R41.0 Disorientation, unspecified; G47.00 Insomnia, unspecified; M54.50 Low back pain, unspecified; Z79.899 Other long term (current) drug therapy

== ENCOUNTER 2023-01-13 20:28 | Observation (INO) ==
--- NOTE | 2023-01-13 21:07 | Emergency Department Note ---
Impression & Plan AMS (altered mental status) ED Provider Note HISTORY OF PRESENT ILLNESS: Patient is a 77-year-old female presenting with altered mental status. Daughter provides history, given patient's confusion. Patient resides at [facility]. She was seen at [facility] today for evaluation for placement of a INSURANCE CLAIMS CLERK shunt given her normal pressure hydrocephalus diagnosis. She is scheduled for a shunt placement on January 27. Reportedly, since being back at the facility she has had a rapid decline in her mental status. She is very confused and not answering questions appropriately. No reported falls or head injuries. No reported fevers. No chest pain, shortness of breath or abdominal pain complaints. Daughter reports that the PA at [facility] had recommended reevaluation in the emergency department for potential elevated pressure in her head. ROS: as above PHYSICAL EXAM: Constitutional: Patient appears in no acute distress. HENT: Head: Normocephalic and atraumatic. Eyes: EOMI, PERRL Mouth/Throat: Mucous membranes moist. Neck: Trachea midline. Neck supple. Cardiovascular: RRR, No murmurs, rubs or gallops. Intact distal pulses. Pulmonary/Chest: No respiratory distress. Breath sounds clear and equal bilaterally. No wheezes or rales. Abdominal: BS +. Abdomen soft, no tenderness, rebound or guarding. Musculoskeletal: No edema, tenderness or deformity noted. Skin: Warm and dry. No rash, erythema, pallor or cyanosis Psychiatric: Appropriate mood and affect for situation. Neurological: Alert but confused. CN II-XII grossly intact. Moves all extremities spontaneously MDM: - Vitals signs stable. - History obtained via patient's daughter, given patient's confusion. Patient presents with altered mental status. Patient's daughter reports that since being out at an appointment earlier today the patient has returned to [facility] and significantly altered. She is not acting her normal self. Reports a rapid decline in her condition in the last 6 hours. - Chronic conditions affecting care: urinary incontinence; hypothyroidism - Differential diagnoses include, but are not limited to: Intracranial bleed vs mass; stroke; seizures; dementia; electrolyte abnormality; medication side effect; UTI; pneumonia; trauma - Order placed for continuous cardiac monitoring. At this time, monitor showed rate of 110 bpm with normal sinus rhythm, per my interpretation. - External medical records reviewed. Patient's discharge summary from her recent hospital stay was reviewed. Patient was just discharged to [facility] from the hospital 7 days ago. She was admitted for declining physical and mental function. - EKG reviewed by myself showed normal sinus rhythm. Rate 91 bpm. QTc 432. No acute ischemic changes. - Laboratory workup interpreted by myself showed leukocytosis (WBC 15.77) with left shift; stable electrolytes; normal troponin; normal lactate; normal creatinine; normal procalcitonin - UA shows WBC and leukocyte esterase, but no bacteria. - CXR negative for pneumonia, per my interpretation. - CT head wo contrast negative for acute intracranial pathology. -Discussed results with patient and her daughter at bedside. Patient is still not back to her normal baseline. Daughter expresses request for admission - Discussion was had with rn social work about patient's case and need for admission. - Hospitalist, Dr. Villarreal, consulted for admission. - Patient admitted to [facility] for further evaluation and management. ASSESSMENT AND PLAN: Diagnosis: altered mental status Plan: admit Past Med/Surg History Medical History (Updated 01/14/23 @ 01:17 by Billie Palacios MD) Anxiety Balance problem Dry eye syndrome Glaucoma Hypothyroidism Memory problem Osteoarthritis Overactive bladder Urinary incontinence Surgical History (Updated 12/09/20 @ 10:23 by Zoran Chandler) History of ankle surgery Left History of cataract surgery RT/LEFT History of colonoscopy History of hysterectomy with unilateral oophorectomy History of right hip replacement History of wisdom tooth extraction Family History Other No family history of adverse response to anesthesia Social History Smoking Status: Former smoker Second Hand Exposure: No; Hx Alcohol Use: No Hx Substance Use: No Preferred Language: Sinhala Communication Ability: Impaired Grader Operator Required: No Beliefs That Will Affect Care: None marital status: Current Living Situation: Spouse Current Living Situation Comment: was at [facility] for about a month left friday Feels Safe at Home: Yes and Declines to Answer Assistive Devices: Walker and Wheelchair Allergies Allergies Allergy/AdvReac Type Severity Reaction Status Date / Time No Known Allergies Allergy Mild 0 Verified 01/01/23 22:17 Home Meds Home Medications Medication Instructions Recorded Confirmed Prevagen 1 tab PO DAILY 01/01/23 01/01/23 acetaminophen 500 mg tablet 500 mg PO Q6H PRN Fever Or Pain 04/12/23 04/12/23 (Tylenol Extra Strength) calcium carbonate 400 mg calcium 800 mg PO DIRECTED PRN 01/01/23 01/01/23 (1,000 mg) chewable tablet .heartburn cholecalciferol (vitamin D3) 50 50 mcg PO DAILY 01/01/23 01/01/23 mcg (2,000 unit) tablet (Vitamin D3) clotrimazole 1 % topical cream 1 applic topical BID 01/01/23 01/01/23 diclofenac sodium 1 % topical gel 2 g topical QID 01/01/23 01/01/23 docusate sodium 100 mg capsule 100 mg PO BID 01/01/23 01/01/23 escitalopram oxalate 10 mg tablet 10 mg PO DAILY 01/01/23 01/01/23 levothyroxine 175 mcg tablet 175 mcg PO DAILY 01/01/23 01/01/23 melatonin 10 mg tablet 10 mg PO HS 01/01/23 01/01/23 mirabegron 50 mg tablet,extended 50 mg PO DAILY 01/01/23 01/01/23 release 24 hr (Myrbetriq) multivitamin 1 tab PO DAILY 01/01/23 01/01/23 naproxen sodium 220 mg tablet 440 mg PO BID PRN Pain 01/01/23 01/01/23 vit C 250 mg-vit E 90 mg-zinc 40 1 tab PO BID 01/01/23 01/01/23 mg-copper 1 [id number] capsule (PreserVision AREDS-2) Results & Data (ED) Vital Signs Vital Signs - 24 hr 01/13/23 20:40 01/13/23 20:40 01/13/23 20:46 Temperature 36.9 C Temperature Source Oral Pulse Rate 104 H 96 H Pulse Rate [Finger] 104 H Pulse Rate from SpO2 Sensor Pulse Rhythm Regular Pulse Strength Normal Respiratory Rate 18 Respiratory Effort / Characteristics Non-Labored Spontaneous Non-Labored Spontaneous Respiratory Depth Normal Normal Respiratory Pattern Regular Regular Blood Pressure 140/54 L Blood Pressure Mean 82 Pulse Oximetry 97 96 Oxygen Delivery Method Room Air Room Air Sepsis Recent Fever Within 48 Hours No Sepsis New/Unexplained Change in Mental Status No Sepsis Action Taken by Nursing No Action Required 01/13/23 21:38 01/13/23 20:43 01/13/23 20:45 Temperature Temperature Source Pulse Rate 96 H 104 H Pulse Rate [Finger] Pulse Rate from SpO2 Sensor 98 H 104 H Pulse Rhythm Pulse Strength Respiratory Rate 18 18 Respiratory Effort / Characteristics Respiratory Depth Respiratory Pattern Blood Pressure Blood Pressure Mean Pulse Oximetry 96 97 Oxygen Delivery Method Room Air Sepsis Recent Fever Within 48 Hours Sepsis New/Unexplained Change in Mental Status Sepsis Action Taken by Nursing 01/13/23 21:00 01/13/23 21:15 01/13/23 21:39 Temperature Temperature Source Pulse Rate 102 H 112 H Pulse Rate [Finger] Pulse Rate from SpO2 Sensor Pulse Rhythm Pulse Strength Respiratory Rate 19 18 19 Respiratory Effort / Characteristics Respiratory Depth Respiratory Pattern Blood Pressure Blood Pressure Mean Pulse Oximetry Oxygen Delivery Method Sepsis Recent Fever Within 48 Hours Sepsis New/Unexplained Change in Mental Status Sepsis Action Taken by Nursing 01/13/23 21:45 01/13/23 22:00 01/13/23 22:06 Temperature Temperature Source Pulse Rate 107 H 99 H Pulse Rate [Finger] Pulse Rate from SpO2 Sensor 108 H 97 H Pulse Rhythm Pulse Strength Respiratory Rate 18 27 H Respiratory Effort / Characteristics Respiratory Depth Respiratory Pattern Blood Pressure 104/53 L Blood Pressure Mean 70 Pulse Oximetry 96 96 Oxygen Delivery Method Sepsis Recent Fever Within 48 Hours Sepsis New/Unexplained Change in Mental Status Sepsis Action Taken by Nursing 01/13/23 22:06 01/13/23 22:15 01/13/23 22:28 Temperature Temperature Source Pulse Rate 114 H 119 H 124 H Pulse Rate [Finger] Pulse Rate from SpO2 Sensor 115 H Pulse Rhythm Pulse Strength Respiratory Rate 13 21 22 Respiratory Effort / Characteristics Respiratory Depth Respiratory Pattern Blood Pressure Blood Pressure Mean Pulse Oximetry 95 Oxygen Delivery Method Sepsis Recent Fever Within 48 Hours Sepsis New/Unexplained Change in Mental Status Sepsis Action Taken by Nursing 01/13/23 22:30 01/13/23 23:02 01/13/23 23:02 Temperature Temperature Source Pulse Rate Pulse Rate [Finger] Pulse Rate from SpO2 Sensor Pulse Rhythm Pulse Strength Respiratory Rate 13 Respiratory Effort / Characteristics Respiratory Depth Respiratory Pattern Blood Pressure 127/101 H 97/76 L Blood Pressure Mean 109 83 Pulse Oximetry Oxygen Delivery Method Sepsis Recent Fever Within 48 Hours Sepsis New/Unexplained Change in Mental Status Sepsis Action Taken by Nursing 01/13/23 23:15 01/13/23 23:30 01/13/23 23:31 Temperature Temperature Source Pulse Rate 120 H 115 H Pulse Rate [Finger] Pulse Rate from SpO2 Sensor 120 H 115 H Pulse Rhythm Pulse Strength Respiratory Rate 23 Respiratory Effort / Characteristics Respiratory Depth Respiratory Pattern Blood Pressure 123/84 Blood Pressure Mean 97 Pulse Oximetry 95 98 Oxygen Delivery Method Sepsis Recent Fever Within 48 Hours Sepsis New/Unexplained Change in Mental Status Sepsis Action Taken by Nursing 01/13/23 23:31 01/13/23 23:45 01/14/23 00:00 Temperature Temperature Source Pulse Rate 114 H Pulse Rate [Finger] Pulse Rate from SpO2 Sensor 114 H 120 H 101 H Pulse Rhythm Pulse Strength Respiratory Rate Respiratory Effort / Characteristics Respiratory Depth Respiratory Pattern Blood Pressure Blood Pressure Mean Pulse Oximetry 95 93 94 Oxygen Delivery Method Sepsis Recent Fever Within 48 Hours Sepsis New/Unexplained Change in Mental Status Sepsis Action Taken by Nursing Laboratory Data 01/13/23 21:06 01/13/23 21:06 Lab Results 01/13/23 01/13/23 01/13/23 Range/Units 21:06 21:06 21:06 WBC 15.77 H (4.8-10.8) K/ul RBC 3.79 L (4.20-5.40) M/uL Hgb 12.3 (12.0-16.0) g/dl Hct 36.1 L (37.0-47.0) % MCV 95.3 (80.0-100.0) fL MCH 32.5 (25.0-34.0) pg MCHC 34.1 (32.0-36.0) g/dL RDW Std Deviation 41.8 (36.4-46.3) fL RDW Coeff of Sandra 12.0 (11.5-14.5) % Plt Count 444 H (130-400) K/uL MPV 9.8 (9.4-12.4) fL Immature Gran % (Auto) 0.5 % Neut % (Auto) 74.9 % Lymph % (Auto) 15.1 % [place] % (Auto) 7.8 % Eos % (Auto) 1.3 % Baso % (Auto) 0.4 % Neut # (Auto) 11.81 H (1.40-6.50) K/uL Lymph # (Auto) 2.38 (1.2-3.4) K/uL [place] # (Auto) 1.23 H (0.11-0.59) K/uL Eos # (Auto) 0.21 (0-0.50) K/uL Baso # (Auto) 0.06 (0-0.2) K/uL Immature Gran # (Auto) 0.08 (0.01-0.20) K/uL PT (9.0-12.0) Seconds INR (0.9-1.1) VBG pH (7.36-7.41) VBG pCO2 (38-50) mmHg VBG pO2 mmHg VBG HCO3 mmol/L VBG O2 Saturation % VBG Base Excess mEq/L Sodium 134 L (136-145) mmol/L Potassium 4.2 (3.5-5.1) mmol/L Chloride 100 (98-107) mmol/L Carbon Dioxide 26 (21-32) mmol/L Anion Gap 8 (3-11) BUN 17 (6-23) mg/dl Creatinine 0.86 (0.6-1.2) mg/dl Est Cr Clr Drug Dosing 59.0 ml/min Est GFR ( Amer) 75.0 ml/min Est GFR (Non-Af Amer) 64.7 ml/min BUN/Creatinine Ratio 19.8 (10-20) Glucose 121 H (70-99(Fasting)) mg/dl Lactate (0.4-2.0) mmol/L Calcium 9.4 (8.6-10.3) mg/dl Magnesium 2.2 (1.7-2.4) mg/dl Total Bilirubin 0.4 (0.2-1.0) mg/dl Direct Bilirubin 0.0 (0-0.2) mg/dl AST 28 (13-39) U/L ALT 16 (7-52) U/L Alkaline Phosphatase 149 H (34-104) U/L Troponin I High Sens 10.3 (0-14) pg/ml Total Protein 7.2 (6.0-8.3) gm/dl Albumin 4.1 (3.4-5.0) gm/dl Procalcitonin < 0.05 (0-0.5) ng/ml Urine Color Urine Appearance (Clear) Urine pH (4.5-7.5) Ur Specific [place] (1.000-1.030) Urine Protein (Negative) Urine Glucose (UA) (Negative) Urine Ketones (Negative) Urine Blood (Negative) Urine Nitrite (Negative) Urine Bilirubin (Negative) Urine Urobilinogen (Negative) Ur Leukocyte Esterase (Negative) Urine WBC (Auto) (0-5) /hpf Urine RBC (Auto) (0-4) /hpf U Hyaline Cast (Auto) (0-5) /lpf U Epithel Cells (Auto) (0-5) /lpf Urine Bacteria (Auto) (Negative) Urine Yeast Salicylates (3.0-30) mg/dl 01/13/23 01/13/23 01/13/23 Range/Units 21:23 21:23 21:23 WBC (4.8-10.8) K/ul RBC (4.20-5.40) M/uL Hgb (12.0-16.0) g/dl Hct (37.0-47.0) % MCV (80.0-100.0) fL MCH (25.0-34.0) pg MCHC (32.0-36.0) g/dL RDW Std Deviation (36.4-46.3) fL RDW Coeff of Sandra (11.5-14.5) % Plt Count (130-400) K/uL MPV (9.4-12.4) fL Immature Gran % (Auto) % Neut % (Auto) % Lymph % (Auto) % [place] % (Auto) % Eos % (Auto) % Baso % (Auto) % Neut # (Auto) (1.40-6.50) K/uL Lymph # (Auto) (1.2-3.4) K/uL [place] # (Auto) (0.11-0.59) K/uL Eos # (Auto) (0-0.50) K/uL Baso # (Auto) (0-0.2) K/uL Immature Gran # (Auto) (0.01-0.20) K/uL PT 10.9 (9.0-12.0) Seconds INR 1.0 (0.9-1.1) VBG pH (7.36-7.41) VBG pCO2 (38-50) mmHg VBG pO2 mmHg VBG HCO3 mmol/L VBG O2 Saturation % VBG Base Excess mEq/L Sodium (136-145) mmol/L Potassium (3.5-5.1) mmol/L Chloride (98-107) mmol/L Carbon Dioxide (21-32) mmol/L Anion Gap (3-11) BUN (6-23) mg/dl Creatinine (0.6-1.2) mg/dl Est Cr Clr Drug Dosing ml/min Est GFR ( Amer) ml/min Est GFR (Non-Af Amer) ml/min BUN/Creatinine Ratio (10-20) Glucose (70-99(Fasting)) mg/dl Lactate 1.1 (0.4-2.0) mmol/L Calcium (8.6-10.3) mg/dl Magnesium (1.7-2.4) mg/dl Total Bilirubin (0.2-1.0) mg/dl Direct Bilirubin (0-0.2) mg/dl AST (13-39) U/L ALT (7-52) U/L Alkaline Phosphatase (34-104) U/L Troponin I High Sens (0-14) pg/ml Total Protein (6.0-8.3) gm/dl Albumin (3.4-5.0) gm/dl Procalcitonin (0-0.5) ng/ml Urine Color Urine Appearance (Clear) Urine pH (4.5-7.5) Ur Specific [place] (1.000-1.030) Urine Protein (Negative) Urine Glucose (UA) (Negative) Urine Ketones (Negative) Urine Blood (Negative) Urine Nitrite (Negative) Urine Bilirubin (Negative) Urine Urobilinogen (Negative) Ur Leukocyte Esterase (Negative) Urine WBC (Auto) (0-5) /hpf Urine RBC (Auto) (0-4) /hpf U Hyaline Cast (Auto) (0-5) /lpf U Epithel Cells (Auto) (0-5) /lpf Urine Bacteria (Auto) (Negative) Urine Yeast Salicylates < 3.0 L (3.0-30) mg/dl 01/13/23 01/13/23 Range/Units 21:23 22:00 WBC (4.8-10.8) K/ul RBC (4.20-5.40) M/uL Hgb (12.0-16.0) g/dl Hct (37.0-47.0) % MCV (80.0-100.0) fL MCH (25.0-34.0) pg MCHC (32.0-36.0) g/dL RDW Std Deviation (36.4-46.3) fL RDW Coeff of Sandra (11.5-14.5) % Plt Count (130-400) K/uL MPV (9.4-12.4) fL Immature Gran % (Auto) % Neut % (Auto) % Lymph % (Auto) % [place] % (Auto) % Eos % (Auto) % Baso % (Auto) % Neut # (Auto) (1.40-6.50) K/uL Lymph # (Auto) (1.2-3.4) K/uL [place] # (Auto) (0.11-0.59) K/uL Eos # (Auto) (0-0.50) K/uL Baso # (Auto) (0-0.2) K/uL Immature Gran # (Auto) (0.01-0.20) K/uL PT (9.0-12.0) Seconds INR (0.9-1.1) VBG pH 7.38 (7.36-7.41) VBG pCO2 51 H (38-50) mmHg VBG pO2 27 mmHg VBG HCO3 30 mmol/L VBG O2 Saturation < 60.0 % VBG Base Excess 3.9 mEq/L Sodium (136-145) mmol/L Potassium (3.5-5.1) mmol/L Chloride (98-107) mmol/L Carbon Dioxide (21-32) mmol/L Anion Gap (3-11) BUN (6-23) mg/dl Creatinine (0.6-1.2) mg/dl Est Cr Clr Drug Dosing ml/min Est GFR ( Amer) ml/min Est GFR (Non-Af Amer) ml/min BUN/Creatinine Ratio (10-20) Glucose (70-99(Fasting)) mg/dl Lactate (0.4-2.0) mmol/L Calcium (8.6-10.3) mg/dl Magnesium (1.7-2.4) mg/dl Total Bilirubin (0.2-1.0) mg/dl Direct Bilirubin (0-0.2) mg/dl AST (13-39) U/L ALT (7-52) U/L Alkaline Phosphatase (34-104) U/L Troponin I High Sens (0-14) pg/ml Total Protein (6.0-8.3) gm/dl Albumin (3.4-5.0) gm/dl Procalcitonin (0-0.5) ng/ml Urine Color Yellow Urine Appearance Cloudy A (Clear) Urine pH 6.5 (4.5-7.5) Ur Specific [place] 1.011 (1.000-1.030) Urine Protein 1+ H (Negative) Urine Glucose (UA) Negative (Negative) Urine Ketones Negative (Negative) Urine Blood 3+ H (Negative) Urine Nitrite Negative (Negative) Urine Bilirubin Negative (Negative) Urine Urobilinogen Negative (Negative) Ur Leukocyte Esterase 1+ H (Negative) Urine WBC (Auto) 5-10 H (0-5) /hpf Urine RBC (Auto) 10-30 H (0-4) /hpf U Hyaline Cast (Auto) 5-10 H (0-5) /lpf U Epithel Cells (Auto) 20-30 H (0-5) /lpf Urine Bacteria (Auto) Negative (Negative) Urine Yeast Not Reportable Salicylates (3.0-30) mg/dl Imaging Data Radiologist's Impression: Head CT 01/13/23 21:04 Exam(s): CT HEAD Without Contrast EXAM: CT Head Without Intravenous Contrast CLINICAL HISTORY: Reason for exam: altered mental status. TECHNIQUE: Axial computed tomography images of the head/brain without intravenous contrast. Automated exposure control was utilized for the study. A dose lowering technique was utilized adhering to the principles of ALARA. COMPARISON: No relevant prior studies available. FINDINGS: No acute intracranial hemorrhage. No midline shift or mass effect. The territorial roth-white matter differentiation is maintained throughout. Age-related cerebral volume loss. Periventricular and subcortical white matter hypoattenuation, consistent with chronic microangiopathy. The visualized orbits appear grossly unremarkable. The calvarium is intact. The visualized paranasal sinuses and mastoid air cells are grossly clear. IMPRESSION: No acute intracranial hemorrhage, midline shift, or mass effect. Electronically signed by: Delfin Decker MD 01/13/23 21:45 PM Discharge Plan Visit Data Chief Complaint: Altered Mental Status Stated Complaint: ALTERED ED Provider: Billie Palacios Discharge Problem: AMS (altered mental status) Forms Stand Alone Forms: My [facility] [place] [employer] Prescriptions Prescriptions: No Action multivitamin Tablet 1 tab PO DAILY levothyroxine 175 mcg tablet 175 mcg PO DAILY acetaminophen [Tylenol Extra Strength] 500 mg Tablet 500 mg PO Q6H PRN (Reason: Fever Or Pain) calcium carbonate 400 mg calcium (1,000 mg) Tablet,Chewable 800 mg PO DIRECTED PRN (Reason: .heartburn) naproxen sodium 220 mg Tablet 440 mg PO BID PRN (Reason: Pain) docusate sodium 100 mg Capsule 100 mg PO BID clotrimazole 1 % Cream 1 applic TOPICAL BID Rx Instructions: Until clear for rash escitalopram oxalate 10 mg tablet 10 mg PO DAILY diclofenac sodium 1 % Gel 2 g TOPICAL QID cholecalciferol (vitamin D3) [Vitamin D3] 50 mcg (2,000 unit) Tablet 50 mcg PO DAILY melatonin 10 mg Tablet 10 mg PO HS Myrbetriq 50 mg tablet extended release 24 hr 50 mg PO DAILY PreserVision AREDS-2 250-90-40-1 mg Capsule 1 tab PO BID Rx Instructions: softgel Prevagen 1 tab PO DAILY Referrals Referrals: Marshall Zavala DO [Primary Care Provider] -
[2023-01-13 21:31] LABS: Basophils # (auto) 0.06 K/uL (0-0.2); Basophils % (auto) 0.4 %; Eosinophils # (auto) 0.21 K/uL (0-0.50); Eosinophils % (auto) 1.3 %; Hematocrit (blood only) 36.1 % (37.0-47.0); Hemoglobin 12.3 g/dl (12.0-16.0); Immature Granulocytes # (auto) 0.08 K/uL (0.01-0.20); Immature Granulocytes % (auto) 0.5 %; Lymphocytes # (auto) 2.38 K/uL (1.2-3.4); Lymphocytes % (auto) 15.1 %; Mean Corpuscular Hemoglobin 32.5 pg (25.0-34.0); Mean Corpuscular Hgb Conc 34.1 g/dL (32.0-36.0); Mean Corpuscular Volume 95.3 fL (80.0-100.0); Mean Platelet Volume 9.8 fL (9.4-12.4); Monocytes # (auto) 1.23 K/uL (0.11-0.59); Monocytes % (auto) 7.8 %; Neutrophils # (auto) 11.81 K/uL (1.40-6.50); Neutrophils % (auto) 74.9 %; Platelet Count 444 K/uL (130-400); RDW Standard Deviation 41.8 fL (36.4-46.3); Red Blood Count 3.79 M/uL (4.20-5.40); White Blood Count 15.77 K/ul (4.8-10.8)
[2023-01-13 21:40] LABS: Base Excess VBG 3.9 mEq/L; HCO3 VBG 30 mmol/L; Oxygen Saturation VBG < 60.0 %; PCO2 VBG 51 mmHg (38-50); PO2 VBG 27 mmHg; pH VBG 7.38 (7.36-7.41)
--- NOTE | 2023-01-13 21:46 | CT Scan Report ---
Exam(s): CT HEAD Without Contrast EXAM: CT Head Without Intravenous Contrast CLINICAL HISTORY: Reason for exam: altered mental status. TECHNIQUE: Axial computed tomography images of the head/brain without intravenous contrast. Automated exposure control was utilized for the study. A dose lowering technique was utilized adhering to the principles of ALARA. COMPARISON: No relevant prior studies available. FINDINGS: No acute intracranial hemorrhage. No midline shift or mass effect. The territorial roth-white matter differentiation is maintained throughout. Age-related cerebral volume loss. Periventricular and subcortical white matter hypoattenuation, consistent with chronic microangiopathy. The visualized orbits appear grossly unremarkable. The calvarium is intact. The visualized paranasal sinuses and mastoid air cells are grossly clear. IMPRESSION: No acute intracranial hemorrhage, midline shift, or mass effect. Electronically signed by: Delfin Decker MD 01/13/23 21:45 PM
[2023-01-13 21:52] LABS: Albumin Level 4.1 gm/dl (3.4-5.0); BUN Creatinine Ratio 19.8 (10-20); Bilirubin,Total 0.4 mg/dl (0.2-1.0); Calcium 9.4 mg/dl (8.6-10.3); Est GFR (Non-African American) 64.7 ml/min; Magnesium 2.2 mg/dl (1.7-2.4); Potassium 4.2 mmol/L (3.5-5.1); Total Protein 7.2 gm/dl (6.0-8.3)
[2023-01-13 21:58] LABS: Troponin I High Sensitivity 10.3 pg/ml (0-14)
[2023-01-13 22:12] LABS: Prothrombin Time 10.9 Seconds (9.0-12.0)
[2023-01-13 22:19] LABS: Appearance Urine Cloudy (Clear); Bacteria Urine Automated Negative (Negative); Bilirubin Urine Negative (Negative); Blood Urine 3+ (Negative); Color Urine Yellow; Epithelial Cell Urine Auto 20-30 /lpf (0-5); Glucose Urine UA Negative (Negative); Ketones Urine Negative (Negative); Leukocyte Esterase Urine 1+ (Negative); Nitrite Urine Negative (Negative); Protein Urine 1+ (Negative); Specific Gravity Urine 1.011 (1.000-1.030); Urobilinogen Urine Negative (Negative); pH Urine 6.5 (4.5-7.5)
--- NOTE | 2023-01-14 02:34 | History & Physical Report ---
Date of Service January 14, 2023 Assessment & Plan (1) AMS (altered mental status): (2) Tachycardia: (3) Rib fractures: (4) NPH (normal pressure hydrocephalus): (5) Proximal weakness of extremity: (6) Hypothyroidism: (7) UTI (urinary tract infection): (8) Urinary incontinence: (9) Anxiety: Plan Normal pressure hydrocephalus- The patient had been admitted from 01/01-01/07/2023 after referral from her outpatient physician, and neurologist who felt that the patient probably had N PH. The patient was treated for urinary tract infection at last visit She was noted to have improvement in functioning after LP was performed at last visit The daughter tells me that the patient was told by physicians at [facility] that once her urinary tract infection is cleared, she will need to have a drain placed for a few days, to determine if a MARKET GARDEN WORKER shunt would be appropriate treatment. Patient did have a CT head, CT of cervical, thoracic and lumbar spine, and MRI of brain, which were negative at last visit Patient will be admitted to monitored bed. Intellectual decline- Manning to be part of normal pressure hydrocephalus Imaging studies negative as noted above Pansensitive E. coli UTI- On urine culture from 01/01/2023 Follow repeat urinalysis and urine culture to verify that it is cleared Nss+ KCl 20 mEq at 100 mils per hour Urinary incontinence- Adams catheter was placed at [facility] and will continue for now Verify Finish treatment of UTI Hyponatremia- Sodium 128 on admission last visit, presently is 134 Follow serially History of Present Illness Chief Complaint: The patient was referred to the emergency department from [facility] rehab, due to concerns regarding altered mentation noted by the daughter, after patient had been to and from [facility] today, after being seen around 7 PM this evening by her daughter Primary Care Provider: Marshall Zavala DO The patient is a 77-year-old female with a past medical history including ambulatory dysfunction, low back pain, urinary incontinence, heart murmur, acute hyponatremia, anxiety, acute metabolic encephalopathy, insomnia, osteoarthritis, and hypothyroidism. She presents to the emergency department due to daughter's concerns regarding not being herself, and appearing more confused than baseline after returning from [facility] today. Allergies Allergy/AdvReac Type Severity Reaction Status Date / Time No Known Allergies Allergy Mild 0 Verified 01/14/23 02:16 Home Medications Medication Instructions Recorded Confirmed Type cholecalciferol (vitamin D3) 50 50 mcg PO DAILY 01/01/23 01/14/23 History mcg (2,000 unit) tablet (Vitamin D3) diclofenac sodium 1 % topical gel 2 g topical QID PRN Pain 01/01/23 01/14/23 History escitalopram oxalate 10 mg tablet 10 mg PO DAILY 01/01/23 01/14/23 History levothyroxine 175 mcg tablet 175 mcg PO DAILY 01/01/23 01/14/23 History multivitamin 1 tab PO DAILY 01/01/23 01/14/23 History acetaminophen 325 mg tablet 650 mg PO QID PRN Pain 01/14/23 01/14/23 History (Tylenol) baclofen 10 mg tablet 5 mg PO TID 01/14/23 01/14/23 History calcium carbonate 500 mg calcium 500 mg PO TID PRN Acid Reflux 01/14/23 01/14/23 History (1,250 mg) chewable tablet docusate sodium 100 mg capsule 100 mg PO BID 01/14/23 01/14/23 History enoxaparin 30 mg/0.3 mL 30 mg subcut DAILY 01/14/23 01/14/23 History subcutaneous syringe (Lovenox) hydroxyzine HCl 10 mg tablet 10 mg PO Q6 PRN Anxiety 01/14/23 01/14/23 History lidocaine 5 % topical patch 2 patch topical DAILY 01/14/23 01/14/23 History (Lidoderm) magnesium hydroxide 400 mg/5 mL 30 ml PO DAILY PRN Constipation 01/14/23 01/14/23 History oral suspension (Milk of Magnesia) melatonin 3 mg tablet 9 mg PO HS 01/14/23 01/14/23 History naproxen 500 mg tablet 500 mg PO BID PRN Pain 01/14/23 01/14/23 History nystatin 100,000 unit/gram topical 1 applic topical BID 01/14/23 01/14/23 History powder ondansetron HCl 4 mg tablet 4 mg PO Q4 PRN Nausea 01/14/23 01/14/23 History sennosides 8.6 mg-docusate sodium 1 tab-cap PO .QLUNCH PRN 01/14/23 01/14/23 History 50 mg tablet (Senokot-S) Constipation Past Med/Surg History Medical History (Updated 01/14/23 @ 01:17 by Billie Palacios MD) Anxiety Balance problem Dry eye syndrome Glaucoma Hypothyroidism Memory problem Osteoarthritis Overactive bladder Urinary incontinence Surgical History (Updated 12/09/20 @ 10:23 by Zoran Chandler) History of ankle surgery Left History of cataract surgery RT/LEFT History of colonoscopy History of hysterectomy with unilateral oophorectomy History of right hip replacement History of wisdom tooth extraction Family History Other No family history of adverse response to anesthesia Social History Smoking Status: Former smoker Second Hand Exposure: No; Hx Alcohol Use: No Hx Substance Use: No Preferred Language: Jamaican Communication Ability: Impaired Mottler Machine Feeder Required: No Beliefs That Will Affect Care: None marital status: Current Living Situation: Spouse Current Living Situation Comment: was at [facility] for about a month left friday Feels Safe at Home: Yes and Declines to Answer Assistive Devices: Walker and Wheelchair Physical Exam Physical Exam: The patient is lethargic, sleeps a lot, and her daughter provides the primary HPI and review of systems information Results & Data Results & Data Vital Signs (Past 12 Hours) Vital Signs Temp Pulse Pulse Resp BP Pulse Ox O2 Del Method 01/14/23 00:00 94 01/13/23 23:45 93 01/13/23 23:31 114 H 95 01/13/23 23:31 123/84 01/13/23 23:30 115 H 23 98 01/13/23 23:15 120 H 95 01/13/23 23:02 97/76 L 01/13/23 23:02 13 01/13/23 22:30 127/101 H 01/13/23 22:28 124 H 22 01/13/23 22:15 119 H 21 01/13/23 22:06 114 H 13 95 01/13/23 22:06 104/53 L 01/13/23 22:00 99 H 27 H 96 01/13/23 21:45 107 H 18 96 01/13/23 21:39 19 01/13/23 21:15 112 H 18 01/13/23 21:00 102 H 19 01/13/23 20:45 104 H 18 97 01/13/23 20:43 96 H 18 96 01/13/23 21:38 Room Air 01/13/23 20:46 96 H 01/13/23 20:40 104 H 96 Room Air 01/13/23 20:40 36.9 C 104 H 18 140/54 L 97 Room Air Laboratory Results Laboratory Results WBC 15.77 K/ul (4.8-10.8) H 01/13/23 21:06 RBC 3.79 M/uL (4.20-5.40) L 01/13/23 21:06 Hgb 12.3 g/dl (12.0-16.0) 01/13/23 21:06 Hct 36.1 % (37.0-47.0) L 01/13/23 21:06 MCV 95.3 fL (80.0-100.0) 01/13/23 21:06 MCH 32.5 pg (25.0-34.0) 01/13/23 21:06 MCHC 34.1 g/dL (32.0-36.0) 01/13/23 21:06 RDW Std Deviation 41.8 fL (36.4-46.3) 01/13/23 21:06 RDW Coeff of Sandra 12.0 % (11.5-14.5) 01/13/23 21:06 Plt Count 444 K/uL (130-400) H 01/13/23 21:06 MPV 9.8 fL (9.4-12.4) 01/13/23 21:06 Immature Gran % (Auto) 0.5 % 01/13/23 21:06 Neut % (Auto) 74.9 % 01/13/23 21:06 Lymph % (Auto) 15.1 % 01/13/23 21:06 [place] % (Auto) 7.8 % 01/13/23 21:06 Eos % (Auto) 1.3 % 01/13/23 21:06 Baso % (Auto) 0.4 % 01/13/23 21:06 Neut # (Auto) 11.81 K/uL (1.40-6.50) H 01/13/23 21:06 Lymph # (Auto) 2.38 K/uL (1.2-3.4) 01/13/23 21:06 [place] # (Auto) 1.23 K/uL (0.11-0.59) H 01/13/23 21:06 Eos # (Auto) 0.21 K/uL (0-0.50) 01/13/23 21:06 Baso # (Auto) 0.06 K/uL (0-0.2) 01/13/23 21:06 Immature Gran # (Auto) 0.08 K/uL (0.01-0.20) 01/13/23 21: PT 10.9 Seconds (9.0-12.0) 01/13/23 21:23 INR 1.0 (0.9-1.1) 01/13/23 21:23 VBG pH 7.38 (7.36-7.41) 01/13/23: VBG pCO2 51 mmHg (38-50) H 01/13/23 21: VBG pO2 27 mmHg 01/13/23 21: VBG HCO3 30 mmol/L 01/13/23 21: VBG O2 Saturation < 60.0 % 01/13/23 21:23 VBG Base Excess 3.9 mEq/L 01/13/23 21:23 Sodium 134 mmol/L (136-145) L 01/13/23 21:06 Potassium 4.2 mmol/L (3.5-5.1) 01/13/23 21:06 Chloride 100 mmol/L (98-107) 01/13/23 21:06 Carbon Dioxide 26 mmol/L (21-32) 01/13/23 21:06 Anion Gap 8 (3-11) 01/13/23 21:06 BUN 17 mg/dl (6-23) 01/13/23 21:06 Creatinine 0.86 mg/dl (0.6-1.2) 01/13/23 21:06 Est Cr Clr Drug Dosing 59.0 ml/min 01/13/23 21:06 Est GFR ( Amer) 75.0 ml/min 01/13/23 21:06 Est GFR (Non-Af Amer) 64.7 ml/min 01/13/23 21:06 BUN/Creatinine Ratio 19.8 (10-20) 01/13/23 21:06 Glucose 121 mg/dl (70-99(Fasting)) H 01/13/23 21:06 Lactate 1.1 mmol/L (0.4-2.0) 01/13/23 21:23 Calcium 9.4 mg/dl (8.6-10.3) 01/13/23 21:06 Magnesium 2.2 mg/dl (1.7-2.4) 01/13/23 21:06 Total Bilirubin 0.4 mg/dl (0.2-1.0) 01/13/23 21:06 Direct Bilirubin 0.0 mg/dl (0-0.2) 01/13/23 21:06 AST 28 U/L (13-39) 01/13/23 21:06 ALT 16 U/L (7-52) 01/13/23 21:06 Alkaline Phosphatase 149 U/L (34-104) H 01/13/23 21:06 Troponin I High Sens 10.3 pg/ml (0-14) 01/13/23 21:06 Total Protein 7.2 gm/dl (6.0-8.3) 01/13/23 21:06 Albumin 4.1 gm/dl (3.4-5.0) 01/13/23 21:06 Procalcitonin < 0.05 ng/ml (0-0.5) 01/13/23 21:06 Urine Color Yellow 01/13/23 22:00 Urine Appearance Cloudy (Clear) A 01/13/23 22:00 Urine pH 6.5 (4.5-7.5) 01/13/23 22:00 Ur Specific [place] 1.011 (1.000-1.030) 01/13/23 22:00 Urine Protein 1+ (Negative) H 01/13/23 22:00 Urine Glucose (UA) Negative (Negative) 01/13/23 22:00 Urine Ketones Negative (Negative) 01/13/23 22:00 Urine Blood 3+ (Negative) H 01/13/23 22:00 Urine Nitrite Negative (Negative) 01/13/23 22:00 Urine Bilirubin Negative (Negative) 01/13/23 22:00 Urine Urobilinogen Negative (Negative) 01/13/23 22:00 Ur Leukocyte Esterase 1+ (Negative) H 01/13/23 22:00 Urine WBC (Auto) 5-10 /hpf (0-5) H 01/13/23 22:00 Urine RBC (Auto) 10-30 /hpf (0-4) H 01/13/23 22:00 U Hyaline Cast (Auto) 5-10 /lpf (0-5) H 01/13/23 22:00 U Epithel Cells (Auto) 20-30 /lpf (0-5) H 01/13/23 22:00 Urine Bacteria (Auto) Negative (Negative) 01/13/23 22:00 Urine Yeast Not Reportable 01/13/23 22:00 Salicylates < 3.0 mg/dl (3.0-30) L 01/13/23 21:23 SARS-CoV-2, RNA, NAAT NEGATIVE (NEGATIVE) 01/14/23 01:[address] 01/13/23 21:04 Exam(s): CT HEAD Without Contrast EXAM: CT Head Without Intravenous Contrast CLINICAL HISTORY: Reason for exam: altered mental status. TECHNIQUE: Axial computed tomography images of the head/brain without intravenous contrast. Automated exposure control was utilized for the study. A dose lowering technique was utilized adhering to the principles of ALARA. COMPARISON: No relevant prior studies available. FINDINGS: No acute intracranial hemorrhage. No midline shift or mass effect. The territorial roth-white matter differentiation is maintained throughout. Age-related cerebral volume loss. Periventricular and subcortical white matter hypoattenuation, consistent with chronic microangiopathy. The visualized orbits appear grossly unremarkable. The calvarium is intact. The visualized paranasal sinuses and mastoid air cells are grossly clear. IMPRESSION: No acute intracranial hemorrhage, midline shift, or mass effect. Electronically signed by: Delfin Dekcer MD 01/13/23 21:45 PM Code Status & VTE Plan Code Status full code VTE Prophylaxis Plan VTE Prophylaxis will be ordered: Yes PG Care Time/CCT Total # of Minutes Spent Total Time Spent with Patient: Total time spent is greater than 50% in coordination of care (as documented) at patient's floor/unit and/or counseling patient: Coding Level of Care Code 35359 INT INP/OBS CARE 3/75MIN Diagnoses AMS (altered mental status) R41.82 Tachycardia R00.0 Rib fractures S22.49XA NPH (normal pressure hydrocephalus) G91.2 Proximal weakness of extremity M62.89 Hypothyroidism E03.9 UTI (urinary tract infection) N39.0 Urinary incontinence R32 Anxiety F41.9
[2023-01-14] MEDS ORDERED: hydrOXYzine HCl 10 MG TAB PO PRN (03:31)
[2023-01-14] MEDS ORDERED: NAPROXEN 250 MG TAB PO PRN (03:31)
[2023-01-14] MEDS ORDERED: DOCUSATE SODIUM/SENNA 50/8.6MG TAB PO PRN (03:31)
[2023-01-14] MEDS ORDERED: MAGNESIUM HYDROXIDE SUSP 30 ML UDC PO PRN (03:31)
[2023-01-14] MEDS ORDERED: ONDANSETRON 4 MG OD TAB PO PRN (03:36)
[2023-01-14] MEDS ORDERED: CALCIUM CARBONATE 500 MG CHEWABLE TAB PO PRN (03:37)
[2023-01-14] MEDS ORDERED: NSS + 20MEQ KCL 20 MEQ/1,000 ML BAG IV SCH (04:00)
[2023-01-14 04:57] LABS: Basophils # (auto) 0.06 K/uL (0-0.2); Basophils % (auto) 0.4 %; Eosinophils # (auto) 0.23 K/uL (0-0.50); Eosinophils % (auto) 1.5 %; Hematocrit (blood only) 34.7 % (37.0-47.0); Hemoglobin 12.1 g/dl (12.0-16.0); Immature Granulocytes # (auto) 0.08 K/uL (0.01-0.20); Immature Granulocytes % (auto) 0.5 %; Lymphocytes # (auto) 3.23 K/uL (1.2-3.4); Lymphocytes % (auto) 21.2 %; Mean Corpuscular Hemoglobin 32.8 pg (25.0-34.0); Mean Corpuscular Hgb Conc 34.9 g/dL (32.0-36.0); Mean Platelet Volume 9.8 fL (9.4-12.4); Monocytes # (auto) 1.33 K/uL (0.11-0.59); Monocytes % (auto) 8.7 %; Neutrophils % (auto) 67.7 %; Platelet Count 471 K/uL (130-400); RDW Coefficient of Variation 11.9 % (11.5-14.5); RDW Standard Deviation 41.6 fL (36.4-46.3); Red Blood Count 3.69 M/uL (4.20-5.40); White Blood Count 15.23 K/ul (4.8-10.8)
[2023-01-14 05:08] LABS: BUN Creatinine Ratio 19.2 (10-20); Calcium 9.4 mg/dl (8.6-10.3); Creatinine Clr Calc Pharmacy 69.5 ml/min; Est GFR (African American) 91.4 ml/min; Est GFR (Non-African American) 78.9 ml/min; Phosphorus 3.9 mg/dl (2.5-4.9); Potassium 4.8 mmol/L (3.5-5.1)
[2023-01-14] MEDS: LEVOTHYROXINE SODIUM 175 MCG TABLET PO SCH (06:44)
--- NOTE | 2023-01-14 07:27 | XRay Report ---
XR chest 1V portable CLINICAL HISTORY: Sepsis. COMPARISON STUDY: Chest radiograph January 01, 2023. FINDINGS: Lung volumes are mildly diminished. Lungs are clear. There is no pneumothorax or pleural ef fusion. Cardiac size is normal. Mediastinal contours are normal. There is no evidence for pulmonary e xiao. Osteoarthritis of the bilateral glenohumeral joints is incidentally noted. IMPRESSION: No acute cardiopulmonary findings. ACT 112: Negative or not required by law. Electronically signed by: Eliud Chakraborty M.D. 01/14/2023 7:26 AM
[2023-01-14] MEDS: ESCITALOPRAM OXALATE 10 MG TAB PO SCH (08:50)
[2023-01-14] MEDS: DOCUSATE SODIUM 100 MG CAP PO SCH ×3 (08:50→21:01)
[2023-01-14] MEDS: CHOLECALCIFEROL 1,000 UNITS 25 MCG TAB PO SCH (08:50)
[2023-01-14] MEDS: ENOXAPARIN INJ 30 MG/0.3 ML SYR SQ SCH (08:50)
[2023-01-14] MEDS: MULTIVITAMIN TAB PO SCH ×2 (08:51→09:01)
[2023-01-14] MEDS ORDERED: BACLOFEN 10 MG TAB PO SCH (09:00)
[2023-01-14] MEDS: ACETAMINOPHEN 325 MG TAB PO PRN (09:51)
[2023-01-14] MEDS ORDERED: OLANZapine 5 MG TABLET PO ONE (09:58)
--- NOTE | 2023-01-14 12:53 | Electrocardiogram Report ---
Test Reason : Blood Pressure : / mmHG Vent. Rate : 091 BPM Atrial Rate : 091 BPM P-R Int : 132 ms QRS Dur : 074 ms QT Int : 352 ms P-R-T Axes : 062 -06 027 degrees QTc Int : 432 ms Normal sinus rhythm with sinus arrhythmia Poor R wave progression, consider anterior NE vs. lead placement vs. LVH Abnormal ECG When compared with ECG of 01-JAN-2023 21:19, No significant change was found Confirmed by Michelet Ang ([id number]) on 01/14/2023 12:52:22 PM Referred By: REFERRED SELF Confirmed By:Michelet Ang
--- NOTE | 2023-01-14 13:38 | Neurology Consultation ---
Date of Consultation January 14, 2023 Assessment & Plan (1) NPH (normal pressure hydrocephalus): (2) AMS (altered mental status): Plan 77-year-old female with probable normal pressure hydrocephalus based on available history, recent MRI and CT findings, and reported improvement in gait with high-volume lumbar puncture completed during [facility]. It also sounds like she was seen by neurosurgery at [facility] yesterday and there are plans to proceed with a FLOORING SALES MANAGER shunt in to address NPH, on January 27. I agree that based on available information, treatment of NPH with FLOORING SALES MANAGER shunt seems appropriate for this patient. However, she is currently confused, encephalopathic, which I believe may be related to a combination of urinary tract infection, and underlying evolving dementia. There is no indication of an additional acute neurologic process at this time in this patient. Continue treatment of urinary tract infection, continue supportive medical care, follow hyponatremia, appears to be improved. Her recently completed lumbar puncture did not reveal any evidence of infection, at least at that time. I see no reason for a repeat LP currently. Further, her clinical presentation is not consistent with seizures. Therefore, I see no reason to pursue an EEG at this time. If her mental status does not improve with supportive medical care, treatment of UTI, would recommend obtaining a repeat brain MRI. History of Present Illness Reason for Consultation: Normal pressure hydrocephalus, altered mental status Requesting Physician: Dr. Toribio Attending Physician: David Toribio History of Present Illness The patient is a 77-year-old female with a history of recently diagnosed normal pressure hydrocephalus. She was seen on January 03, 2023 by the [facility]'s neurologist, Dr. Wheatley for progressive functional decline, in particular walking difficulty. A brain MRI at that time have revealed findings suggestive of normal pressure hydrocephalus. The patient was also noted to have a urinary tract infection which confounded her assessment, she did have some confusion at that time. A high-volume lumbar puncture was completed and it appeared as if her gait was less magnetic. There was also improvement in walking speed at that time. She was apparently discharged with instructions to follow-up with neurosurgery at [facility] for further evaluation and treatment of normal pressure hydrocephalus. Looks like she had also been seen previously by Dr. Primo Lu, local [facility] neurology, just prior to her admission. The patient presented to the emergency department yesterday, after an assessment at [facility] for placement of a FLOORING SALES MANAGER shunt. Patient has been increasingly confused. She is apparently scheduled for a shunt on January 27. She had been sent from [facility], back to [facility], for further evaluation of her persistent progressive altered mental status. It looks like she has a persistent leukocytosis. She is mildly hyponatremic. Urinalysis completed yesterday appears suggestive of infection which is apparently an ongoing problem, and perhaps not completely treated since her last evaluation in the hospital. A follow-up CT of the head completed yesterday was negative for hemorrhage or acute process. The patient has been agitated and confused in the context of this recent hospitalization/emergency department stay. She is on one-to-one observation. She was given Zyprexa earlier this morning, prior to my assessment of her. Allergies Allergy/AdvReac Type Severity Reaction Status Date / Time No Known Allergies Allergy Mild 0 Verified 01/14/23 02:16 Home Medications Medication Instructions Recorded Confirmed Type cholecalciferol (vitamin D3) 50 50 mcg PO DAILY 01/01/23 01/14/23 History mcg (2,000 unit) tablet (Vitamin D3) diclofenac sodium 1 % topical gel 2 g topical QID PRN Pain 01/01/23 01/14/23 History escitalopram oxalate 10 mg tablet 10 mg PO DAILY 01/01/23 01/14/23 History levothyroxine 175 mcg tablet 175 mcg PO DAILY 01/01/23 01/14/23 History multivitamin 1 tab PO DAILY 01/01/23 01/14/23 History acetaminophen 325 mg tablet 650 mg PO QID PRN Pain 01/14/23 01/14/23 History (Tylenol) baclofen 10 mg tablet 5 mg PO TID 01/14/23 01/14/23 History calcium carbonate 500 mg calcium 500 mg PO TID PRN Acid Reflux 01/14/23 01/14/23 History (1,250 mg) chewable tablet docusate sodium 100 mg capsule 100 mg PO BID 01/14/23 01/14/23 History enoxaparin 30 mg/0.3 mL 30 mg subcut DAILY 01/14/23 01/14/23 History subcutaneous syringe (Lovenox) hydroxyzine HCl 10 mg tablet 10 mg PO Q6 PRN Anxiety 01/14/23 01/14/23 History lidocaine 5 % topical patch 2 patch topical DAILY 01/14/23 01/14/23 History (Lidoderm) magnesium hydroxide 400 mg/5 mL 30 ml PO DAILY PRN Constipation 01/14/23 01/14/23 History oral suspension (Milk of Magnesia) melatonin 3 mg tablet 9 mg PO HS 01/14/23 01/14/23 History naproxen 500 mg tablet 500 mg PO BID PRN Pain 01/14/23 01/14/23 History nystatin 100,000 unit/gram topical 1 applic topical BID 01/14/23 01/14/23 History powder ondansetron HCl 4 mg tablet 4 mg PO Q4 PRN Nausea 01/14/23 01/14/23 History sennosides 8.6 mg-docusate sodium 1 tab-cap PO .QLUNCH PRN 01/14/23 01/14/23 Hi story 50 mg tablet (Senokot-S) Constipation Patient History Medical History (Updated 01/14/23 @ 01:17 by Billie Palacios MD) Anxiety Balance problem Dry eye syndrome Glaucoma Hypothyroidism Memory problem Osteoarthritis Overactive bladder Urinary incontinence Surgical History (Updated 12/09/20 @ 10:23 by Zoran Chandler) History of ankle surgery Left History of cataract surgery RT/LEFT History of colonoscopy History of hysterectomy with unilateral oophorectomy History of right hip replacement History of wisdom tooth extraction Family History Other No family history of adverse response to anesthesia Social History Smoking Status: Former smoker Second Hand Exposure: No; Hx Alcohol Use: No Hx Substance Use: No Preferred Language: Bulgarian Communication Ability: Impaired Film Printer Required: No Beliefs That Will Affect Care: None marital status: Current Living Situation: Jail Current Living Situation Comment: [facility] Feels Safe at Home: Yes and Declines to Answer Assistive Devices: Walker and Wheelchair Review of Systems Review of Systems: Unobtainable due to cognitive status and Unobtainable due to reduced consciousness Exam (Neuro) Constitutional: + altered mental status and + frail appearing Cardiovascular: Vessels: no carotid bruit Neurologic: Oriented to:: negative Person, Place or Time Memory: negative Short Term Intact or Remote Intact Attention: negative Span Intact or Concentration Intact Speech Fluency: Dysfluency Fund of Knowledge: negative Current Events or Past History Cranial Nerves: Normal II, III, IV, , V, VII, VIII, IX, X, XI and XII Motor Strength: Normal Lower Extremities and Normal Upper Extremities Muscle Bulk/Involuntary Movements: No Involuntary Movements; negative Muscle Atrophy Deep Tendon Reflexes: Rt Triceps: 2+, Lt Triceps: 2+, Rt Biceps: 2+, Lt Biceps: 2+, Rt Brachioradialis: 2+, Lt Brachioradialis: 2+, Rt Patellar: 2+, Lt Patellar: 2+, Rt Ankle: 1+ and Lt Ankle: 1+ Special Tests: negative Babinski Present Details: Sensation and coordination cannot be assessed due to altered mental status. Gait cannot be assessed due to altered mental status. Results & Data Vital Signs (Past 12 Hours) Vital Signs Temp Pulse Resp BP BP Pulse Ox O2 Del Method 01/14/23 11:00 37 C 114 H 21 114/75 95 Room Air 01/14/23 07:20 36.6 C 112 H 16 121/70 97 Room Air 01/14/23 06:55 37.3 C 122 H 18 161/84 H 96 Room Air 01/14/23 04:31 18 132/87 96 01/14/23 04:30 95 01/14/23 04:29 94 Laboratory Results WBC 15.23, hemoglobin 12.1, hematocrit 34.7, platelet count 471, sodium 135, potassium 4.8, BUN 14, creatinine 0.73, glucose 114, calcium 9.4, magnesium 2.2, AST 28, ALT 16 CSF analysis from January 03, 2023, clear, colorless, no xanthochromia, 0 WBC, 0 RBC, CSF protein 35.1, glucose 66 Diagnostic Findings I independently reviewed the CT of the head completed yesterday as well as MRI of the brain completed January 01. PG Care Time/CCT Total # of Minutes Spent Total Time Spent with Patient: Total time spent is greater than 50% in coordination of care (as documented) at patient's floor/unit and/or counseling patient: 80 minutes Coding Level of Care Code 94261 INT INP/OBS CARE 3/75MIN Diagnoses NPH (normal pressure hydrocephalus) G91.2 AMS (altered mental status) R41.82
[2023-01-14] MEDS ORDERED: LORATADINE 10 MG TAB PO ONE (16:02)
[2023-01-14] MEDS ORDERED: MELATONIN 3 MG TAB PO SCH (21:00)
[2023-01-15] MEDS: ACETAMINOPHEN 325 MG TAB PO PRN (02:02)
[2023-01-15] MEDS: LEVOTHYROXINE SODIUM 175 MCG TABLET PO SCH (05:47)
[2023-01-15 06:38] LABS: Basophils # (auto) 0.04 K/uL (0-0.2); Basophils % (auto) 0.4 %; Eosinophils # (auto) 0.19 K/uL (0-0.50); Eosinophils % (auto) 1.9 %; Hematocrit (blood only) 32.4 % (37.0-47.0); Hemoglobin 10.9 g/dl (12.0-16.0); Immature Granulocytes # (auto) 0.05 K/uL (0.01-0.20); Immature Granulocytes % (auto) 0.5 %; Lymphocytes # (auto) 2.02 K/uL (1.2-3.4); Mean Corpuscular Hgb Conc 33.6 g/dL (32.0-36.0); Mean Platelet Volume 9.9 fL (9.4-12.4); Monocytes % (auto) 10.9 %; Neutrophils # (auto) 6.71 K/uL (1.40-6.50); Neutrophils % (auto) 66.3 %; Platelet Count 426 K/uL (130-400); RDW Coefficient of Variation 12.1 % (11.5-14.5); RDW Standard Deviation 42.3 fL (36.4-46.3); Red Blood Count 3.41 M/uL (4.20-5.40); White Blood Count 10.11 K/ul (4.8-10.8)
[2023-01-15 08:08] LABS: Albumin Level 3.6 gm/dl (3.4-5.0); BUN Creatinine Ratio 16.9 (10-20); Calcium 9.1 mg/dl (8.6-10.3); Creatinine Clr Calc Pharmacy 63.2 ml/min; Est GFR (African American) 85.7 ml/min; Magnesium 2.3 mg/dl (1.7-2.4); Phosphorus 3.9 mg/dl (2.5-4.9); Potassium 4.6 mmol/L (3.5-5.1)
[2023-01-15] MEDS: CHOLECALCIFEROL 1,000 UNITS 25 MCG TAB PO SCH (08:33)
[2023-01-15] MEDS: MULTIVITAMIN TAB PO SCH (08:33)
[2023-01-15] MEDS: ENOXAPARIN INJ 30 MG/0.3 ML SYR SQ SCH (08:33)
[2023-01-15] MEDS: DOCUSATE SODIUM 100 MG CAP PO SCH (08:33)
[2023-01-15] MEDS: ESCITALOPRAM OXALATE 10 MG TAB PO SCH (08:33)
--- NOTE | 2023-01-15 10:32 | Neurology Progress Note ---
Date of Service January 15, 2023 Assessment & Plan (1) NPH (normal pressure hydrocephalus): (2) Dementia: (3) AMS (altered mental status): Plan 77-year-old female with persistent encephalopathy, recent hospitalization for urinary tract infection, imaging potentially suggestive of normal pressure hydrocephalus with perhaps partial benefit with high-volume lumbar puncture completed at our institution previously. Has been seen by Dr. Schofiled, neurosurgeon at [facility], who apparently suggested placement of a temporary lumbar drain to assess for any significant clinical improvement. If she were to have improvement in gait, would then consider placement of a INSPECTOR WREATH chirag nt for suspected normal pressure hydrocephalus. However, patient remains confused with altered mental status at this point in time, I wonder if she may have an evolving, underlying, dementia. Her current urine culture is negative. Her delirium may be multifactorial and at least in part related to her recent urinary tract infection, underlying dementia, and recurrent hospitalization, recent stay at [facility], etc., not in her usual home environment. Placement of a lumbar drain at [facility], would likely need to be placed on hold, at least until her acute confusion has resolved. Furthermore, if she does have a significant, evolving, underlying dementia, she may not be an appropriate candidate for INSPECTOR WREATH shunting. Continue supportive medical care. I do not see a need for another brain MRI or other neurologic testing such as repeat lumbar puncture or EEG at this point in time. Admission and Anticipated Discharge Date Admission Date: January 14, 2023 Subjective Follow-up regarding altered mental status, NPH The patient remains confused this morning, she is on one-to-one observation, she has a tendency for agitation. She had been given a dose of Zyprexa yesterday while in the emergency department. Does not look like she has received any additional sedatives or neuroleptic medications since that time. Her baclofen has been discontinued as well. She had been admitted to the [facility] 2 weeks ago for further evaluation of subacute decline in gait, declining cognitive function, metabolic encephalopathy, UTI. She had previously been evaluated by Eduin Harris neurologist, for gait dysfunction, recent imaging potentially suggestive of normal pressure hydrocephalus, although perhaps not classic for this condition. She was seen by Eduin Mendoza [facility]'s neurology hospitalist on January 03. NPH was suspected based on her MRI appearance and clinical history. She underwent high-volume lumbar puncture on January 03 and there is some documentation in the medical record regarding some improvement in her gait. She was apparently seen by Dr. Schofield, neurosurgery at [facility] who has suggested placement of a lumbar drain, with consideration of possible INSPECTOR WREATH shunting depending on response. She had been at [facility] for rehabilitation, but was sent back to the [facility] on January 13 due to altered mental status. It is unclear, however, to what extent her previous altered mental status, from her last hospitalization, truly improved. She remains modestly delirious this morning, with continued one-to-one observation. She is oriented to "[facility]" and day of the week. She becomes agitated easily. Her attention is modestly reduced. She exhibited very poor delayed recall testing, 0 out of 3 objects. She was unable to provide any reliable information pertaining to her current illness. Review of Systems Review of Systems: Unobtainable due to cognitive status Results & Data Vital Signs (Past 12 Hours) Vital Signs Temp Pulse Pulse Resp BP Pulse Ox O2 Del Method 01/15/23 06:01 107 H 01/15/23 07:15 Room Air 01/15/23 06:55 36.9 C 94 H 18 141/80 H 95 Room Air 01/15/23 01:34 36.9 C 102 H 18 144/82 H 94 Room Air Laboratory Results WBC 10.11, hemoglobin 10.9, hematocrit 32.4, platelet count 426, sodium 138, potassium 4.6, BUN 13, creatinine 0.77, glucose 105, magnesium 2.3. No growth on urine culture. Diagnostic Findings I rereviewed the previous brain MRI, completed January 02, 2023. The study does reveal generalized atrophy with associated ventriculomegaly that is perhaps slightly out of proportion to the degree of generalized atrophy. There is also prominent increased T2/FLAIR periventricular signal along the lateral ventricles which may be consistent with transependymal CSF flow although chronic small vessel ischemic disease may appear similar. There appears to be an element of bilateral hippocampal atrophy as well, perhaps greater on the left. Exam (Neuro) Constitutional: + frail appearing Neurologic: Oriented to:: Person, Place and Time ("Friday") Memory: negative Short Term Intact or Remote Intact Attention: negative Span Intact or Concentration Intact Speech Aphasia: negative Aphasia Fund of Knowledge: Vocabulary; negative Current Events or Past History Cranial Nerves: Normal II, III, IV, , V, VII, VIII, IX, X, XI and XII Motor Strength: Normal Lower Extremities and Normal Upper Extremities Muscle Bulk/Involuntary Movements: No Involuntary Movements Coordination: negative Finger-Nose Abnormal Details: Gait could not be safely tested. PG Care Time/CCT Total # of Minutes Spent Total Time Spent with Patient: Total time spent is greater than 50% in coordination of care (as documented) at patient's floor/unit and/or counseling patient:4 40 min Coding Level of Care Code 19033 SUB INP/OBS CARE 2/35MIN Diagnoses NPH (normal pressure hydrocephalus) G91.2 Dementia F03.90 AMS (altered mental status) R41.82
[2023-01-15] MEDS ORDERED: OLANZapine 5 MG TABLET PO ONE (14:59)
--- NOTE | 2023-01-24 18:22 | Discharge Summary ---
Date of Service January 15, 2023 Admission HPI Per Admitting Provider The patient is a 77-year-old female with a past medical history including ambulatory dysfunction, low back pain, urinary incontinence, heart murmur, acute hyponatremia, anxiety, acute metabolic encephalopathy, insomnia, osteoarthritis, and hypothyroidism. She presents to the emergency department due to daughter's concerns regarding not being herself, and appearing more confused than baseline after returning from [facility] today. Principal Diagnosis normal pressure hydrocephalus Discharge Exam Constitutional WD/WN, vitals as above Patient is sitting in bed in no acute distress. Discharge Data Allergies Allergy/AdvReac Type Severity Reaction Status Date / Time No Known Allergies Allergy Mild 0 Verified 01/14/23 02:16 Consultations 01/14/23 01:12 ED Decision to Admit Stat 01/14/23 07:51 Consult Neurology Routine Ordered Studies 01/13/23 21:04 CT head/brain wo con Stat Hospital Course (1) Dementia: Normal pressure hydrocephalus- On admission: The patient had been admitted from 01/01-01/07/2023 after referral from her outpatient physician, and neurologist who felt that the patient probably had NPH. The patient was treated for urinary tract infection at last visit She was noted to have improvement in functioning after LP was performed at last visit The daughter tells me that the patient was told by physicians at [facility] that once her urinary tract infection is cleared, she will need to have a drain placed for a few days, to determine if a BENCH [employer]OL MAKER shunt would be appropriate treatment. Patient did have a CT head, CT of cervical, thoracic and lumbar spine, and MRI of brain, which were negative at last visit Patient will be admitted to monitored bed. At discharge: 77-year-old female with persistent encephalopathy, recent hospitalization for urinary tract infection, imaging potentially suggestive of normal pressure hydrocephalus with perhaps partial benefit with high-volume lumbar puncture completed at our institution previously. Has been seen by Dr. Schofield, neurosurgeon at [facility], who apparently suggested placement of a temporary lumbar drain to assess for any significant clinical improvement. If she were to have improvement in gait, would then consider placement of a BENCH TOOL MAKER shunt for suspected normal pressure hydrocephalus. However, patient remains confused with altered mental status at this point in time, I wonder if she may have an evolving, underlying, dementia. Her current urine culture is negative. Her delirium may be multifactorial and at least in part related to her recent urinary tract infection, underlying dementia, and recurrent hospitalization, recent stay at [facility] rehab, etc., not in her usual home environment. Placement of a lumbar drain at [facility], would likely need to be placed on hold, at least until her acute confusion has resolved. Furthermore, if she does have a significant, evolving, underlying dementia, she may not be an appropriate candidate for BENCH TOOL MAKER shunting. Patient was discharged on 01/15, will hold baclofen Intellectual decline- Pomaria to be part of normal pressure hydrocephalus Imaging studies negative as noted above Pansensitive E. coli UTI- On urine culture from 01/01/2023 this was treated Urinary incontinence- Adams catheter was placed at [facility] and will continue for now Hyponatremia- Sodium 128 on admission last visit, presently is 134 Total Time Total Time Spent Total Time Spent (In Minutes): 32 Discharge Plan Discharge Items Patient Disposition: Transfer Inpatient Rehab Fac Reason For Visit: ALTERED MENTAL STATUS Discharge Diagnosis: altered mental status Activity: Resume your previous activity Non-emergency contact: Primary Care Provider Call non-emergency contact if: you have any medication questions Follow-up/Referrals: Marshall Zavala DO [Primary Care Provider] - Diet: Heart Healthy Addtl Attending Provider Instructions: will recommend holding baclofen. Pending Studies at Discharge: No Stand-Alone Forms: [facility] Patient informed of condition?: Yes DNR: No Discharge Level of Care: Acute rehab Communicable Disease: No Discharge Prognosis: Stable Lines: None Urinary Catheter: Yes Medications and DC Order Prescriptions: Continued multivitamin Tablet 1 tab PO DAILY levothyroxine 175 mcg tablet 175 mcg PO DAILY escitalopram oxalate 10 mg tablet 10 mg PO DAILY diclofenac sodium 1 % Gel 2 g TOPICAL QID PRN (Reason: Pain) cholecalciferol (vitamin D3) [Vitamin D3] 50 mcg (2,000 unit) Tablet 50 mcg PO DAILY acetaminophen [Tylenol] 325 mg Tablet 650 mg PO QID PRN (Reason: Pain) ondansetron HCl 4 mg Tablet 4 mg PO Q4 PRN (Reason: Nausea) sennosides-docusate sodium [Senokot-S] 8.6-50 mg Tablet 1 tab-cap PO .QLUNCH PRN (Reason: Constipation) melatonin 3 mg Tablet 9 mg PO HS magnesium hydroxide [Milk of Magnesia] 400 mg/5 mL Suspension 30 ml PO DAILY PRN (Reason: Constipation) lidocaine [Lidoderm] 5 % Adhesive Patch,Medicated 2 patch TOPICAL DAILY Rx Instructions: leave on most painful area for up to 12 hrs, bilareral docusate sodium 100 mg Capsule 100 mg PO BID calcium carbonate 500 mg calcium (1,250 mg) Tablet,Chewable 500 mg PO TID PRN (Reason: Acid Reflux) nystatin 100,000 unit/gram Powder 1 applic TOPICAL BID Rx Instructions: APPLY TO BREAST naproxen 500 mg Tablet 500 mg PO BID PRN (Reason: Pain) enoxaparin [Lovenox] 30 mg/0.3 mL Syringe 30 mg SUBCUT DAILY Discontinued baclofen 10 mg Tablet 5 mg PO TID hydroxyzine HCl 10 mg Tablet 10 mg PO Q6 PRN (Reason: Anxiety) Discharge Orders: Discharge Order (Routine); Ordered 01/15/23 Ordered By: David Toribio Admission Data Admit Date/Time: 01/14/23 02:34 Attending Provider: David Toribio Admit Provider: Roosevelt Villarreal Primary Care Provider: Marshall Zavala Other Providers: Roosevelt Villarreal ; Tyler Preciado ; [facility],Health Coding Level of Care Code 51382 INP/OBS DISCH >30 MIN Diagnoses Dementia F03.90
== END 2023-01-15 17:17 ==
LOC: ED 20:28 → SUATTDRO 01-14 02:34 → EDINP 01-14 02:34 → INTOOBSV 01-14 02:34 → 2W 01-14 03:31

== ENCOUNTER 2023-04-01 02:54 | Inpatient (IN) ==
--- NOTE | 2023-04-01 04:33 | Emergency Department Note ---
Impression & Plan Acute subdural hematoma, Sepsis, Fall, Aspiration into airway Admit to the [facility] ED Provider Note NAME: BRIELLE TELLEZ AGE: 78 SEX: F ARRIVES VIA: Ambulance INFORMANT: EMS and the patient's daughter when she arrived at the bedside ED PROVIDER(S): Monica Bernard DO CHIEF COMPLAINT: Hypoxia PLAN: Disposition: Admit to the [facility] Condition: Guarded MEDICAL DECISION MAKING: This is a 78-year-old female patient from [facility] who fell earlier this evening. She then had an episode of emesis. There was concern for aspiration. She has now become tachycardic and hypoxic. EMS was called and she was transferred here. The patient was hypoxic on room air and required a nonrebreather to maintain O2 saturations greater than 90%. Triage Nursing notes reviewed and agree with them. External medical records were reviewed including those that accompanied her from [facility] Vital Signs: reviewed and remarkable for tachycardia Differential diagnosis: Sepsis, pneumonia, intracranial hemorrhage, skull fracture, C-spine injury ER treatment provided: Cardiac monitoring Supplemental oxygen IV normal saline bolus Diagnostics interpreted by me: ECG: Sinus tachycardia at [address] segment elevation or signs of ischemia. There is no ectopy. Cardiac Monitoring: Sinus tachycardia at 128 Laboratory studies: See below Imaging studies: As per stat rad CT scan of brain: See report CT scan of the cervical spine: See report Portable chest x-ray: As per my independent interpretation-there was some concern for a right lower lobe aspiration pneumonia. HPI: 78/F arrives for evaluation of hypoxia. Patient was found facedown on the floor around 715 last evening at [facility]. She was noted to have an abrasion to her nose and some blood on her lip. She was placed back in bed. A couple of hours later, the patient apparently had an episode of emesis. They were concerned she may have aspirated. Patient was then noted to be hypoxic and EMS was called and she was transferred here. Upon arrival here in the emergency department, the patient does require oxygen to support her oxygen saturation and is tachycardic. PAST MEDICAL HISTORY:See Below PAST SURGICAL HISTORY:See Below FAMILY HISTORY:See Below SOCIAL HISTORY:See Below HOME MEDICATIONS:See list ALLERGIES:None VITALS:See Below PHYSICAL EXAMINATION: HEENT: Head - normocephalic with an abrasion noted to the bridge of her nose. Pupils are equal, round, and reactive to light. Extraocular eye muscles are intact, and sclera are anicteric. Nose - moist nasal mucosa without discharge. Mouth - moist buccal mucosa. Oropharynx is nonerythematous and there is no tonsillar exudate or edema noted. Neck: Supple; no JVD or pain to palpation over the posterior cervical spine Heart: Tachycardic rate and regular rhythm there is a normal S1 and S2 with no murmurs, clicks, or gallops appreciated. Lungs: Clear to auscultation bilaterally with no wheezes, rales, or rhonchi. Abdomen: Soft, completely nontender, nondistended, with good bowel sounds. There are no palpable pulsatile masses or hepatosplenomegaly. There is no guarding, rigidity, or rebound noted. Extremities: No evidence of trauma. There are easily palpable peripheral pulses. Skin: warm and dry with good turgor and no rashes. Neuro: Patient is unresponsive to verbal and painful stimuli. She will not follow commands. ED COURSE: Times/Reassessments: 330 the patient was evaluated in room C10. A complete history and physical was performed. An order was placed for continuous cardiac monitoring. The patient was in a sinus tachycardia at a rate of 128. A twelve- lead EKG was obtained as described above. The patient was placed on supplemental oxygen as her room air saturation was low. A portable chest x-ray was performed. Patient had a septic work-up performed and started on IV antibiotics. Patient was bolused with IV normal saline solution. I spoke with the patient's daughter on the phone and made her aware of the situation. Once the patient's family arrived here in the emergency department, I spoke with them at the bedside and answered all questions. I confirmed with them that their wishes were to pursue comfort measures and not aggressively treat her intracranial hemorrhage. They were agreeable to treat the sepsis with IV antibiotics. Patient received additional IV crystalloid therapy-30 mls per kilogram. I discussed the case with the [facility] Hospitalist and they will evaluate for further management. Monica Bernard DO Past Med/Surg History Medical History (Updated 04/01/23 @ 07:08 by Monica Bernard DO) Anxiety Balance problem Dry eye syndrome DVT prophylaxis Glaucoma Heart murmur Hypothyroidism Low back pain Memory problem Osteoarthritis Overactive bladder Tachycardia Urinary incontinence Surgical History (Updated 12/09/20 @ 10:23 by Zoran Chandler) History of ankle surgery Left History of cataract surgery RT/LEFT History of colonoscopy History of hysterectomy with unilateral oophorectomy History of right hip replacement History of wisdom tooth extraction Family History Other No family history of adverse response to anesthesia Social History Smoking Status: Unknown if ever smoked Second Hand Exposure: No; Do You Dip or Chew Tobacco: No; Hx Alcohol Use: No Hx Substance Use: No Preferred Language: Divehi Communication Ability: Impaired Ict Sales Assistant Required: No Beliefs That Will Affect Care: None marital status: Current Living Situation: Skilled Nursing Current Living Situation Comment: [facility] Feels Safe at Home: Yes Assistive Devices: Walker and Wheelchair Allergies Allergies Allergy/AdvReac Type Severity Reaction Status Date / Time No Known Allergies Allergy Mild 0 Verified 01/14/23 02:16 Home Meds Home Medications Medication Instructions Recorded Confirmed cholecalciferol (vitamin D3) 50 50 mcg PO DAILY 01/01/23 01/14/23 mcg (2,000 unit) tablet (Vitamin D3) diclofenac sodium 1 % topical gel 2 g topical QID PRN Pain 01/01/23 01/14/23 escitalopram oxalate 10 mg tablet 10 mg PO DAILY 01/01/23 01/14/23 levothyroxine 175 mcg tablet 175 mcg PO DAILY 01/01/23 01/14/23 multivitamin 1 tab PO DAILY 01/01/23 01/14/23 acetaminophen 325 mg tablet 650 mg PO QID PRN Pain 01/14/23 01/14/23 (Tylenol) calcium carbonate 500 mg calcium 500 mg PO TID PRN Acid Reflux 01/14/23 01/14/23 (1,250 mg) chewable tablet docusate sodium 100 mg capsule 100 mg PO BID 01/14/23 01/14/23 enoxaparin 30 mg/0.3 mL 30 mg subcut DAILY 01/14/23 01/14/23 subcutaneous syringe (Lovenox) lidocaine 5 % topical patch 2 patch topical DAILY 01/14/23 01/14/23 (Lidoderm) magnesium hydroxide 400 mg/5 mL 30 ml PO DAILY PRN Constipation 01/14/23 01/14/23 oral suspension (Milk of Magnesia) melatonin 3 mg tablet 9 mg PO HS 01/14/23 01/14/23 naproxen 500 mg tablet 500 mg PO BID PRN Pain 01/14/23 01/14/23 nystatin 100,000 unit/gram topical 1 applic topical BID 01/14/23 01/14/23 powder ondansetron HCl 4 mg tablet 4 mg PO Q4 PRN Nausea 01/14/23 01/14/23 sennosides 8.6 mg-docusate sodium 1 tab-cap PO .QLUNCH PRN 01/14/23 01/14/23 50 mg tablet (Senokot-S) Constipation Results & Data (ED) Vital Signs Vital Signs - 24 hr 04/01/23 03:02 04/01/23 03:01 04/01/23 04:20 Temperature 37.3 C Temperature Source Axillary Pulse Rate 130 H 125 H Pulse Rate [Apical] 127 H Pulse Rhythm Regular Pulse Strength Normal Respiratory Rate 24 16 Respiratory Effort / Characteristics Non-Labored Spontaneous Respiratory Depth Normal Respiratory Pattern Regular Blood Pressure 141/99 H Blood Pressure [Left Arm] 170/100 H Blood Pressure Mean 113 Blood Pressure Mean [Left Arm] 123 Blood Pressure Position Lying Pulse Oximetry 94 100 Oxygen Delivery Method Non-rebreather Non-rebreather Oxygen Flow Rate 15 10 Sepsis Recent Fever Within 48 Hours No Sepsis New/Unexplained Change in Mental Status N/A Sepsis Action Taken by Nursing No Action Required 04/01/23 04:58 04/01/23 04:58 04/01/23 05:39 Temperature Temperature Source Pulse Rate 124 H Pulse Rate [Apical] 124 H 118 H Pulse Rhythm Pulse Strength Respiratory Rate 16 16 16 Respiratory Effort / Characteristics Respiratory Depth Respiratory Pattern Blood Pressure Blood Pressure [Left Arm] 173/95 H Blood Pressure Mean Blood Pressure Mean [Left Arm] 121 Blood Pressure Position Pulse Oximetry 99 99 99 Oxygen Delivery Method Non-rebreather Non-rebreather Non-rebreather Oxygen Flow Rate 10 10 7 Sepsis Recent Fever Within 48 Hours Sepsis New/Unexplained Change in Mental Status Sepsis Action Taken by Nursing 04/01/23 07:01 Temperature Temperature Source Pulse Rate 128 H Pulse Rate [Apical] Pulse Rhythm Pulse Strength Respiratory Rate Respiratory Effort / Characteristics Respiratory Depth Respiratory Pattern Blood Pressure Blood Pressure [Left Arm] Blood Pressure Mean Blood Pressure Mean [Left Arm] Blood Pressure Position Pulse Oximetry Oxygen Delivery Method Oxygen Flow Rate Sepsis Recent Fever Within 48 Hours Sepsis New/Unexplained Change in Mental Status Sepsis Action Taken by Nursing Laboratory Data 04/01/23 04:46 04/01/23 04:45 Lab Results 04/01/23 04/01/23 04/01/23 Range/Units 04:45 04:46 04:47 WBC 24.18 H (4.8-10.8) K/ul RBC 3.70 L (4.20-5.40) M/uL Hgb 11.5 L (12.0-16.0) g/dl Hct 35.2 L (37.0-47.0) % MCV 95.1 (80.0-100.0) fL MCH 31.1 (25.0-34.0) pg MCHC 32.7 (32.0-36.0) g/dL RDW Std Deviation 42.5 (36.4-46.3) fL RDW Coeff of Sandra 12.1 (11.5-14.5) % Plt Count 250 (130-400) K/uL MPV 10.1 (9.4-12.4) fL Immature Gran % (Auto) 0.5 % Neut % (Auto) 88.1 % Lymph % (Auto) 1.2 % [place] % (Auto) 10.0 % Eos % (Auto) 0.0 % Baso % (Auto) 0.2 % Neut # (Auto) 21.29 H (1.40-6.50) K/uL Lymph # (Auto) 0.28 L (1.2-3.4) K/uL [place] # (Auto) 2.43 H (0.11-0.59) K/uL Eos # (Auto) 0.00 (0-0.50) K/uL Baso # (Auto) 0.06 (0-0.2) K/uL Immature Gran # (Auto) 0.12 (0.01-0.20) K/uL Sodium 135 L (136-145) mmol/L Potassium 4.1 (3.5-5.1) mmol/L Chloride 98 (98-107) mmol/L Carbon Dioxide 30 (21-32) mmol/L Anion Gap 7 (3-11) BUN 21 (6-23) mg/dl Creatinine 0.70 (0.6-1.2) mg/dl Est Cr Clr Drug Dosing Not Reportable Est GFR ( Amer) 95.5 ml/min Est GFR (Non-Af Amer) 82.4 ml/min BUN/Creatinine Ratio 30.0 H (10-20) Glucose 136 H (70-99(Fasting)) mg/dl Lactate (0.4-2.0) mmol/L Calcium 9.0 (8.6-10.3) mg/dl Total Bilirubin 0.4 (0.2-1.0) mg/dl AST 21 (13-39) U/L ALT 9 (7-52) U/L Alkaline Phosphatase 109 H (34-104) U/L Total Protein 7.0 (6.0-8.3) gm/dl Albumin 4.0 (3.4-5.0) gm/dl Globulin 3.0 (2.5-4.0) gm/dl Albumin/Globulin Ratio 1.3 (0.9-2) Procalcitonin 0.12 (0-0.5) ng/ml SARS-CoV-2, RNA, NAAT (NEGATIVE) 04/01/23 04/01/23 Range/Units 04:54 05:30 WBC (4.8-10.8) K/ul RBC (4.20-5.40) M/uL Hgb (12.0-16.0) g/dl Hct (37.0-47.0) % MCV (80.0-100.0) fL MCH (25.0-34.0) pg MCHC (32.0-36.0) g/dL RDW Std Deviation (36.4-46.3) fL RDW Coeff of Sandra (11.5-14.5) % Plt Count (130-400) K/uL MPV (9.4-12.4) fL Immature Gran % (Auto) % Neut % (Auto) % Lymph % (Auto) % [place] % (Auto) % Eos % (Auto) % Baso % (Auto) % Neut # (Auto) (1.40-6.50) K/uL Lymph # (Auto) (1.2-3.4) K/uL [place] # (Auto) (0.11-0.59) K/uL Eos # (Auto) (0-0.50) K/uL Baso # (Auto) (0-0.2) K/uL Immature Gran # (Auto) (0.01-0.20) K/uL Sodium (136-145) mmol/L Potassium (3.5-5.1) mmol/L Chloride (98-107) mmol/L Carbon Dioxide (21-32) mmol/L Anion Gap (3-11) BUN (6-23) mg/dl Creatinine (0.6-1.2) mg/dl Est Cr Clr Drug Dosing Est GFR ( Amer) ml/min Est GFR (Non-Af Amer) ml/min BUN/Creatinine Ratio (10-20) Glucose (70-99(Fasting)) mg/dl Lactate 2.1 H* (0.4-2.0) mmol/L Calcium (8.6-10.3) mg/dl Total Bilirubin (0.2-1.0) mg/dl AST (13-39) U/L ALT (7-52) U/L Alkaline Phosphatase (34-104) U/L Total Protein (6.0-8.3) gm/dl Albumin (3.4-5.0) gm/dl Globulin (2.5-4.0) gm/dl Albumin/Globulin Ratio (0.9-2) Procalcitonin (0-0.5) ng/ml SARS-CoV-2, RNA, NAAT NEGATIVE (NEGATIVE) Administered Medications Discontinued Medications Sodium Chloride (Nss) 500 mls @ 999 mls/hr IV .Q31M ONE Stop: 04/01/23 05:13 Last Infusion: 04/01/23 05:28 Dose: 0 mls/hr Documented By: Admin: 04/01/23 04:55 Dose: 999 mls/hr Documented By: SANCHEZ Ampicillin Sodium/Sulbactam Sodium 3,000 mg/ Sodium Chloride 108 mls @ 200 mls/hr IV NOW STA; Protocol Stop: 04/01/23 05:15 Last Infusion: 04/01/23 06:10 Dose: 0 mls/hr Documented By: Admin: 04/01/23 05:34 Dose: 200 mls/hr Documented By: SANCHEZ Sodium Chloride (Nss 1000ml) 1,000 mls @ 999 mls/hr IV .Q1H1M ONE Stop: 04/01/23 06:36 Last Admin: 04/01/23 06:30 Dose: 999 mls/hr Documented By: EMB Imaging Data Radiologist's Impression: Cervical Spine CT 04/01/23 03:45 Exam(s): CT C SPINE EXAM: CT Cervical Spine Without Intravenous Contrast CLINICAL HISTORY: Reason for exam: Trauma. TECHNIQUE: Axial computed tomography images of the cervical spine without intravenous contrast. Automated exposure control was utilized for the study. A dose lowering technique was utilized adhering to the principles of ALARA. COMPARISON: No relevant prior studies available. FINDINGS: Vertebrae: Unremarkable. No acute fracture. Discs/spinal canal/neural foramina: No acute findings. No spinal canal stenosis. Soft tissues: Mild to moderate calcified atherosclerotic disease of the carotid bifurcations. Right MANUFACTURING LABORER shunt catheter in place. IMPRESSION: No evidence of acute cervical spine pathology. Electronically signed by: Radha Anderson MD 04/01/23 06:[address] 04/01/23 03:45 CR Exam(s): CT HEAD Without Contrast EXAM: CT Head Without Intravenous Contrast CLINICAL HISTORY: Reason for exam: Trauma. TECHNIQUE: Axial computed tomography images of the head/brain without intravenous contrast. Automated exposure control was utilized for the study. A dose lowering technique was utilized adhering to the principles of ALARA. COMPARISON: Comparison made to prior CT scan of the head from March 21, 2023. FINDINGS: Brain: There is an acute right subdural hematoma over the right frontal, temporal and parietal convexities extending over the right tentorium, anterior and posterior interhemispheric fissure, measuring 17 mm in maximal diameter and causing 14.75 mm of midline shift. There is a right parietal approach ventriculostomy shunt catheter in place with the distal tip in the decompressed right lateral ventricle. Moderate nonspecific white matter changes. Ventricles: Effacement of the right lateral ventricle. Mild to moderate left ventriculomegaly. Bones/joints: Unremarkable. No acute fracture. Soft tissues: Bilateral lens replacements. Sinuses: Unremarkable as visualized. No acute sinusitis. Mastoid air cells: Bilateral mastoid effusions. IMPRESSION: Acute right subdural hematoma measuring 17 mm in maximal diameter causing 14.75 mm of midline shift. Recommend neurosurgical consult for decompression. Communications: Verify Receipt Electronically signed by: Radha Anderson MD 04/01/23 06:10 AM Discharge Plan Visit Data Chief Complaint: Fall Stated Complaint: FALL/VOMITING w/ ASPIRATION ED Provider: Monica Bernard Discharge Problem: Acute subdural hematoma, Sepsis, Fall, Aspiration into airway Forms Stand Alone Forms: My [facility] Prescriptions Prescriptions: No Action multivitamin Tablet 1 tab PO DAILY levothyroxine 175 mcg tablet 175 mcg PO DAILY escitalopram oxalate 10 mg tablet 10 mg PO DAILY diclofenac sodium 1 % Gel 2 g TOPICAL QID PRN (Reason: Pain) cholecalciferol (vitamin D3) [Vitamin D3] 50 mcg (2,000 unit) Tablet 50 mcg PO DAILY acetaminophen [Tylenol] 325 mg Tablet 650 mg PO QID PRN (Reason: Pain) ondansetron HCl 4 mg Tablet 4 mg PO Q4 PRN (Reason: Nausea) sennosides-docusate sodium [Senokot-S] 8.6-50 mg Tablet 1 tab-cap PO .QLUNCH PRN (Reason: Constipation) melatonin 3 mg Tablet 9 mg PO HS magnesium hydroxide [Milk of Magnesia] 400 mg/5 mL Suspension 30 ml PO DAILY PRN (Reason: Constipation) lidocaine [Lidoderm] 5 % Adhesive Patch,Medicated 2 patch TOPICAL DAILY Rx Instructions: leave on most painful area for up to 12 hrs, bilareral docusate sodium 100 mg Capsule 100 mg PO BID calcium carbonate 500 mg calcium (1,250 mg) Tablet,Chewable 500 mg PO TID PRN (Reason: Acid Reflux) nystatin 100,000 unit/gram Powder 1 applic TOPICAL BID Rx Instructions: APPLY TO BREAST naproxen 500 mg Tablet 500 mg PO BID PRN (Reason: Pain) enoxaparin [Lovenox] 30 mg/0.3 mL Syringe 30 mg SUBCUT DAILY Referrals Referrals: Marshall Zavala DO [Outside Practitioners] -
[2023-04-01] MEDS ORDERED: SODIUM CHLORIDE 0.9% 500 ML IV ONE ×2 (04:43→05:37)
[2023-04-01] MEDS ORDERED: AMPICILLIN/SULBACTAM SOD 3,000 MG in 0.9 % SODIUM CHLORIDE 100 ML IV STA (04:43)
[2023-04-01 05:13] LABS: Hematocrit (blood only) 35.2 % (37.0-47.0); Hemoglobin 11.5 g/dl (12.0-16.0); Mean Corpuscular Hemoglobin 31.1 pg (25.0-34.0); Mean Corpuscular Hgb Conc 32.7 g/dL (32.0-36.0); Mean Corpuscular Volume 95.1 fL (80.0-100.0); Mean Platelet Volume 10.1 fL (9.4-12.4); Platelet Count 250 K/uL (130-400); RDW Coefficient of Variation 12.1 % (11.5-14.5); RDW Standard Deviation 42.5 fL (36.4-46.3); White Blood Count 24.18 K/ul (4.8-10.8)
[2023-04-01 05:22] LABS: Alanine Aminotransferase 9 U/L (7-52); Albumin Globulin Ratio 1.3 (0.9-2); Alkaline Phosphatase 109 U/L (34-104); Anion Gap 7 (3-11); Aspartate Aminotransferase 21 U/L (13-39); Bilirubin,Total 0.4 mg/dl (0.2-1.0); Blood Urea Nitrogen 21 mg/dl (6-23); Carbon Dioxide 30 mmol/L (21-32); Chloride 98 mmol/L (98-107); Est GFR (African American) 95.5 ml/min; Est GFR (Non-African American) 82.4 ml/min; Glucose 136 mg/dl (70-99(Fasting)); Potassium 4.1 mmol/L (3.5-5.1); Sodium 135 mmol/L (136-145)
[2023-04-01] MEDS ORDERED: SODIUM CHLORIDE 0.9% 1000ML 1,000 ML IV ONE (05:36)
[2023-04-01] MEDS ORDERED: SODIUM CHLORIDE 0.9% 500 ML IV SCH (05:45)
[2023-04-01 05:50] LABS: Basophils # (auto) 0.06 K/uL (0-0.2); Basophils % (auto) 0.2 %; Immature Granulocytes # (auto) 0.12 K/uL (0.01-0.20); Immature Granulocytes % (auto) 0.5 %; Lymphocytes # (auto) 0.28 K/uL (1.2-3.4); Lymphocytes % (auto) 1.2 %; Monocytes # (auto) 2.43 K/uL (0.11-0.59); Neutrophils # (auto) 21.29 K/uL (1.40-6.50); Neutrophils % (auto) 88.1 %
--- NOTE | 2023-04-01 06:11 | CT Scan Report ---
Exam(s): CT HEAD Without Contrast EXAM: CT Head Without Intravenous Contrast CLINICAL HISTORY: Reason for exam: Trauma. TECHNIQUE: Axial computed tomography images of the head/brain without intravenous contrast. Automated exposure control was utilized for the study. A dose lowering technique was utilized adhering to the principles of ALARA. COMPARISON: Comparison made to prior CT scan of the head from March 21, 2023. FINDINGS: Brain: There is an acute right subdural hematoma over the right frontal, temporal and parietal convexities extending over the right tentorium, anterior and posterior interhemispheric fissure, measuring 17 mm in maximal diameter and causing 14.75 mm of midline shift. There is a right parietal approach ventriculostomy shunt catheter in place with the distal tip in the decompressed right lateral ventricle. Moderate nonspecific white matter changes. Ventricles: Effacement of the right lateral ventricle. Mild to moderate left ventriculomegaly. Bones/joints: Unremarkable. No acute fracture. Soft tissues: Bilateral lens replacements. Sinuses: Unremarkable as visualized. No acute sinusitis. Mastoid air cells: Bilateral mastoid effusions. IMPRESSION: Acute right subdural hematoma measuring 17 mm in maximal diameter causing 14.75 mm of midline shift. Recommend neurosurgical consult for decompression. Communications: Verify Receipt Electronically signed by: Radha Anderson MD 04/01/23 06:10 AM
--- NOTE | 2023-04-01 06:19 | CT Scan Report ---
Exam(s): CT C SPINE EXAM: CT Cervical Spine Without Intravenous Contrast CLINICAL HISTORY: Reason for exam: Trauma. TECHNIQUE: Axial computed tomography images of the cervical spine without intravenous contrast. Automated exposure control was utilized for the study. A dose lowering technique was utilized adhering to the principles of ALARA. COMPARISON: No relevant prior studies available. FINDINGS: Vertebrae: Unremarkable. No acute fracture. Discs/spinal canal/neural foramina: No acute findings. No spinal canal stenosis. Soft tissues: Mild to moderate calcified atherosclerotic disease of the carotid bifurcations. Right SCRAP PREPARATION SUPERVISOR shunt catheter in place. IMPRESSION: No evidence of acute cervical spine pathology. Electronically signed by: Radha Anderson MD 04/01/23 06:17 AM
--- NOTE | 2023-04-01 07:18 | XRay Report ---
SINGLE VIEW CHEST CLINICAL HISTORY: Aspiration FINDINGS: An AP, portable, upright chest radiograph is compared to study dated 01/13/2023. A shunt cat heter traverses the right chest wall. The cardiomediastinal silhouette is top normal for projection n oting atherosclerotic calcification of the thoracic aorta. Chronic interstitial thickening is similar to previous. There is bibasilar scarring/atelectasis. No airspace consolidation or large pleural eff usion is identified. No pneumothorax is seen. The skeletal structures are osteopenic. The bony thorax is grossly intact. Advanced arthritic change is seen in the shoulders. IMPRESSION: No acute cardiopulmonary abnormality. ACT 112: Negative or not required by law. Electronically signed by: Bradnon Cespedes M.D. 04/01/2023 7:17 AM
--- NOTE | 2023-04-01 07:30 | History & Physical Report ---
Date of Service April 01, 2023 Assessment & Plan (1) Acute subdural hematoma: Plan: CT scan on presentation shows acute right subdural hematoma right measuring 17 mm and a 14.75 mm midline shift. ADJUNCT TEACHER shunt is visualized in place according to emergency room attending Dr. Bernard, family wishes for comfort care measures but does wish to proceed with treatment of possible sepsis. We will offer supportive care with hydration pain and anxiety control and if the patient stabilizes consideration of palliative care consultation (2) Sepsis: Plan: patient treated for sepsis on presentation with volume resuscitation and institution of Unasyn therapy after blood cultures were obtained. He will be challenging to think that sepsis occurred after the aspiration event preceding to her direct transfer to the ER subsequently consideration for alternate sources could be had which could include her ADJUNCT TEACHER shunt or urine. At this time we will collect a urine from her Adams catheter however her event is limiting her survivability and further exploration of other sources like tapping her ADJUNCT TEACHER shunt will be postponed at this time until we see if she stabilizes for the first 12 to 24 hours Plan counseling and discussion of palliative hospice care was taken to the bedside visit was 1 hour and 15 minutes History of Present Illness Primary Care Provider: Kirill Ocampo 78-year-old female was sent from care home facility after a fall patient had concern for aspiration after a period of emesis tachycardia hypoxia on scene. Patient hypoxia stabilized but on evaluation at the emergency room CT scan of the head revealed subdural hematoma with 1.4 cm midline shift. Patient previous has a ADJUNCT TEACHER shunt in place. Patient did have a leukocytosis and was volume resuscitated with crystalloid instituting Unasyn therapy patient has declining cognition and interaction family was brought to bedside and comfort care measures were decided with exception of antibiotics to treat possible infection. Patient was discharged from [facility] where she had her ADJUNCT TEACHER shunt placed due to normal pressure hydrocephalus Allergies Allergy/AdvReac Type Severity Reaction Status Date / Time No Known Allergies Allergy Mild 0 Verified 01/14/23 02:16 Home Medications Medication Instructions Recorded Confirmed Type cholecalciferol (vitamin D3) 50 50 mcg PO DAILY 01/01/23 01/14/23 History mcg (2,000 unit) tablet (Vitamin D3) diclofenac sodium 1 % topical gel 2 g topical QID PRN Pain 01/01/23 01/14/23 History escitalopram oxalate 10 mg tablet 10 mg PO DAILY 01/01/23 01/14/23 History levothyroxine 175 mcg tablet 175 mcg PO DAILY 01/01/23 01/14/23 History multivitamin 1 tab PO DAILY 01/01/23 01/14/23 History acetaminophen 325 mg tablet 650 mg PO QID PRN Pain 01/14/23 01/14/23 History (Tylenol) calcium carbonate 500 mg calcium 500 mg PO TID PRN Acid Reflux 01/14/23 01/14/23 History (1,250 mg) chewable tablet docusate sodium 100 mg capsule 100 mg PO BID 01/14/23 01/14/23 History enoxaparin 30 mg/0.3 mL 30 mg subcut DAILY 01/14/23 01/14/23 History subcutaneous syringe (Lovenox) lidocaine 5 % topical patch 2 patch topical DAILY 01/14/23 01/14/23 History (Lidoderm) magnesium hydroxide 400 mg/5 mL 30 ml PO DAILY PRN Constipation 01/14/23 01/14/23 History oral suspension (Milk of Magnesia) melatonin 3 mg tablet 9 mg PO HS 01/14/23 01/14/23 History naproxen 500 mg tablet 500 mg PO BID PRN Pain 01/14/23 01/14/23 History nystatin 100,000 unit/gram topical 1 applic topical BID 01/14/23 01/14/23 History powder ondansetron HCl 4 mg tablet 4 mg PO Q4 PRN Nausea 01/14/23 01/14/23 History sennosides 8.6 mg-docusate sodium 1 tab-cap PO .QLUNCH PRN 01/14/23 01/14/23 History 50 mg tablet (Senokot-S) Constipation Past Med/Surg History Medical History (Updated 04/01/23 @ 07:08 by Monica Bernard DO) Anxiety Balance problem Dry eye syndrome DVT prophylaxis Glaucoma Heart murmur Hypothyroidism Low back pain Memory problem Osteoarthritis Overactive bladder Tachycardia Urinary incontinence Surgical History (Updated 12/09/20 @ 10:23 by Zoran Chandler) History of ankle surgery Left History of cataract surgery RT/LEFT History of colonoscopy History of hysterectomy with unilateral oophorectomy History of right hip replacement History of wisdom tooth extraction Family History Other No family history of adverse response to anesthesia Social History (Reviewed 12/08/20 @ 22:47 by David Dodd Smoking Status: Unknown if ever smoked Second Hand Exposure: No; Do You Dip or Chew Tobacco: No; Hx Alcohol Use: No Hx Substance Use: No Preferred Language: Japanese Communication Ability: Unable Starting Sheet Tank 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 Required: No Beliefs That Will Affect Care: Jainism Jainism Beliefs: Religious marital status: Current Living Situation: Custodial Current Living Situation Comment: [facility] Assistive Devices: Walker and Wheelchair Review of Systems Review of Systems: pt is unresponsive to verbal stimuli, Physical Exam Physical Exam: patient unresponsive verbal stimuli does withdraw somewhat to pain cardiac exam is tachycardic with a systolic murmur lungs are clear but diminished neurologic does not have meaningful responses Results & Data Results & Data Vital Signs (Past 12 Hours) Vital Signs Temp Pulse Pulse Resp BP BP Pulse Ox 04/01/23 07:00 136 H 21 99 04/01/23 07:00 145/108 H 04/01/23 06:30 130 H 22 98 04/01/23 06:30 188/101 H 04/01/23 06:02 155/106 H 04/01/23 06:02 130 H 22 99 04/01/23 06:00 119 H 18 98 04/01/23 05:00 134 H 27 H 99 04/01/23 04:56 123 H 23 99 04/01/23 04:56 173/95 H 04/01/23 04:20 170/100 H 04/01/23 04:20 129 H 24 100 04/01/23 04:19 97 04/01/23 03:05 141/99 H 04/01/23 03:05 120 H 25 H 98 04/01/23 03:04 127 H 22 98 04/01/23 07:01 128 H 04/01/23 05:39 118 H 16 99 04/01/23 04:58 124 H 16 173/95 H 99 04/01/23 04:58 124 H 16 99 04/01/23 04:20 127 H 16 170/100 H 100 04/01/23 03:01 125 H 04/01/23 03:02 99.1 F 130 H 24 141/99 H 94 O2 Del Method O2 Flow Rate 04/01/23 07:00 04/01/23 07:00 04/01/23 06:30 04/01/23 06:30 04/01/23 06:02 04/01/23 06:02 07/11/23 06:00 04/01/23 05:00 04/01/23 04:56 04/01/23 04:56 04/01/23 04:20 04/01/23 04:20 04/01/23 04:19 04/01/23 03:05 04/01/23 03:05 04/01/23 03:04 04/01/23 07:01 04/01/23 05:39 Non-rebreather 7 04/01/23 04:58 Non-rebreather 10 04/01/23 04:58 Non-rebreather 10 04/01/23 04:20 Non-rebreather 10 04/01/23 03:01 04/01/23 03:02 Non-rebreather 15 Code Status & VTE Plan VTE Prophylaxis Plan VTE Prophylaxis will be ordered: No Reason for no VTE drug order: Contraindicated PG Care Time/CCT Total # of Minutes Spent Total Time Spent with Patient: Total time spent is greater than 50% in coordination of care (as documented) at patient's floor/unit and/or counseling patient: Coding Level of Care Code 34803 INT INP/OBS CARE 3/75MIN Diagnoses Acute subdural hematoma S06.5XAA Sepsis A41.9
[2023-04-01] MEDS ORDERED: ONDANSETRON INJ 2 MG/ML 2 ML VIAL IV PRN (08:24)
[2023-04-01] MEDS ORDERED: LORazepam 2 MG/1 ML VIAL IV PRN (08:24)
[2023-04-01] MEDS ORDERED: ACETAMINOPHEN 10MG/ML Custom 1,000 MG in EMPTY BAG 0 ML IV PRN (08:24)
[2023-04-01] MEDS ORDERED: METOPROLOL TARTRATE 1 MG/ML VIAL IV PRN (08:24)
[2023-04-01] MEDS ORDERED: ACETAMINOPHEN 1000 MG/100 ML IV IV PRN (08:33)
[2023-04-01] MEDS: SODIUM CHLORIDE 0.9% 1000ML 1,000 ML IV SCH ×2 (09:35→21:47)
[2023-04-01] MEDS: ACETAMINOPHEN 1,000 MG/100 ML VIAL IV PRN ×2 (10:45→20:43)
[2023-04-01] MEDS: AMPICILLIN/SULBACTAM SOD 3,000 MG in 0.9 % SODIUM CHLORIDE 100 ML IV SCH ×3 (12:48→23:12)
[2023-04-01] MEDS: MoRPHine SULFATE 2 MG/ML CARP IV PRN ×2 (14:48→19:24)
--- NOTE | 2023-04-01 17:54 | Electrocardiogram Report ---
Test Reason : Blood Pressure : / mmHG Vent. Rate : 124 BPM Atrial Rate : 124 BPM P-R Int : 140 ms QRS Dur : 066 ms QT Int : 308 ms P-R-T Axes : 071 017 037 degrees QTc Int : 442 ms Sinus tachycardia Right atrial enlargement Abnormal ECG When compared with ECG of 13-JAN-2023 20:40, No significant change was found Confirmed by Kevin Meneses ([id number]) on 04/01/2023 5:54:41 PM Referred By: REFERRED SELF Confirmed By:Amos Meneses
[2023-04-01] MEDS: LORazepam 2 MG/1 ML VIAL IV PRN (20:49)
[2023-04-02] MEDS: MoRPHine SULFATE 2 MG/ML CARP IV PRN ×6 (04:04→23:01)
[2023-04-02] MEDS: LORazepam 2 MG/1 ML VIAL IV PRN ×4 (04:28→23:01)
[2023-04-02] MEDS: AMPICILLIN/SULBACTAM SOD 3,000 MG in 0.9 % SODIUM CHLORIDE 100 ML IV SCH ×4 (05:26→23:01)
[2023-04-02] MEDS: ACETAMINOPHEN 1,000 MG/100 ML VIAL IV PRN (07:35)
[2023-04-02] MEDS: SODIUM CHLORIDE 0.9% 1000ML 1,000 ML IV SCH (10:07)
--- NOTE | 2023-04-02 11:27 | CT Scan Report ---
HEAD CT NONCONTRAST CT DOSE: 1250.21 mGy.cm HISTORY: Follow up subdural hematoma. TECHNIQUE: Multiaxial CT images of the head were performed without the use of intravenous contrast. A utomated exposure control was utilized for this study. A dose lowering technique was utilized adheri ng to the principles of ALARA. Comparison: Head CT 04/01/2023. Findings: The paranasal sinuses are clear. There are moderate bilateral mastoid effusions which have slightly progressed. A right parietal approach ventriculostomy catheter terminates at the midline. Th is remains unchanged. Trace intraventricular hemorrhage persists. This is best seen within the occipi nyasia horn of the left lateral ventricle on image 16. Right greater than left acute on chronic subdural hematomas are again noted. The right-sided subdural hematoma measures a maximal thickness of 13 mm, previously measuring 17 mm. The small left-sided subdural hematoma measures up to 5 mm. This remains unchanged. There is a small amount of subdural hemorrhage within the interhemispheric fissure and nereyda ng the tentorium. This is also unchanged. There is near complete effacement of the right lateral vent ricle with up to 6 mm of left midline shift. This has also improved. Impression: 1. Decrease in size in the acute on chronic right subdural hematoma as described above with slight im provement in the left midline shift. 2. A small acute on chronic left subdural hematoma remains unchanged. 3. Trace intraventricular hemorrhage is also unchanged. ACT 112: Negative or not required by law. Electronically signed by: Evans Prakash M.D. 04/02/2023 11:25 AM
--- NOTE | 2023-04-02 15:53 | Hospitalist Progress Note ---
Date of Service April 02, 2023 Assessment & Plan (1) Acute subdural hematoma: Plan: CT scan on presentation shows acute right subdural hematoma right measuring 17 mm and a 14.75 mm midline shift. WOOD HACKER shunt is visualized in place after discussion with family, family wishes for comfort care measures but does wish to proceed with treatment of possible sepsis. We will offer supportive care that we will stop hydration pain and anxiety control and if the patient stabilizes consideration of palliative care consultation (2) Sepsis: Plan: patient treated for sepsis on presentation with volume resuscitation and institution of Unasyn therapy after blood cultures were obtained. He will be challenging to think that sepsis occurred after the aspiration event preceding to her direct transfer to the ER subsequently consideration for alternate sources could be had which could include her WOOD HACKER shunt or urine. at this time will not actively treat any infections Admission and Anticipated Discharge Date Admission Date: April 01, 2023 Subjective pt is not responsive, some movement, reportedly in the afternoon was uncomfortable and increased med coverage, consider palliative care in one day Physical Exam Physical Exam: patient unresponsive verbal stimuli does withdraw somewhat to pain cardiac exam is tachycardic with a systolic murmur lungs are clear but diminished neurologic does not have meaningful responses Results & Data Results & Data Vital Signs (Past 12 Hours) Vital Signs Temp Pulse Pulse Resp BP Pulse Ox O2 Del Method 04/02/23 15:02 114 H 04/02/23 10:50 Oxymask 04/02/23 10:46 98.2 F 102 H 18 138/67 95 Oxymask 04/02/23 07:54 99.7 F H 119 H 16 148/79 H 92 Oxymask 04/02/23 07:10 108 H O2 Flow Rate 04/02/23 15:02 04/02/23 10:50 2 04/02/23 10:46 04/02/23 07:54 2 04/02/23 07:10 PG Care Time/CCT Total # of Minutes Spent Total Time Spent with Patient: Total time spent is greater than 50% in coordination of care (as documented) at patient's floor/unit and/or counseling patient: Coding Level of Care Code 19136 SUB INP/OBS CARE 2/35MIN Diagnoses Acute subdural hematoma S06.5XAA Sepsis A41.9
[2023-04-03] MEDS: LORazepam 2 MG/1 ML VIAL IV PRN ×2 (02:38→05:30)
[2023-04-03] MEDS: MoRPHine SULFATE 2 MG/ML CARP IV PRN ×7 (02:39→22:32)
[2023-04-03] MEDS: AMPICILLIN/SULBACTAM SOD 3,000 MG in 0.9 % SODIUM CHLORIDE 100 ML IV SCH ×4 (05:30→23:13)
--- NOTE | 2023-04-03 08:48 | Hospitalist Progress Note ---
Date of Service April 03, 2023 Assessment & Plan (1) Acute subdural hematoma: Plan: Had an unwitnessed fall at outside facility, with CT scan on presentation showing acute right subdural hematoma measuring 17 mm with 14.75 mm midline shift, with minimal improvement on repeat imaging. EQUAL OPPORTUNITY SPECIALIST shunt is visualized in place. After discussion with family and with Dr. Kirby, we will pursue comfort measures /supportive care at this time, save for continuing Abx as we await family arrival in the coming days. (2) Sepsis: Plan: Patient treated for sepsis on presentation with volume resuscitation and inst itution of Unasyn therapy after blood cultures were obtained. Possibly sepsis is due to aspiration event (hypoxic and had emesis on admission). WBC count worse today at 24.18. Have also considered alternate sources including her EQUAL OPPORTUNITY SPECIALIST shunt or urine. UA without bacteria or othersign of infection. Continue Unasyn for now as above, goals of comfort at this time. (3) NPH (normal pressure hydrocephalus): Plan: S/p EQUAL OPPORTUNITY SPECIALIST shunt. Admission and Anticipated Discharge Date Admission Date: April 01, 2023 Subjective Patient with some sinus tachycardia and near fever with temp 37.9C overnight. Patient herself does not respond meaningfully to questions. Family is at bedside and concerned about her being in pain when she wakes up, and also concerned about her potential quality of life in the future. Review of Systems Review of Systems: All systems reviewed & are unremarkable except as noted in Subjective Physical Exam Constitutional: WD/WN, vitals as above + ill appearing Respiratory: normal respiratory effort, lungs clear to auscultation Cardiovascular: RRR, no murmur, no edema Gastrointestinal (Abdomen): normal BS, abdomen soft Skin: no rashes, warm and dry Neurologic: patient arouses to painful stimuli only, not alert nor oriented Results & Data Results & Data Vital Signs (Past 12 Hours) Vital Signs Temp Pulse Pulse Resp BP Pulse Ox O2 Del Method 04/03/23 08:08 37.9 C H 102 H 22 161/77 H 96 Oxymask 04/03/23 06:58 111 H 04/02/23 23:14 102 H 04/02/23 22:16 Oxymask O2 Flow Rate 04/03/23 08:08 2 04/03/23 06:58 04/02/23 23:14 04/02/23 22:16 2 PG Care Time/CCT Total # of Minutes Spent Total Time Spent with Patient: Total time spent is greater than 50% in coordination of care (as documented) at patient's floor/unit and/or counseling patient: Coding Level of Care Code 91514 SUB INP/OBS CARE 2/35MIN Diagnoses Acute subdural hematoma S06.5XAA Sepsis A41.9 NPH (normal pressure hydrocephalus) G91.2
--- NOTE | 2023-04-03 09:21 | Palliative Care Consultation ---
Date of Consultation April 03, 2023 Assessment & Plan (1) Palliative care by specialist: Met with pt family. Provided overview of Palliative Medicine, a subspecialty that provides specialized medical care for people living with a serious illness by offering a focus on quality of life. Palliative Medicine is often conflated with hospice: I advised patient/family that Palliative and hospice can be partners but we are not the same. It is important to understand the difference so that we may be informed, and not afraid. Palliative Medicine works to improve QOL through reduction of symptom burden/more control over their illness, for both the patient and family. Palliative medicine clinicians are board certified, specially-trained and another member of the patient's medical care team. We often provide an extra layer of support because our care is based on the needs of the patient, not the prognosis; as such, it's appropriate at any age/advancing stage of a serious illness and can be provided along with curative treatment. Palliative Medicine clinicians are also trained in advanced communication methodologies, to facilitate complex discussions about advanced illness planning, which are needed to help assure that the treatment choices match the patient's goals, aka delivering Goal Concordant care. Finally, we discussed that hospice is a visiting nurse service that focuses on care delivered at the very end of life for patients with terminal illness, with life expectancy less than 6 month. (2) Advanced care planning/counseling discussion: I met with , dtr, son in law and close family friend face to face for over an hour, aprpox 70min at pt bedside. Advance illness planning conversations are conducted to review goals and expectations, support shared decision-making, and engage in disease specific advance care planning. This type of advance care planning is sometimes referred to as 'preparedness planning. It is used to review the risks and benefits of offered therapy, elicit and deepen understanding of the underlying illness and therapeutic options, ensure adequate psychosocial support, address existential concerns and coping, and engage in end-of-life planning. Preparedness planning is not meant to replace informed consent discussions. Palliative medicine plays a role in the process of deepening a patients understanding of this specific medical intervention and ensuring this treatment aligns with their goals of care remains a central tenet of the planning conversation. Dtr is very worried about "not giving fluids, I feel like I am starving and dehydrating my mother to ." We discussed CHRIS at EOL: Advised that continuation of tube feedings and IV fluids will not aid to any comfort in the dying process but in fact will create more secretions, bloating and distention, and possible fluid volume overload and progressive edema. Advised that this would likely only prolong the dying process rather than help make it more comfortable. We specifically discussed that artificial nutrition and hydration (AN H) by IV, will not prolong life or improve its quality, but will increase distressing symptoms such as shortness of breath, respiratory congestion, restlessness, nausea and vomiting. Educated family that fluids are often avoided at the very end of life to prevent volume overload in the lungs and other organs and our evidence to date demonstrates that data to suggest that IV hydration is unlikely to provide a meaningful benefit to most hospice patients, even with mild to moderate dehydration. (Mik E, Zarina D, Moisés S, et al. Parenteral hydration in patients with advanced cancer: a multicenter, double- blind, placebo-controlled randomized trial. J Clin Oncol. 2013;31(1):111-118. Doi:10.1200/JCO.2012.44.6518) With regards to Abtx at EOL: I reviewed that if prolongation of life is a primary goal, and the potential benefits of antibiotics are thought to outweigh burdens, then it is reasonable to perform a work-up and treat a suspected infe ction by using the least invasive route of administration and the most narrow spectrum antibiotic therapy while avoiding the stress of hospitalization whenever possible. However, if comfort is a primary goal, it would be reasonable to avoid both a work-up and antibiotics. Instead, focus on relieving symptoms with antipyretics and analgesics. Discussed changes pt may move through in the dying process including but not limited to sleeping more, disorientation when awake, restlessness, diminished senses/inability to respond to stimulus although ability to be aware of them remains intact longer, changes in body temperatures, skin changes/mottling/cyanosis, respiratory pattern changes, oral secretions. Family verbalized understanding. The goal is to assure a peaceful . We spoke about option of home hospice however worries about having enough help to care for pt needs. He is not agreeable to return to [facility] noting "what good is it to trust them again, they already let her fall and it's come to this because of their carelessness. I paid them $10,000 for the month and only have another month's worth I can afford before I'm going to have to sell everything I own to pay for her assisted..." Dtr asked what support hospice provides. We discussed the goals of hospice as a patient service and the goals of care; we discussed EOL trajectories and transitions herrera the emotional impact of realizing mortality as a concrete reality from prior abstract considerations. Dtr was reassured that no matter where they are along this trajectory, they are not alone - their medical team will remain by their side through their journey. Discussed the pros/cons of accepting help when especially weakened and distressed by pain-which would also help provide relief/decrease caregiver burden/strain. I provided education about the hospice benefit: an interdisciplinary program offered by nurses, nurses aides, social workers, chaplains and a medical office secretary for patients with a terminal condition and a life expectancy of less than 6 months. This is covered by Medicare at 100%/no out of pocket expense to patient and all meds/supplies needed by patient for the reason they are on hospice are paid for/covered by hospice. The goal is assure quality of life of the patient in their home setting (home, assisted, inpatient hospice setting) by providing symptoms management, psychosocial and spiritual support. However, they cannot offer 24 hours care and if the family is unable to provide that care, they will have to consider personal care with out of pocket cost vs. assisted placement. We discussed the goals of hospice as a patient service and the goals of care; we discussed EOL trajectories and transitions herrera the emotional impact of realizing mortality as a concrete reality from prior abstract considerations. Pt was reassured that no matter where they are along this trajectory, they are not alone - their medical team will remain by their side through their journey. Discussed the pros/cons of accepting help when especially weakened and distressed by pain-which would also help provide relief/decrease caregiver burden/strain. I encouraged them to meet as a family tonight and discuss the options. They are paying OOP for [facility] and per have already paid $10k for the month. Being that they paid OOP for SNF, she could potentially return there with hospice being covered by Medicare. Dtr affirms pt did not have rehab days remaining bc "she wasn't meeting goals and they said her insurance wouldn't cover more rehab days. So we came up with the money to keep her there." In the interim, we will move her to a comfort care plan and assure her symptoms are managed. If she has an acute decline, we will take care of her in the hospital and would not transfer an actively dying patient. If they want to think about another SNF (they are contemplating getting their money refunded for remaining March and looking into other SNF options perhaps closer to pt home which would be easier for ), then they are also desiring visiting the available facilities to assure themselves of quality care capability as they are very distressed by their poor experience with [facility]. I encouraged them to meet as a family. We will begin comfort care and manage pt through symptoms. We spoke about how the hospital is a place for acute/high level or urgent medical care and when patients reach a more chronic level of care need then they are in need to dc or transfer to the more appropriate level of chronic care whether that is home or SNF/rehab/PCH etc. However, the hospital is not going to "force them out" as inquired and we will support their needs until a suitable dc option is identified, herrera given their traumatic experience with the failure in care from prior SNF. shares that when they completed their kay and EOL wishes, they both elected for no aggressive interventions when such actions would not bring them back to their best meaningful baseline with QOL, and they would not desire to have their EOL journeys prolonged by artificial or invasive means. They would want to have a peaceful end of life, happy in their cosme and knowing what the afterlife would hold for them both, an eventual reunion in [facility]. They have a deep cosme. They have been seeing the analytics director and their instrument room technician has visited as well. No other acute needs identified at this time. Extensive psychosocial support and reassurance provided. (3) Weakness generalized: (4) Sepsis: (5) Acute subdural hematoma: (6) Aspiration into airway: (7) Fall: (8) Dementia: Plan * and dtr in agreement with move to comfort care. * We wpoke at length about the changes we can expect with EOL: Discussed changes pt may move through in the dying process including but not limited to sleeping more, disorientation when awake, restlessness, diminished senses/inability to respond to stimulus although ability to be aware of them remains intact longer, changes in body temperatures, skin changes/mottling/cyanosis, respiratory pattern changes, oral secretions. Family verbalized understanding. The goal is to assure a peaceful . History of Present Illness Reason for Consultation: goals of care, rapid decline Attending Physician: Lisa العلي, DO History of Present Illness Per ED notes, Mrs. Malagon is a 78yo female who presented by ambulance from [facility] for eval of hypoxia: "Patient was found facedown on the floor around 715 last evening at [facility]. She was noted to have an abrasion to her nose and some blood on her lip. She was placed back in bed. A couple of hours later, the patient apparently had an episode of emesis. They were concerned she may have aspirated. Patient was then noted to be hypoxic and EMS was called and she was transferred here. Upon arrival here in the emergency department, the patient does require oxygen to support her oxygen saturation and is tachycardic." And " Once the patient's family arrived here in the emergency department, I spoke with them at the bedside and answered all questions. I confirmed with them that their wishes were to pursue comfort measures and not aggressively treat her intracranial hemorrhage. They were agreeable to treat the sepsis with IV antibiotics. Patient received additional IV crystalloid therapy-30 mls per kilogram." Mrs. Malagon remains unresponsive. Occasional movement. CT scan on presentation shows acute right subdural hematoma right measuring 17 mm and a 14.75 mm midline shift. PULMONOLOGY PHYSICIAN shunt is visualized in place Allergies Allergy/AdvReac Type Severity Reaction Status Date / Time No Known Allergies Allergy Mild 0 Verified 01/14/23 02:16 Home Medications Medication Instructions Recorded Confirmed Type cholecalciferol (vitamin D3) 50 50 mcg PO DAILY 01/01/23 01/14/23 History mcg (2,000 unit) tablet (Vitamin D3) diclofenac sodium 1 % topical gel 2 g topical QID PRN Pain 01/01/23 01/14/23 History escitalopram oxalate 10 mg tablet 10 mg PO DAILY 01/01/23 01/14/23 History levothyroxine 175 mcg tablet 175 mcg PO DAILY 01/01/23 01/14/23 History multivitamin 1 tab PO DAILY 01/01/23 01/14/23 History acetaminophen 325 mg tablet 650 mg PO QID PRN Pain 01/14/23 01/14/23 History (Tylenol) calcium carbonate 500 mg calcium 500 mg PO TID PRN Acid Reflux 01/14/23 01/14/23 History (1,250 mg) chewable tablet docusate sodium 100 mg capsule 100 mg PO BID 01/14/23 01/14/23 History enoxaparin 30 mg/0.3 mL 30 mg subcut DAILY 01/14/23 01/14/23 History subcutaneous syringe (Lovenox) lidocaine 5 % topical patch 2 patch topical DAILY 01/14/23 01/14/23 History (Lidoderm) magnesium hydroxide 400 mg/5 mL 30 ml PO DAILY PRN Constipation 01/14/23 01/14/23 History oral suspension (Milk of Magnesia) melatonin 3 mg tablet 9 mg PO HS 01/14/23 01/14/23 History naproxen 500 mg tablet 500 mg PO BID PRN Pain 01/14/23 01/14/23 History nystatin 100,000 unit/gram topical 1 applic topical BID 01/14/23 01/14/23 History powder ondansetron HCl 4 mg tablet 4 mg PO Q4 PRN Nausea 01/14/23 01/14/23 History sennosides 8.6 mg-docusate sodium 1 tab-cap PO .QLUNCH PRN 01/14/23 01/14/23 History 50 mg tablet (Senokot-S) Constipation Patient History Medical History (Updated 04/03/23 @ 09:43 by Veronica Kirby DNP) Advanced care planning/counseling discussion Anxiety Balance problem Dry eye syndrome DVT prophylaxis Glaucoma Heart murmur Hypothyroidism Low back pain Memory problem Osteoarthritis Overactive bladder Palliative care by specialist Tachycardia Urinary incontinence Weakness generalized Surgical History (Updated 12/09/20 @ 10:23 by Zoran Chandler) History of ankle surgery Left History of cataract surgery RT/LEFT History of colonoscopy History of hysterectomy with unilateral oophorectomy History of right hip replacement History of wisdom tooth extraction Family History Other No family history of adverse response to anesthesia Social History Smoking Status: Unknown if ever smoked Second Hand Exposure: No; Do You Dip or Chew Tobacco: No; Hx Alcohol Use: No Hx Substance Use: No Preferred Language: Spanish Communication Ability: Impaired Icu Manager Required: No Beliefs That Will Affect Care: Sabianism Sabianism Beliefs: Sabianist marital status: Current Living Situation: Care Home Current Living Situation Comment: [facility] Assistive Devices: Walker and Wheelchair Review of Systems Review of Systems: Unobtainable due to reduced consciousness Physical Exam Physical Exam: supine in bed Unresponsive snoring respirations alternating with shallow breathing grimacing and moaning at times Pale, +diaphoretic at times Results & Data Vital Signs (Past 12 Hours) Vital Signs Temp Pulse Pulse Resp BP Pulse Ox O2 Del Method 04/03/23 08:08 37.9 C H 102 H 22 161/77 H 96 Oxymask 04/03/23 06:58 111 H 04/02/23 23:14 102 H 04/02/23 22:16 Oxymask O2 Flow Rate 04/03/23 08:08 2 04/03/23 06:58 04/02/23 23:14 04/02/23 22:16 2 Laboratory Results data reviewed Diagnostic Findings data reviewed/see HPI PG Care Time/CCT Total # of Minutes Spent Total Time Spent: 120 Total Time Spent with Patient: Total time spent is greater than 50% in coordination of care (as documented) at patient's floor/unit and/or counseling patient: I spent 120 minutes overall addressing this very complex/detailed case: 20 in medical data review/discussion with referring provider(s) and/or preparation for the visit incl review of OSH data, reports, consultations 10 in direct interaction with the patient 70 Advance Care Planning/Goals of Care discussions as detailed above in note (must be >16min) 10 in subsequent review and synthesis of assessment and plan 10 in communicating with other providers regarding the patient's case: nursing, primary team Prolonged Care Time Prolonged Care Time: Yes Advanced Care Planning 98212 Advanced Care Planning 30 Min 90077 Advanced Care Planning Additional 30 [place] [address] IN/OBS CONSULT LVL 5,80M Patient Type New History Comprehensive Exam Comprehensive Medical Decision Making High Complexity Diagnoses Palliative care by specialist Z51.5 Advanced care planning/counseling discussion Z71.89 Weakness generalized R53.1 Sepsis A41.9 Acute subdural hematoma S06.5XAA Aspiration into airway T17.908A Fall W19.XXXA Dementia F03.90 Additional Codes Advanced Care Planning - 14594 Advanced Care Planning 30 Min: 64740 Advanced Care Planning 30 Min ([id number]) Advanced Care Planning - 59039 Advanced Care Planning Additional 30 Min: 94958 Advanced Care Planning Additional 30 Min ([id number]) Prolonged Care Time - Prolonged Care Time: Yes ([id number])
[2023-04-03] MEDS: ACETAMINOPHEN 1,000 MG/100 ML VIAL IV PRN (12:22)
[2023-04-03] MEDS ORDERED: MoRPHine SULFATE 2 MG/ML CARP IV PRN (13:58)
--- NOTE | 2023-04-03 16:34 | XRay Report ---
XR chest 1V portable HISTORY: worsening WBC count, hypoxia COMPARISON: Chest 04/01/2023. FINDINGS: No pneumothorax. No pleural effusions. The cardiac silhouette remains mildly enlarged. Diff use interstitial thickening persists. A right-sided ventriculoperitoneal shunt catheter is partially visualized. The tubing appears intact. Mild central pulmonary vascular congestion without overt edema . No new focal lung consolidations to suggest pneumonia. Advanced degenerative changes again noted wi thin the shoulders. IMPRESSION: 1. No new focal lung consolidations. 2. Cardiomegaly with mild central pulmonary vascular congestion without overt edema. ACT 112: Negative or not required by law. Electronically signed by: Evans Prakash M.D. 04/03/2023 4:33 PM
[2023-04-04] MEDS: AMPICILLIN/SULBACTAM SOD 3,000 MG in 0.9 % SODIUM CHLORIDE 100 ML IV SCH ×2 (04:41→12:21)
[2023-04-04] MEDS: MoRPHine SULFATE 2 MG/ML CARP IV PRN ×4 (05:28→15:50)
--- NOTE | 2023-04-04 07:26 | Hospitalist Progress Note ---
Date of Service April 04, 2023 Assessment & Plan (1) Acute subdural hematoma: Plan: Had an unwitnessed fall at outside facility, with CT scan on presentation showing acute right subdural hematoma measuring 17 mm with 14.75 mm midline shift, with minimal improvement on repeat imaging. PURCHASING ADMINISTRATOR shunt is visualized in place. After discussion with family and with Dr. Kirby, comfort measures /supportive care initiated on 04/03, save for continuing Abx as we await family arrival in the coming days. Discussed with daughter that if patient (2) Sepsis: Plan: Patient treated for sepsis on presentation with volume resuscitation and institution of Unasyn therapy after blood cultures were obtained. Possibly sepsis is due to aspiration event (hypoxic and had emesis on admission). WBC count worsening in days previous. Have also considered alternate sources including her PURCHASING ADMINISTRATOR shunt or urine. UA without bacteria or other sign of infection. Continue Unasyn for now as above, goals of comfort at this time. (3) NPH (normal pressure hydrocephalus): Plan: S/p PURCHASING ADMINISTRATOR shunt. (4) Aspiration into airway: Plan: Had vomiting episode with suspected aspiration into airway. Placed on Abx for suspected aspiration pneumonia, however patient was transitioned to comfort care with plan for discharge to home with home hospice. Antibiotics will be discontinued before discharge home. Admission and Anticipated Discharge Date Admission Date: April 01, 2023 Subjective No acute overnight events. Morphine given for pain. Patient's daughter has questions about patient's thirst, and if she is doing patient harm by trying to give her fluids. Review of Systems Review of Systems: All systems reviewed & are unremarkable except as noted in Subjective Physical Exam Constitutional: thin, ill appearing, obtunded Comfortable appearing Cardiovascular: regular, tachycardic PG Care Time/CCT Total # of Minutes Spent Total Time Spent with Patient: Total time spent is greater than 50% in coordination of care (as documented) at patient's floor/unit and/or counseling patient: Coding Level of Care Code 28372 SUB INP/OBS CARE 1/25MIN Diagnoses Acute subdural hematoma S06.5XAA Sepsis A41.9 NPH (normal pressure hydrocephalus) G91.2 Aspiration into airway T17.908A
[2023-04-04] MEDS ORDERED: GLYCOPYRROLATE 0.2 MG/ML VIAL IV PRN (13:26)
--- NOTE | 2023-04-04 15:09 | Discharge Summary ---
Discharge Summary Date of Service April 04, 2023 Admission HPI Per Admitting Provider 78-year-old female was sent from alf facility after a fall patient had concern for aspiration after a period of emesis tachycardia hypoxia on scene. Patient hypoxia stabilized but on evaluation at the emergency room CT scan of the head revealed subdural hematoma with 1.4 cm midline shift. 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 Patient did have a leukocytosis and was volume resuscitated with crystalloid instituting Unasyn therapy patient has declining cognition and interaction family was brought to bedside and comfort care measures were decided with exception of antibiotics to treat possible infection. Patient was discharged from [facility] where she had her FORMING PROCESS WORKER shunt placed due to normal pressure hydrocephalus Admission Exam Per Admitting Provider patient unresponsive verbal stimuli does withdraw somewhat to pain cardiac exam is tachycardic with a systolic murmur lungs are clear but diminished neurologic does not have meaningful responses Principal Dx & Hospital Course #1 = Principal Diagnosis (1) Acute subdural hematoma: (2) Sepsis: (3) NPH (normal pressure hydrocephalus): (4) Aspiration into airway: Plan Acute subdural hematoma: Had an unwitnessed fall at outside facility, with CT scan on presentation showing acute right subdural hematoma measuring 17 mm with 14.75 mm midline shift, with minimal improvement on repeat imaging. FORMING PROCESS WORKER shunt is visualized in place. After discussion with family, comfort measures /supportive care initiated on 04/03, and patient discharged home with home hospice. Appreciate Palliative Care consult this admission. Lorazepam, Roxanol, and Haldol sent to patient's pharmacy for home use until care of these medications is assumed by hospice agency. Sepsis: Patient treated for sepsis on presentation with volume resuscitation and institution of Unasyn therapy after blood cultures were obtained. Possibly sepsis is due to aspiration event (hypoxic and had emesis on admission). WBC count worsening in days previous. Have also considered alternate sources including her FORMING PROCESS WORKER shunt or urine. UA without bacteria or other sign of infection. Continue Unasyn for now as above, goals of comfort at this time. NPH (normal pressure hydrocephalus): S/p FORMING PROCESS WORKER shunt. Aspiration into airway: Had vomiting episode with suspected aspiration into airway prior to admission. Placed on Abx for suspected aspiration pneumonia, however patient was transitioned to comfort care with plan for discharge to home with home hospice. Antibiotics discontinued before discharge home. Discharge Exam Constitutional Thin, ill-appearing, obtunded Comfortable appearing Psychiatric Not alert or oriented Updated Medication List Medication Instructions Recorded Confirmed Type lidocaine 5 % topical patch 2 patch topical DAILY 01/14/23 01/14/23 History (Lidoderm) nystatin 100,000 unit/gram topical 1 applic topical BID 01/14/23 01/14/23 History powder ondansetron HCl 4 mg tablet 4 mg PO Q4 PRN Nausea 01/14/23 01/14/23 History haloperidol lactate 2 mg/mL oral 1 mg (0.5 mL) PO Q4H PRN 04/04/23 Rx concentrate delirium/agitation #30 mL lorazepam 1 mg tablet (Ativan) 0.5 mg PO Q4H PRN 04/04/23 Rx anxiety/myoclonus #10 tabs morphine concentrate 100 mg/5 mL 10 mg (0.5 mL) sublingual Q1H PRN 04/04/23 Rx (20 mg/mL) oral solution pain #60 mL Hospital Stay Data Consultations 04/01/23 06:21 ED Decision to Admit Stat 04/03/23 07:03 Consult Palliative Care Routine Diagnostic Imagining Performed 04/01/23 03:45 CT cervical spine wo con Stat CT head/brain wo con Stat 04/02/23 09:57 CT head/brain wo con Routine Pending Results Patient Have Any Pending Studies at Discharge: No Discharge Instructions Given to Patient (Per Discharging Provider) Nikki was admitted to the hospital for fall. She was found to have a subdural hematoma, a bleed around her brain, causing pressure and pushing of the brain. This is likely what has caused Nikki to have difficulty with waking up, and difficulty with swallowing, and aspiration. After discussion with family, with Dr. Kirby, Dr. العلي, and Pastor Pastrana, decision was made to get Nikki comfortable at home, and proceed with hospice care. Medications for pain and anxiety were sent to her pharmacy. If you have issues with cost or picking up these medications, please call the hospital and/or her hospice nurse. Nikki can stop all medications not indicated for comfort. So, she can continue the lidocaine patches, nystatin, and ondansetron Zofran for nausea) if they help make her comfortable. All of her other pills can be stopped. If she is asking for water, or food, she can have it for her comfort. I have prescribed Roxanol, which is oral morphine, as well as lorazepam, and haloperidol to [facility]. Please read the bottles; these medications are for pain, anxiety, and agitation. Please call the hospice nurse if you have questions or concerns about Nikki, or her medications. Total Time Total Time Spent Total Time Spent (In Minutes): 40 minutes Coding Level of Care Code 88579 INP/OBS DISCH >30 MIN Diagnoses Acute subdural hematoma S06.5XAA Sepsis A41.9 NPH (normal pressure hydrocephalus) G91.2 Aspiration into airway T17.908A
--- NOTE | 2023-04-04 16:42 | Palliative Care Progress Note ---
Date of Service April 04, 2023 Assessment & Plan (1) Palliative care by specialist: (2) Advanced care planning/counseling discussion: (3) Weakness generalized: (4) Hospice care patient: Plan * Family would like dc home with hospice * Meds reviewed with primary team * We met at length with telecommunications line installer to discuss [facility]'s position on [facility]: With regards to the Episcopalian emma and recommendations of life-sustaining therapy in the context of terminal illness,I advised that [facility] does not promote vitalism (preserving physical life at all costs) but rather asks us to embrace the virtues of fidelity (faithfulness to those in need), compassion (suffering with those who are suffering), and individual dignity. Furthermore, itis permissible for a person to refuse medical treatment "when is imminent and cannot be prevented by the remedies used" (Euthanasia, CDF, 1980) or when the "means [medical treatments] are those that in the patient's judgment do not offer a reasonable hope of benefit or entail an excessive burden, or impose excessive expense on the family or the community." * I reviewed the following information re tube feedings from the Ethical and Adventism Directives for Episc[facility] Care Services, Sixth Edition by the [place] [employer] 2018: Medically assisted nutrition and hydration become morally optional when they cannot reasonably be expected to prolong life or when they would be excessively burdensome for the patient or [would] cause significant physical discomfort, for example resulting from complications in the use of the means employed. 41 For instance, as a patient draws close to inevitable from an underlying progressive and fatal condition, certain measures to provide nutrition and hydration may become excessively burdensome and therefore not obligatory in light of their very limited ability to prolong life or provide Comfort. (Orthodox for the Doctrine of the Emma, Commentary on Responses to Certain Questions of the [place] [employer] Concerning Artificial Nutrition and Hydration.). A person has a moral obligation to use ordinary or proportionate means of preserving his or her life. Proportionate means are those that in the judgment of the patient offer a reasonable hope of benefit and do not entail an excessive burden or impose excessive expense on the family or the community. Food and waterwhether by mouth or by artificial meansare considered obligatory unless a person is imminently dying. However, the use of other technology may be optional depending on whether the means (treatments) are "ordinary" or "extraordinary." The technical term for a "feeding tube" is "artificial nutrition and hydration" in which food and water are provided by alternate means to a patient unable to eat and drink by mouth. The provision of food and water is not considered medical treatment but basic comfort care. However, the feeding of a dying patient may not be in the patient's best interest if the patient's is imminent or if the patient is unable to assimilate the nutrition. Nonetheless, water should always be offered. A feeding tube may be temporary if inserted through the nose to the stomach for medicines, hydration, and nutrition. buttermaker tube feedings requires a tube being surgically placed through the abdomen into the stomach. The National Palliative Care Programs Guidelines for a Palliative Approach in Residential Aged Care contains much valuable advice about good nutritional care in an aged care facility. Good care includes early recognition of weight loss and identification and management of likely causes (e.g. adverse medication effects, poor oral health or depression). And giving residents oral foods and fluid, even in small amounts, is preferable to using more invasive enteral (e.g. nasogastric or PEG) feeding methods. Most importantly, the Guidelines provide a Tube Feeding Decision Aid which may be used with residents and their families to help them decide whether or not to pursue tube feeding. In many cases, the use of this Aid will help persons with dementia and their families to recognize that for them tube feeding would be futile or burdensome or even both, and therefore that it is for them an extraordinary means of preserving life which may legitimately be refused, withheld or withdrawn. ACP, face to face x 60min Thank you for allowing us to participate in the ongoing care of this patient. Please don't hesitate to call or page with any additional concerns. Dr. Veronica Kirby DNP Director, Palliative Care Admission and Anticipated Discharge Date Admission Date: April 01, 2023 Subjective family electing home hospice Results & Data Vital Signs (Past 12 Hours) Vital Signs Temp Pulse Pulse Resp BP BP Pulse Ox 04/04/23 15:42 37.9 C H 119 H 112 H 22 156/75 H 170/75 H 96 04/04/23 15:38 37.9 C H 119 H 112 H 22 156/75 H 170/75 H 96 04/04/23 08:10 O2 Del Method 04/04/23 15:42 04/04/23 15:38 04/04/23 08:10 Room Air PG Care Time/CCT Total # of Minutes Spent Total Time Spent: 80 Total Time Spent with Patient: Total time spent is greater than 50% in coordination of care (as documented) at patient's floor/unit and/or counseling patient: Advanced Care Planning 29235 Advanced Care Planning 30 Min [place] [address] SUB INP/OBS CARE 3/50MIN Patient Type Established Medical Decision Making High Complexity Diagnoses Palliative care by specialist Z51.5 Advanced care planning/counseling discussion Z71.89 Weakness generalized R53.1 Hospice care patient Z51.5 Additional Codes Advanced Care Planning - 67919 Advanced Care Planning 30 Min: 98550 Advanced Care Planning 30 Min ([id number])
--- NOTE | 2023-04-05 10:25 | Coding Query ---
CODING QUERY To promote full compliance with coding requirements relating to patient care, provider participation is requested in all cases of tunneling machine operator uncertainty. Please assist us with the question(s) below: Coding Question(s): 04/01/23 ER documentation regarding chest xray - concern for a right lower lobe aspiration pneumonia. H&P - Concern for aspiration after a period of emesis. Patient was treated with Unasyn and oxygen therapy. Please document any relevant diagosis related to the above. Physician's Response(s): aspiration pneumonia Thank you Ronda Nation Principal Diagnosis: "that condition established after study, to be chiefly responsible for occasioning the admission of the patient to the hospital for care." Co-Existing Principal Diagnosis: "when two or more diagnoses equally meet the criteria for principal diagnosis as determined by the circumstances of admission, diagnostic work up, and/or therapy provided, and the Alphabetic Index, Tabular List, or another coding guideline does not provide sequencing direction, any one of the diagnoses may be sequenced first." "When the physician has documented what appears to be a current diagnosis in the body of the record, but has not included the diagnosis in the final diagnostic statement, the physician should be asked whether the diagnosis should be added." (Source Coding Clinic 2 QTR90. p3-4) RICARDO
== END 2023-04-04 16:18 | disposition hospice, home (50) | DRG 82 ==
LOC: ED 02:54 → SUATTDRO 07:17 → 2N 07:17 → 2W 04-03 21:16
DX: G91.2 (Idiopathic) normal pressure hydrocephalus; A41.9 Sepsis, unspecified organism; Z98.2 Presence of cerebrospinal fluid drainage device; R09.02 Hypoxemia; Z79.899 Other long term (current) drug therapy; Z51.5 Encounter for palliative care; F03.90 Unspecified dementia, unspecified severity, without behavioral disturbance, psychotic disturbance, mood disturbance, and anxiety; S06.5XAA Traumatic subdural hemorrhage with loss of consciousness status unknown, initial encounter; Z71.89 Other specified counseling; W19.XXXA Unspecified fall, initial encounter; T17.908A Unspecified foreign body in respiratory tract, part unspecified causing other injury, initial encounter; Z79.890 Hormone replacement therapy; Z20.822 Contact with and (suspected) exposure to COVID-19; J69.0 Pneumonitis due to inhalation of food and vomit